=== PATIENT | female | born 1955 | race Caucasian/White ===

== ENCOUNTER → 2018-06-13 | Day surgery (SDC) | payer BC ==
[2018-06-11 11:55] LABS: Basophils # (auto) 0 uL; Basophils % (auto) 0.3 % (0.0-2.0); Eosinophils # (auto) 0.1 uL; Eosinophils % (auto) 1.9 % (0.0-7.0); Hematocrit 38.9 % (36.0-46.0); Hemoglobin 12.8 g/dL (12.2-16.2); Lymphocytes # (auto) 1.9 uL; Lymphocytes % (auto) 31.9 % (10.0-50.0); Mean Corpuscular Volume 94.1 fL (80.0-100.0); Monocytes # (auto) 0.1 uL; Monocytes % (auto) 1.6 % (0.0-12.0); Neutrophils # (auto) 3.9 uL; Neutrophils % (auto) 64.3 % (37.0-80.0); Platelet Count (auto) 287 10^3/uL (140-450); Red Blood Cells 4.14 10^6/uL (4.0-5.20); Red Cell Distribution Width 13.1 % (11.8-14.3); White Blood Cell 6.1 10^3/uL (4.4-10.8)
[2018-06-11 12:05] LABS: INR 0.87 (0.9-1.15); Partial Thromboplastin Time 25.4 sec (23.78-33.04); Prothrombin Time 9.4 sec (9.27-12.13)
[2018-06-11 12:07] LABS: Potassium 3.6 mmol/L (3.5-5.1)
[2018-06-11 12:12] LABS: Urine Bacteria NONE SEEN /hpf (None Seen); Urine Blood Negative /uL (Negative); Urine Specific Gravity 1.003 (1.001-1.035); Urine WBC <1 /hpf (0 - 5)
[2018-06-11 12:15] LABS: Albumin 3.6 g/dL (3.4-5.0); Bilirubin, Total 0.6 mg/dL (0.2-1.0); Calcium 8.7 mg/dL (8.5-10.1); Total Protein 7.2 g/dL (6.4-8.2)
[~2018-06-13] VITALS: Ht 157.5 cm; Wt 63.5 kg
[~2018-06-13] MED LIST: ALBU1AER4 IN; FLUT1AER3 IN; GLYCOPYRROLATE 0.2 MG/ML 1ML VIAL ONE; HEPARIN 1,000 UNITS/ml 1ML VIAL ONE; HEPARIN SODIUM (PORCINE) 5000 UNITS/ML 1ML VIAL ONE; HYDROmorphone HCL 2 MG/ML VL IV PRN; LEVO25TA6 PO; LEVOFLOXACIN 500MG 100 ML IV ONE; LIDOCAINE 1% HCL (LOCAL ANESTH.) INJ 20ML MDV ONE; LISI-646 PO; METOCLOPRAMIDE HCL 5MG/ml INJ 2ml VIAL ONE; MIDAZOLAM HCL 1MG/1ML-2 ML VIAL ONE; NALOXONE HCL 0.4 MG/ML VIAL IV PRN; ONDANSETRON HCL 4 MG/2 ML VIAL IV ONE; PROPOFOL 10 MG/ML 20 ML IV ONE; SIMV10TA84 PO; diphenhdrAMINE HCL 50 MG/1 ML VL ONE; fentaNYL CITRATE 100 MCG/2 ML VL ONE
[2018-06-13 10:07] VITALS: BP 135/78
== END | disposition home or self-care (01) ==
LOC: EDUNIT# → SUR 07:53
PROVIDERS: ATTEND Surgery
DX: C34.90 Malignant neoplasm of unspecified part of unspecified bronchus or lung (principal); J44.9 Chronic obstructive pulmonary disease, unspecified; G47.33 Obstructive sleep apnea (adult) (pediatric); J45.909 Unspecified asthma, uncomplicated; E11.42 Type 2 diabetes mellitus with diabetic polyneuropathy; E03.9 Hypothyroidism, unspecified; E78.00 Pure hypercholesterolemia, unspecified; Z90.49 Acquired absence of other specified parts of digestive tract; Z98.890 Other specified postprocedural states; Z88.0 Allergy status to penicillin; Z88.8 Allergy status to other drugs, medicaments and biological substances; Z79.899 Other long term (current) drug therapy; Z79.82 Long term (current) use of aspirin
CPT/HCPCS: 36415; 36561; 71045; 80053; 81001; 85025; 85610; 85730; C1788; J1200; J1644; J1956; J2001; J2250; J2704; J2765; J3010; J7040

== ENCOUNTER → 2018-06-20 | Outpatient (CLI) | payer BC ==
[~2018-06-20] MED LIST changes: -GLYCOPYRROLATE 0.2 MG/ML 1ML VIAL ONE; -HEPARIN 1,000 UNITS/ml 1ML VIAL ONE; -HEPARIN SODIUM (PORCINE) 5000 UNITS/ML 1ML VIAL ONE; -HYDROmorphone HCL 2 MG/ML VL IV PRN; -LEVOFLOXACIN 500MG 100 ML IV ONE; -LIDOCAINE 1% HCL (LOCAL ANESTH.) INJ 20ML MDV ONE; -METOCLOPRAMIDE HCL 5MG/ml INJ 2ml VIAL ONE; -MIDAZOLAM HCL 1MG/1ML-2 ML VIAL ONE; -NALOXONE HCL 0.4 MG/ML VIAL IV PRN; -ONDANSETRON HCL 4 MG/2 ML VIAL IV ONE; -PROPOFOL 10 MG/ML 20 ML IV ONE; -diphenhdrAMINE HCL 50 MG/1 ML VL ONE; -fentaNYL CITRATE 100 MCG/2 ML VL ONE
[2018-06-20 10:36] LABS: Hematocrit 35.6 % (36.0-46.0); Hemoglobin 12.1 g/dL (12.2-16.2); Mean Corpuscular Hemoglobin 31.9 pg (28.0-32.0); Mean Corpuscular Volume 93.8 fL (80.0-100.0); Platelet Count (auto) 225 10^3/uL (140-450); Red Blood Cells 3.79 10^6/uL (4.0-5.20); Red Cell Distribution Width 12.7 % (11.8-14.3); White Blood Cell 2.8 10^3/uL (4.4-10.8)
[2018-06-20 10:51] LABS: Band Neutrophils % (manual) 0; Basophils % (manual) 0 (0.0-2.0); Blast Cells 0; Eosinophils % (manual) 0 (0-7); Metamyelocytes % 0; Myelocytes % 0; Promyelocytes % 0; Reactive Lymphocytes 0
[2018-06-20 11:49] LABS: Lymphocytes % (manual) 65 (10.0-50.0); Monocytes % (manual) 18 (0-12)
[2018-06-20 12:17] LABS: Albumin 3.6 g/dL (3.4-5.0); BUN/Creatinine Ratio 20.3; Calcium 8.6 mg/dL (8.5-10.1); Potassium 3.9 mmol/L (3.5-5.1)
[2018-06-20 12:20] LABS: Bilirubin, Total 0.2 mg/dL (0.2-1.0); Total Protein 7.7 g/dL (6.4-8.2)
== END | disposition home or self-care (01) ==
LOC: LAB 09:01
PROVIDERS: ATTEND Internal Medicine
DX: C34.2 Malignant neoplasm of middle lobe, bronchus or lung (principal)
CPT/HCPCS: 36415; 80053; 85007; 85027

== ENCOUNTER 2018-06-21 17:00 | Emergency (ER) | payer BC ==
[~2018-06-21] VITALS: Ht 157.5 cm; Wt 63.5 kg
[2018-06-21 18:13] LABS: Albumin 3.4 g/dL (3.4-5.0); Calcium 8.1 mg/dL (8.5-10.1); Potassium 3.6 mmol/L (3.5-5.1)
[2018-06-21 18:15] LABS: BUN/Creatinine Ratio 18.7
[2018-06-21 18:16] LABS: Hematocrit 32.6 % (36.0-46.0); Hemoglobin 11.2 g/dL (12.2-16.2); Mean Corpuscular Hemoglobin 31.9 pg (28.0-32.0); Mean Corpuscular Hgb Conc. 34.3 g/dL (32.0-36.0); Mean Corpuscular Volume 93.2 fL (80.0-100.0); Platelet Count (auto) 293 10^3/uL (140-450); Red Cell Distribution Width 12.7 % (11.8-14.3); White Blood Cell 4.3 10^3/uL (4.4-10.8)
[2018-06-21 18:17] LABS: Bilirubin, Total 0.3 mg/dL (0.2-1.0); Total Protein 7.1 g/dL (6.4-8.2)
[2018-06-21 18:26] LABS: Band Neutrophils % (manual) 0; Basophils % (manual) 0 (0.0-2.0); Blast Cells 0; Metamyelocytes % 0; Myelocytes % 0; Promyelocytes % 0; Reactive Lymphocytes 0
[2018-06-21] MEDS ORDERED: SODIUM CHLORIDE 0.9% 250 ML IV ONE (20:15)
[2018-06-21 20:21] LABS: Eosinophils % (manual) 3 (0-7); Lymphocytes % (manual) 45 (10.0-50.0); Monocytes % (manual) 12 (0-12)
[2018-06-21 20:38] LABS: Urine Bacteria NONE SEEN /hpf (None Seen); Urine Blood Negative /uL (Negative); Urine Specific Gravity 1.007 (1.001-1.035); Urine WBC <1 /hpf (0 - 5)
[2018-06-21 22:22] VITALS: BP 122/82
== END 2018-06-21 22:23 | disposition home or self-care (01) ==
LOC: ER 17:02
DX: D72.819 Decreased white blood cell count, unspecified (principal); C34.91 Malignant neoplasm of unspecified part of right bronchus or lung; E11.9 Type 2 diabetes mellitus without complications; I10 Essential (primary) hypertension; E03.9 Hypothyroidism, unspecified
CPT/HCPCS: 36415; 71046; 80053; 81001; 84484; 85007; 85027; 93005; 96360

== ENCOUNTER → 2018-06-25 | Outpatient (CLI) | payer BC ==
[2018-06-25 09:58] LABS: Hematocrit 35.5 % (36.0-46.0); Hemoglobin 11.7 g/dL (12.2-16.2); Mean Corpuscular Hemoglobin 30.9 pg (28.0-32.0); Mean Corpuscular Hgb Conc. 32.9 g/dL (32.0-36.0); Mean Corpuscular Volume 93.9 fL (80.0-100.0); Platelet Count (auto) 488 10^3/uL (140-450); Red Blood Cells 3.78 10^6/uL (4.0-5.20); Red Cell Distribution Width 13.2 % (11.8-14.3); White Blood Cell 7.3 10^3/uL (4.4-10.8)
[2018-06-25 10:15] LABS: Basophils % (manual) 0 (0.0-2.0); Blast Cells 0; Metamyelocytes % 0; Myelocytes % 0; Promyelocytes % 0; Reactive Lymphocytes 0
[2018-06-25 11:15] LABS: Band Neutrophils % (manual) 1; Eosinophils % (manual) 1 (0-7); Lymphocytes % (manual) 31 (10.0-50.0); Monocytes % (manual) 15 (0-12)
== END | disposition home or self-care (01) ==
LOC: LAB 09:52
PROVIDERS: ATTEND Internal Medicine
DX: C34.2 Malignant neoplasm of middle lobe, bronchus or lung (principal)
CPT/HCPCS: 36415; 85007; 85027

== ENCOUNTER → 2018-07-11 | Outpatient (CLI) | payer BC ==
[2018-07-11 09:55] LABS: Hematocrit 32.3 % (36.0-46.0); Hemoglobin 10.8 g/dL (12.2-16.2); Mean Corpuscular Hemoglobin 31.2 pg (28.0-32.0); Mean Corpuscular Hgb Conc. 33.4 g/dL (32.0-36.0); Mean Corpuscular Volume 93.4 fL (80.0-100.0); Platelet Count (auto) 89 10^3/uL (140-450); Red Blood Cells 3.46 10^6/uL (4.0-5.20); Red Cell Distribution Width 13.3 % (11.8-14.3); White Blood Cell 25.2 10^3/uL (4.4-10.8)
[2018-07-11 10:06] LABS: Basophils % (manual) 0 (0.0-2.0); Blast Cells 0; Promyelocytes % 0; Reactive Lymphocytes 0
[2018-07-11 10:14] LABS: Chloride 102 mmol/L (98-107); Sodium 136 mmol/L (136-145)
[2018-07-11 10:20] LABS: Alanine Aminotransferase 18 U/L (13-56); Albumin 3.6 g/dL (3.4-5.0); Alkaline Phosphatase 137 U/L (45-117); Anion Gap 6 (5-15); Aspartate Aminotransferase 23 U/L (15-37); BUN/Creatinine Ratio 18.7; Bilirubin, Total 0.3 mg/dL (0.2-1.0); Blood Urea Nitrogen 14 mg/dL (7-18); Calcium 8.8 mg/dL (8.5-10.1); Carbon Dioxide 28 mmol/L (21-32); GFR African American > 60 mL/min; GFR Non-African American > 60 mL/min; Glucose 114 mg/dL (74-106); Total Protein 7.6 g/dL (6.4-8.2)
[2018-07-11 13:22] LABS: Band Neutrophils % (manual) 8; Eosinophils % (manual) 2 (0-7); Lymphocytes % (manual) 17 (10.0-50.0); Metamyelocytes % 2; Monocytes % (manual) 6 (0-12); Myelocytes % 2
== END | disposition home or self-care (01) ==
LOC: LAB 09:41
PROVIDERS: ATTEND Internal Medicine
DX: C34.2 Malignant neoplasm of middle lobe, bronchus or lung (principal)
CPT/HCPCS: 36415; 80053; 85007; 85027

== ENCOUNTER → 2018-07-17 | Outpatient (CLI) | payer BC ==
[2018-07-17 09:32] LABS: Hematocrit 30.5 % (36.0-46.0); Hemoglobin 10.3 g/dL (12.2-16.2); Mean Corpuscular Hgb Conc. 33.8 g/dL (32.0-36.0)
[2018-07-17 09:36] LABS: Mean Corpuscular Hemoglobin 31.5 pg (28.0-32.0); Mean Corpuscular Volume 93.2 fL (80.0-100.0); Platelet Count (auto) 544 10^3/uL (140-450); Red Blood Cells 3.27 10^6/uL (4.0-5.20); Red Cell Distribution Width 13.8 % (11.8-14.3); White Blood Cell 12.8 10^3/uL (4.4-10.8)
[2018-07-17 09:43] LABS: Basophils % (manual) 0 (0.0-2.0); Blast Cells 0; Metamyelocytes % 0; Myelocytes % 0; Promyelocytes % 0; Reactive Lymphocytes 0
[2018-07-17 11:16] LABS: Band Neutrophils % (manual) 2; Eosinophils % (manual) 1 (0-7); Lymphocytes % (manual) 19 (10.0-50.0); Monocytes % (manual) 10 (0-12)
== END | disposition home or self-care (01) ==
LOC: LAB 09:19
PROVIDERS: ATTEND Internal Medicine
DX: C34.90 Malignant neoplasm of unspecified part of unspecified bronchus or lung (principal)
CPT/HCPCS: 36415; 85007; 85027

== ENCOUNTER → 2018-07-25 | Outpatient (CLI) | payer BC ==
[2018-07-25 10:17] LABS: Basophils # (auto) 0 uL; Basophils % (auto) 0.8 % (0.0-2.0); Eosinophils # (auto) 0 uL; Eosinophils % (auto) 0.7 % (0.0-7.0); Hematocrit 30.6 % (36.0-46.0); Hemoglobin 10.4 g/dL (12.2-16.2); Lymphocytes # (auto) 1.9 uL; Mean Corpuscular Hemoglobin 31.9 pg (28.0-32.0); Mean Corpuscular Hgb Conc. 33.9 g/dL (32.0-36.0); Mean Corpuscular Volume 94.1 fL (80.0-100.0); Monocytes # (auto) 0.7 uL; Monocytes % (auto) 10.9 % (0.0-12.0); Neutrophils # (auto) 3.4 uL; Neutrophils % (auto) 56.6 % (37.0-80.0); Platelet Count (auto) 403 10^3/uL (140-450); Red Blood Cells 3.26 10^6/uL (4.0-5.20); Red Cell Distribution Width 14.6 % (11.8-14.3)
[2018-07-25 11:53] LABS: Albumin 3.5 g/dL (3.4-5.0); BUN/Creatinine Ratio 18.8; Bilirubin, Total 0.6 mg/dL (0.2-1.0); Calcium 8.6 mg/dL (8.5-10.1); Total Protein 7.7 g/dL (6.4-8.2)
== END | disposition home or self-care (01) ==
LOC: LAB 09:47
PROVIDERS: ATTEND Internal Medicine
DX: C34.2 Malignant neoplasm of middle lobe, bronchus or lung (principal)
CPT/HCPCS: 36415; 80053; 85025

== ENCOUNTER → 2018-08-07 | Outpatient (CLI) | payer BC ==
[2018-08-07 09:19] LABS: Hematocrit 29.3 % (36.0-46.0); Hemoglobin 9.9 g/dL (12.2-16.2); Mean Corpuscular Hemoglobin 32.2 pg (28.0-32.0); Mean Corpuscular Hgb Conc. 33.6 g/dL (32.0-36.0); Mean Corpuscular Volume 95.7 fL (80.0-100.0); Platelet Count (auto) 386 10^3/uL (140-450); Red Blood Cells 3.06 10^6/uL (4.0-5.20); Red Cell Distribution Width 16.3 % (11.8-14.3); White Blood Cell 12.4 10^3/uL (4.4-10.8)
[2018-08-07 09:22] LABS: Basophils % (manual) 0 (0.0-2.0); Blast Cells 0; Myelocytes % 0; Promyelocytes % 0; Reactive Lymphocytes 0
[2018-08-07 09:27] LABS: BUN/Creatinine Ratio 16.2; Calcium 8.4 mg/dL (8.5-10.1); Potassium 3.9 mmol/L (3.5-5.1)
[2018-08-07 12:40] LABS: Band Neutrophils % (manual) 3; Eosinophils % (manual) 4 (0-7); Lymphocytes % (manual) 22 (10.0-50.0); Metamyelocytes % 1; Monocytes % (manual) 13 (0-12)
== END | disposition home or self-care (01) ==
LOC: LAB 09:00
PROVIDERS: ATTEND Internal Medicine
DX: C34.2 Malignant neoplasm of middle lobe, bronchus or lung (principal)
CPT/HCPCS: 36415; 80048; 85007; 85027

== ENCOUNTER → 2018-08-27 | Outpatient (CLI) | payer BC ==
[2018-08-27 13:19] LABS: Hematocrit 27.3 % (36.0-46.0); Hemoglobin 9.2 g/dL (12.2-16.2); Mean Corpuscular Hemoglobin 33.2 pg (28.0-32.0); Mean Corpuscular Hgb Conc. 33.5 g/dL (32.0-36.0); Mean Corpuscular Volume 99.1 fL (80.0-100.0); Platelet Count (auto) 265 10^3/uL (140-450); Red Blood Cells 2.76 10^6/uL (4.0-5.20); Red Cell Distribution Width 18.3 % (11.8-14.3); White Blood Cell 12.5 10^3/uL (4.4-10.8)
[2018-08-27 13:24] LABS: Band Neutrophils % (manual) 0; Basophils % (manual) 0 (0.0-2.0); Blast Cells 0; Eosinophils % (manual) 0 (0-7); Metamyelocytes % 0; Myelocytes % 0; Promyelocytes % 0; Reactive Lymphocytes 0
[2018-08-27 13:48] LABS: Albumin 3.9 g/dL (3.4-5.0); BUN/Creatinine Ratio 18.5; Bilirubin, Total 0.2 mg/dL (0.2-1.0); Calcium 8.5 mg/dL (8.5-10.1); Total Protein 7.8 g/dL (6.4-8.2)
[2018-08-27 14:22] LABS: Lymphocytes % (manual) 23 (10.0-50.0); Monocytes % (manual) 6 (0-12)
== END | disposition home or self-care (01) ==
LOC: LAB 12:32
PROVIDERS: ATTEND Internal Medicine
DX: C34.2 Malignant neoplasm of middle lobe, bronchus or lung (principal)
CPT/HCPCS: 36415; 80053; 83615; 85007; 85027

== ENCOUNTER → 2018-09-12 | Outpatient (CLI) | payer BC ==
[2018-09-12 12:59] LABS: Hemoglobin 8.4 g/dL (12.2-16.2); Platelet Count (auto) 75 10^3/uL (140-450)
[2018-09-12 13:01] LABS: Hematocrit 24.3 % (36.0-46.0); Mean Corpuscular Hemoglobin 34.7 pg (28.0-32.0); Mean Corpuscular Hgb Conc. 34.4 g/dL (32.0-36.0); Mean Corpuscular Volume 100.9 fL (80.0-100.0); Red Blood Cells 2.41 10^6/uL (4.0-5.20); White Blood Cell 23.6 10^3/uL (4.4-10.8)
[2018-09-12 13:10] LABS: Red Cell Distribution Width 20.5 % (11.8-14.3)
[2018-09-12 13:12] LABS: Basophils % (manual) 0 (0.0-2.0); Eosinophils % (manual) 0 (0-7); Promyelocytes % 0; Reactive Lymphocytes 0
[2018-09-12 13:32] LABS: Albumin 3.8 g/dL (3.4-5.0); Calcium 8.4 mg/dL (8.5-10.1); Potassium 3.8 mmol/L (3.5-5.1)
[2018-09-12 13:36] LABS: BUN/Creatinine Ratio 14.1; Bilirubin, Total 0.2 mg/dL (0.2-1.0); Total Protein 7.7 g/dL (6.4-8.2)
[2018-09-12 20:55] LABS: Band Neutrophils % (manual) 20; Lymphocytes % (manual) 12 (10.0-50.0); Metamyelocytes % 8; Monocytes % (manual) 8 (0-12)
[2018-09-12 21:21] LABS: Blast Cells 1; Myelocytes % 1
== END | disposition home or self-care (01) ==
LOC: LAB 12:34
PROVIDERS: ATTEND Internal Medicine
DX: C34.2 Malignant neoplasm of middle lobe, bronchus or lung (principal)
CPT/HCPCS: 36415; 80053; 83615; 85007; 85027

== ENCOUNTER → 2018-09-17 | Outpatient (CLI) | payer BC ==
[2018-09-17 12:56] LABS: Hemoglobin 8.7 g/dL (12.2-16.2); Mean Corpuscular Volume 104.1 fL (80.0-100.0)
[2018-09-17 12:59] LABS: Hematocrit 26.5 % (36.0-46.0); Mean Corpuscular Hemoglobin 34.1 pg (28.0-32.0); Mean Corpuscular Hgb Conc. 32.8 g/dL (32.0-36.0); Platelet Count (auto) 292 10^3/uL (140-450); Red Blood Cells 2.55 10^6/uL (4.0-5.20); White Blood Cell 21.4 10^3/uL (4.4-10.8)
[2018-09-17 13:26] LABS: Red Cell Distribution Width 22.6 % (11.8-14.3)
[2018-09-17 13:27] LABS: Basophils % (manual) 0 (0.0-2.0); Blast Cells 0; Calcium 8.9 mg/dL (8.5-10.1); Eosinophils % (manual) 0 (0-7); Metamyelocytes % 0; Myelocytes % 0; Potassium 4.1 mmol/L (3.5-5.1); Promyelocytes % 0; Reactive Lymphocytes 0
[2018-09-17 13:30] LABS: BUN/Creatinine Ratio 17.2; Bilirubin, Total 0.3 mg/dL (0.2-1.0); Total Protein 7.6 g/dL (6.4-8.2)
[2018-09-17 17:42] LABS: Band Neutrophils % (manual) 7; Lymphocytes % (manual) 10 (10.0-50.0); Monocytes % (manual) 8 (0-12)
== END | disposition home or self-care (01) ==
LOC: LAB 12:20
PROVIDERS: ATTEND Internal Medicine
DX: C34.2 Malignant neoplasm of middle lobe, bronchus or lung (principal)
CPT/HCPCS: 36415; 80053; 83615; 85007; 85027

== ENCOUNTER → 2018-10-09 | Outpatient (CLI) | payer BC ==
[2018-10-09 13:06] LABS: Hemoglobin 8.3 g/dL (12.2-16.2); Mean Corpuscular Hgb Conc. 32.6 g/dL (32.0-36.0)
[2018-10-09 13:08] LABS: Hematocrit 25.4 % (36.0-46.0); Mean Corpuscular Hemoglobin 35.5 pg (28.0-32.0); Platelet Count (auto) 243 10^3/uL (140-450); Red Blood Cells 2.33 10^6/uL (4.0-5.20); White Blood Cell 17.9 10^3/uL (4.4-10.8)
[2018-10-09 13:18] LABS: Red Cell Distribution Width 22.1 % (11.8-14.3)
[2018-10-09 13:19] LABS: Basophils % (manual) 0 (0.0-2.0); Blast Cells 0; Promyelocytes % 0; Reactive Lymphocytes 0
[2018-10-09 13:23] LABS: Albumin 3.9 g/dL (3.4-5.0); BUN/Creatinine Ratio 21.1; Calcium 8.3 mg/dL (8.5-10.1)
[2018-10-09 13:26] LABS: Bilirubin, Total 0.2 mg/dL (0.2-1.0); Total Protein 7.3 g/dL (6.4-8.2)
[2018-10-09 13:41] LABS: Band Neutrophils % (manual) 2; Eosinophils % (manual) 1 (0-7); Lymphocytes % (manual) 17 (10.0-50.0); Metamyelocytes % 2; Monocytes % (manual) 7 (0-12); Myelocytes % 2
== END | disposition home or self-care (01) ==
LOC: LAB 12:50
PROVIDERS: ATTEND Internal Medicine
DX: C34.2 Malignant neoplasm of middle lobe, bronchus or lung (principal)
CPT/HCPCS: 36415; 80053; 83615; 85007; 85027

== ENCOUNTER → 2018-10-26 | Outpatient (CLI) | payer BC ==
[2018-10-26 08:20] LABS: Basophils # (auto) 0 uL; Basophils % (auto) 0.4 % (0.0-2.0); Eosinophils # (auto) 0.2 uL; Eosinophils % (auto) 3.8 % (0.0-7.0); Hematocrit 38.1 % (36.0-46.0); Hemoglobin 12.3 g/dL (12.2-16.2); Lymphocytes # (auto) 1.6 uL; Lymphocytes % (auto) 27.1 % (10.0-50.0); Mean Corpuscular Hemoglobin 36.4 pg (28.0-32.0); Mean Corpuscular Hgb Conc. 32.3 g/dL (32.0-36.0); Mean Corpuscular Volume 112.6 fL (80.0-100.0); Monocytes # (auto) 0.5 uL; Monocytes % (auto) 7.7 % (0.0-12.0); Neutrophils # (auto) 3.6 uL; Platelet Count (auto) 257 10^3/uL (140-450); Red Blood Cells 3.39 10^6/uL (4.0-5.20); Red Cell Distribution Width 19.6 % (11.8-14.3); White Blood Cell 5.9 10^3/uL (4.4-10.8)
[2018-10-26 09:12] LABS: Magnesium 2.3 mg/dL (1.6-2.6)
== END | disposition home or self-care (01) ==
LOC: LAB 07:32
PROVIDERS: ATTEND Internal Medicine
DX: E11.9 Type 2 diabetes mellitus without complications (principal); I10 Essential (primary) hypertension; R25.2 Cramp and spasm
CPT/HCPCS: 36415; 80061; 82550; 82607; 83036; 83540; 83735; 84132; 85025

== ENCOUNTER → 2018-12-10 | Outpatient (CLI) | payer BC ==
[2018-12-10 12:42] LABS: Basophils # (auto) 0 uL; Eosinophils # (auto) 0.1 uL; Hemoglobin 11.9 g/dL (12.2-16.2); Lymphocytes # (auto) 1.5 uL; Monocytes # (auto) 0.6 uL; Neutrophils # (auto) 1.8 uL; Neutrophils % (auto) 44.3 % (37.0-80.0)
[2018-12-10 12:44] LABS: Basophils % (auto) 0.3 % (0.0-2.0); Eosinophils % (auto) 3.1 % (0.0-7.0); Hematocrit 34.6 % (36.0-46.0); Lymphocytes % (auto) 37.9 % (10.0-50.0); Mean Corpuscular Hemoglobin 35.5 pg (28.0-32.0); Mean Corpuscular Hgb Conc. 34.5 g/dL (32.0-36.0); Mean Corpuscular Volume 102.7 fL (80.0-100.0); Monocytes % (auto) 14.4 % (0.0-12.0); Nucleated Red Blood Cells % 0.2 %; Platelet Count (auto) 250 10^3/uL (140-450); Red Blood Cells 3.37 10^6/uL (4.0-5.20); Red Cell Distribution Width 14.2 % (11.8-14.3)
[2018-12-10 13:45] LABS: Potassium 3.5 mmol/L (3.5-5.1)
[2018-12-10 13:51] LABS: Albumin 3.3 g/dL (3.4-5.0); Bilirubin, Total 0.4 mg/dL (0.2-1.0); Calcium 8.9 mg/dL (8.5-10.1); Total Protein 7.4 g/dL (6.4-8.2)
== END | disposition home or self-care (01) ==
LOC: LAB 12:19
PROVIDERS: ATTEND Internal Medicine
DX: C34.2 Malignant neoplasm of middle lobe, bronchus or lung (principal); I10 Essential (primary) hypertension; E11.9 Type 2 diabetes mellitus without complications
CPT/HCPCS: 36415; 80053; 83615; 85025

== ENCOUNTER → 2018-12-31 | Outpatient (CLI) | payer BC ==
[2018-12-31 13:02] LABS: Basophils # (auto) 0 uL; Basophils % (auto) 0.8 % (0.0-2.0); Eosinophils # (auto) 0.3 uL; Eosinophils % (auto) 5.5 % (0.0-7.0); Hematocrit 37.8 % (36.0-46.0); Hemoglobin 12.9 g/dL (12.2-16.2); Lymphocytes % (auto) 36.9 % (10.0-50.0); Mean Corpuscular Hemoglobin 33.9 pg (28.0-32.0); Mean Corpuscular Hgb Conc. 34.2 g/dL (32.0-36.0); Mean Corpuscular Volume 99.1 fL (80.0-100.0); Monocytes # (auto) 0.7 uL; Monocytes % (auto) 12.9 % (0.0-12.0); Neutrophils # (auto) 2.3 uL; Neutrophils % (auto) 43.9 % (37.0-80.0); Nucleated Red Blood Cells % 0.1 %; Platelet Count (auto) 266 10^3/uL (140-450); Red Blood Cells 3.81 10^6/uL (4.0-5.20); Red Cell Distribution Width 14.5 % (11.8-14.3); White Blood Cell 5.3 10^3/uL (4.4-10.8)
[2018-12-31 13:12] LABS: INR 0.98 (0.9-1.15); Partial Thromboplastin Time 30.9 sec (23.64-32.05)
[2018-12-31 13:40] LABS: Albumin 3.7 g/dL (3.4-5.0); BUN/Creatinine Ratio 8.9; Calcium 9.3 mg/dL (8.5-10.1); Potassium 3.8 mmol/L (3.5-5.1)
[2018-12-31 13:43] LABS: Bilirubin, Total 0.4 mg/dL (0.2-1.0); Total Protein 7.3 g/dL (6.4-8.2)
== END | disposition home or self-care (01) ==
LOC: LAB 12:42
PROVIDERS: ATTEND Internal Medicine
DX: C34.2 Malignant neoplasm of middle lobe, bronchus or lung (principal)
CPT/HCPCS: 36415; 80053; 85025; 85610; 85730

== ENCOUNTER → 2019-01-25 | Outpatient (CLI) | payer BC | END | disposition home or self-care (01) | LOC: LAB 13:08 | PROVIDERS: ATTEND Internal Medicine | DX: E03.8 Other specified hypothyroidism (principal) | CPT/HCPCS: 36415; 84439; 84443 ==

== ENCOUNTER 2019-02-04 22:41 | Inpatient (IN) | payer BC, MEDICARE ==
[~2019-02-04] VITALS: Ht 157.5 cm; Wt 67.5 kg
[~2019-02-04 22:41] MED LIST changes: -ALBU1AER4; -BACL10TA; -MORP30TA5
[2019-02-05] VITALS (12 sets, daily range): BP systolic 96–143; BP diastolic 55–86
[2019-02-05] MEDS ORDERED: ONDANSETRON HCL 4 MG/2 ML VIAL IV ONE (00:45)
[2019-02-05] MEDS ORDERED: SODIUM CHLORIDE 0.9% 1,000 ML IV ONE ×2 (00:45→01:45)
[2019-02-05] MEDS ORDERED: FAMOTIDINE (10MG/ML) 2ML VL IV ONE (00:45)
[2019-02-05] MEDS ORDERED: ALPRAZolam 0.25 MG TAB PO ONE (00:45)
[2019-02-05 01:15] LABS: Albumin 3.4 g/dL (3.4-5.0); BUN/Creatinine Ratio 15.4; Calcium 8.5 mg/dL (8.5-10.1); Hematocrit 31.7 % (36.0-46.0); Mean Corpuscular Hemoglobin 31.9 pg (28.0-32.0); Mean Corpuscular Hgb Conc. 34.6 g/dL (32.0-36.0); Mean Corpuscular Volume 92.2 fL (80.0-100.0); Red Blood Cells 3.44 10^6/uL (4.0-5.20); Red Cell Distribution Width 14.2 % (11.8-14.3)
[2019-02-05 01:18] LABS: Bilirubin, Total 0.5 mg/dL (0.2-1.0)
[2019-02-05 01:20] LABS: Platelet Count (auto) 20 10^3/uL (140-450)
[2019-02-05 01:21] LABS: Potassium 2.9 mmol/L (3.5-5.1)
[2019-02-05 01:22] LABS: Band Neutrophils % (manual) 0; Basophils % (manual) 0 (0.0-2.0); Blast Cells 0; Eosinophils % (manual) 0 (0-7); INR 1.07 (0.9-1.15); Metamyelocytes % 0; Myelocytes % 0; Partial Thromboplastin Time 43.4 sec (23.64-32.05); Promyelocytes % 0
[2019-02-05] MEDS ORDERED: SODIUM CHL 3% 500 ML IV ONE ×2 (01:45→05:45)
[2019-02-05] MEDS: POTASSIUM CHL 20MEQ/100ML 100 ML IV SCH ×2 (02:05→03:20)
[2019-02-05 02:40] LABS: Lymphocytes % (manual) 92 (10.0-50.0); Monocytes % (manual) 1 (0-12); Reactive Lymphocytes 5
[2019-02-05 03:43] LABS: Urine Bacteria FEW /hpf (None Seen); Urine Blood Negative /uL (Negative); Urine Specific Gravity 1.003 (1.001-1.035); Urine WBC 2 /hpf (0 - 5)
[2019-02-05] MEDS ORDERED: ONDANSETRON HCL 4 MG/2 ML VIAL IV PRN (05:45)
[2019-02-05] MEDS ORDERED: TEMAZEPAM 15 MG CAP PO PRN (05:45)
[2019-02-05] MEDS ORDERED: ALBUTEROL SULF 2.5 MG/0.5ML(0.5%) NEB SOLN NEB PRN (05:45)
[2019-02-05] MEDS ORDERED: NITROGLYCERIN 0.4 MG SL TAB SL PRN (06:45)
[2019-02-05] MEDS ORDERED: MORPHINE SULF INJ 2 MG/ML SYRINGE 1ML IV PRN (06:45)
[2019-02-05] MEDS ORDERED: SODIUM CHLORIDE 0.9% 1,000 ML IV SCH ×2 (06:45→07:00)
[2019-02-05] MEDS: HYDROmorphone HCL 2 MG TAB PO SCH ×3 (06:55→18:00)
[2019-02-05] MEDS ORDERED: LEVOTHYROXINE SODIUM 25 MCG TAB PO SCH (07:00)
[2019-02-05] MEDS ORDERED: FILGRASTIM(TBO) 480 MCG/0.8 ML SYRG SC ONE (07:30)
[2019-02-05] MEDS ORDERED: LEVOFLOXACIN 500MG 100 ML IV ONE (07:30)
--- NOTE | 2019-02-05 09:00 | NUR ---
Telemetry admit from ER PASCUALSURY admitted to Telemetry unit after SBAR received. Patient oriented to Shanel Donaldson, primary RN, unit, room, bed, and unit policies regarding patient care and visiting hours. Patient now on continuous telemetry monitoring, tele box # 22 and telemetry reading on arrival to unit is sinus rhythm in the 90's. Pt. is awake and alert x4, sitting up in bed. No S/S of distress or SOB, no pain noted or reported at this time. Respirations are even and unlabored on RA. Updated on POC and instructed to call for assistance as needed, pt. verbalized understanding. Family at bedside. Bed locked in lowest position, side rails up x2, call light within reach. Will continue to monitor q1hr and PRN.
--- NOTE | 2019-02-05 09:13 | NUR ---
Respiratory note: PT ASSESSED FOR PRN MED NEB TX. PT STATES THAT SHE DOESN'T WANT A TX AT THIS TIME. NO SOB NOTED. PT IS AWARE TO PRESS THE CALL IF SHE FEELS SOB TO RECEIVE A MED NEB TX . POX 94% ON RA, HR 74, RR 18. B/S ARE CLEAR THROUGHOUT.
[2019-02-05] MEDS ORDERED: MORP-74 (09:39)
[2019-02-05] MEDS ORDERED: BACL10TA (09:39)
[2019-02-05] MEDS ORDERED: ALBU1AER4 (09:39)
[2019-02-05] MEDS: MORPHINE SULF 30 mg ER tab PO SCH ×2 (10:28→22:00)
[2019-02-05] MEDS: LISINOPRIL 20 MG TAB PO SCH (10:29)
[2019-02-05] MEDS: FAMOTIDINE 20 MG TAB PO SCH ×2 (10:29→22:46)
[2019-02-05] MEDS ORDERED: LEVOTHYROXINE SODIUM 100 MCG/5 ML INJ IV ONE (10:45)
--- NOTE | 2019-02-05 13:40 | NUR ---
Platelet transfusion began Vitals stable.
[2019-02-05 14:35] LABS: Basophils # (auto) 0 uL; Eosinophils # (auto) 0 uL; Hemoglobin 9.4 g/dL (12.2-16.2); Lymphocytes # (auto) 0.7 uL; Mean Corpuscular Hgb Conc. 34.7 g/dL (32.0-36.0); Monocytes # (auto) 0 uL; Neutrophils # (auto) 0 uL
[2019-02-05 14:36] LABS: Eosinophils % (auto) 0.8 % (0.0-7.0); Hematocrit 27.2 % (36.0-46.0); Mean Corpuscular Hemoglobin 32.1 pg (28.0-32.0); Mean Corpuscular Volume 92.4 fL (80.0-100.0); Monocytes % (auto) 1.2 % (0.0-12.0); Neutrophils % (auto) 1.9 % (37.0-80.0); Nucleated Red Blood Cells % 0.2 %; Red Blood Cells 2.95 10^6/uL (4.0-5.20); Red Cell Distribution Width 14.3 % (11.8-14.3)
[2019-02-05 14:40] LABS: Lymphocytes % (auto) 96.1 % (10.0-50.0)
[2019-02-05 14:42] LABS: White Blood Cell 0.7 10^3/uL (4.4-10.8)
--- NOTE | 2019-02-05 14:51 | NUR ---
SPOKE WITH KIANNA REGARDING CRITICAL LAB VALUE, WBC OF 0.7 AND PLT COUNT OF 12. RECEIVED NEW ORDERS, WILL FOLLOW THROUGH.
--- NOTE | 2019-02-05 15:00 | NUR ---
Platelet transfusion completed. Vitals stable, no s/s of distress or sob.
[2019-02-05] MEDS: ALPRAZolam 0.25 MG TAB PO PRN (15:02)
[2019-02-05] MEDS: diphenhdrAMINE HCL 25 MG CAP PO PRN (15:36)
[2019-02-05] MEDS: LEVOTHYROXINE SODIUM 100 MCG/5 ML INJ IV SCH (15:36)
--- NOTE | 2019-02-05 18:33 | NUR ---
Respiratory note: NO PRN TX GIVEN AT THIS TIME, NOT INDICATED. PT SLEEPING AND IN NO DISTRESS. SPO2 96% ON RA, HR 71, RR 16.
--- NOTE | 2019-02-05 21:38 | NUR ---
Family updated on pt status Family of SURY GARNER updated on patient's status and condition. All questions and concerns addressed. verbalized understanding.
--- NOTE | 2019-02-05 21:40 | NUR ---
Patient temperature 100.4; cooling measures place prior to infusion of platelets; will continue to monitor.
--- NOTE | 2019-02-05 21:50 | NUR ---
Called/paged Dr. Arita called re:temperature 100.4 prior to platelet infusion. Waiting for call back. Continue care.
[2019-02-05 22:34] LABS: Hematocrit 28.4 % (36.0-46.0); Hemoglobin 9.9 g/dL (12.2-16.2); Mean Corpuscular Hemoglobin 32.3 pg (28.0-32.0); Mean Corpuscular Hgb Conc. 34.8 g/dL (32.0-36.0); Mean Corpuscular Volume 92.7 fL (80.0-100.0); Platelet Count (auto) 31 10^3/uL (140-450); Red Blood Cells 3.06 10^6/uL (4.0-5.20); Red Cell Distribution Width 14.5 % (11.8-14.3)
[2019-02-05] MEDS: ATORVASTATIN 20 MG TAB PO SCH (22:45)
[2019-02-05] MEDS: ACETAMINOPHEN 325 MG TAB PO PRN (22:47)
[2019-02-05 22:50] LABS: BUN/Creatinine Ratio 6.8; Calcium 7.6 mg/dL (8.5-10.1); Potassium 3.7 mmol/L (3.5-5.1)
[2019-02-05 23:02] LABS: White Blood Cell 0.7 10^3/uL (4.4-10.8)
[2019-02-05 23:03] LABS: Band Neutrophils % (manual) 0; Basophils % (manual) 0 (0.0-2.0); Blast Cells 0; Metamyelocytes % 0; Myelocytes % 0; Promyelocytes % 0
[2019-02-06] MEDS: diphenhdrAMINE HCL 25 MG CAP PO PRN (00:04)
[2019-02-06 00:13] VITALS: BP 107/65
[2019-02-06] MEDS: HYDROmorphone HCL 2 MG TAB PO SCH ×3 (00:21→11:32)
--- NOTE | 2019-02-06 01:00 | NUR ---
Platelet transfusion complete. No adverse reactions noted. Tolerated well.
[2019-02-06 01:15] LABS: Eosinophils % (manual) 1 (0-7); Lymphocytes % (manual) 96 (10.0-50.0); Monocytes % (manual) 1 (0-12); Reactive Lymphocytes 2
[2019-02-06 05:10] VITALS: BP 115/70
--- NOTE | 2019-02-06 07:34 | NUR ---
Endorsed care of patient to day shift RN.
--- NOTE | 2019-02-06 07:35 | NUR ---
Opening Shift Note Assumed care of patient, awake and alert x4, sitting up in bed. No S/S of distress or SOB, no pain noted or reported at this time. Respirations are even and unlabored on RA. Updated on POC and instructed to call for assistance as needed, pt. verbalized understanding. Bed locked in lowest position, side rails up x2, call light within reach. Will continue to monitor q1hr and PRN.
[2019-02-06] MEDS ORDERED: SODIUM CHLORIDE 0.9% 1,000 ML IV SCH (07:45)
[2019-02-06 09:00] VITALS: BP 125/75
[2019-02-06] MEDS: MORPHINE SULF 30 mg ER tab PO SCH (09:11)
[2019-02-06] MEDS: LEVOFLOXACIN 500MG 100 ML IV SCH (09:11)
[2019-02-06] MEDS: FAMOTIDINE 20 MG TAB PO SCH ×2 (09:13→22:19)
[2019-02-06] MEDS: LISINOPRIL 20 MG TAB PO SCH (09:13)
[2019-02-06] MEDS: ALPRAZolam 0.25 MG TAB PO PRN ×2 (09:14→22:21)
[2019-02-06] MEDS: FILGRASTIM(TBO) 480 MCG/0.8 ML SYRG SC SCH (09:14)
[2019-02-06 09:29] LABS: Hematocrit 26.8 % (36.0-46.0); Hemoglobin 9.3 g/dL (12.2-16.2); Mean Corpuscular Hemoglobin 32.4 pg (28.0-32.0); Mean Corpuscular Hgb Conc. 34.8 g/dL (32.0-36.0); Mean Corpuscular Volume 93.3 fL (80.0-100.0); Platelet Count (auto) 49 10^3/uL (140-450); Red Blood Cells 2.87 10^6/uL (4.0-5.20); Red Cell Distribution Width 14.1 % (11.8-14.3)
[2019-02-06 09:41] LABS: White Blood Cell 0.7 10^3/uL (4.4-10.8)
[2019-02-06 09:43] LABS: Band Neutrophils % (manual) 0; Basophils % (manual) 0 (0.0-2.0); Eosinophils % (manual) 0 (0-7); Metamyelocytes % 0; Myelocytes % 0
[2019-02-06 09:44] LABS: Blast Cells 0; Promyelocytes % 0; Reactive Lymphocytes 0
[2019-02-06 09:48] LABS: Albumin 2.9 g/dL (3.4-5.0); BUN/Creatinine Ratio 7.5; Potassium 3.7 mmol/L (3.5-5.1)
[2019-02-06 09:51] LABS: Bilirubin, Total 0.5 mg/dL (0.2-1.0); Total Protein 6.4 g/dL (6.4-8.2)
[2019-02-06 10:08] LABS: Lymphocytes % (manual) 96 (10.0-50.0); Monocytes % (manual) 4 (0-12)
--- NOTE | 2019-02-06 10:24 | NUR ---
Respiratory note: PT ASSESSED FOR PRN MED NEB TX, NO TX DESIRED NOR INDICATED AT THIS TIME. HR 87 RR 17 SPO2 95% ON RA BREATH SOUNDS ARE DIMINISHED T/O. PT DENIES ANY SOB/DIFF BREATHING, NO DISTRESS NOTED. PT AND RN AWARE TO HAVE RT PAGED IF NEEDED.
[2019-02-06] MEDS: HYDROCORTISONE SOD SUCC 100 MG/2ML INJ VIAL IV SCH ×2 (12:00→22:21)
[2019-02-06 12:12] LABS: Platelet Count (auto) 12 10^3/uL (140-450)
[2019-02-06 12:43] LABS: Urine Bacteria FEW /hpf (None Seen); Urine Blood Negative /uL (Negative); Urine Mucus FEW (None Seen); Urine Specific Gravity 1.008 (1.001-1.035); Urine WBC 2 /hpf (0 - 5)
[2019-02-06 12:57] LABS: Creatinine, Urine 74 mg/dL (30.0-125.0); Sodium Urine 67 mmol/L (40-220)
[2019-02-06 13:00] VITALS: BP 130/81
[2019-02-06 15:29] LABS: Calcium 7.1 mg/dL (8.5-10.1); Potassium 3.3 mmol/L (3.5-5.1)
[2019-02-06 16:51] VITALS: BP 127/82
[2019-02-06] MEDS ORDERED: POTASSIUM CHL 20 Meq TABLET PO ONE (19:30)
--- NOTE | 2019-02-06 19:42 | NUR ---
Opening Shift Note Assumed care of patient, awake and alert. No S/S of distress/SOB or pain. Instructed on POC and to call for assist PRN, will continue to monitor for changes Q1hr and PRN.
[2019-02-06 21:30] VITALS: BP 126/71
[2019-02-06] MEDS: ATORVASTATIN 20 MG TAB PO SCH (22:20)
--- NOTE | 2019-02-06 22:28 | NUR ---
Respiratory note: ASSESSED PT FOR PRN MED NEB AT THIS TIME, PT DENIES SOB AT THIS TIME, NO RESP DISTRESS NOTED, NO TX INDICATED, PULSE OX 94% ON RA, HR 88, RR 20, BILATERAL BS CLEAR. RN AT BEDSIDE
[2019-02-07 05:00] VITALS: BP 127/78
--- NOTE | 2019-02-07 07:10 | NUR ---
ENDORSED CARE OF PATIENT TO DAY SHIFT RN.
--- NOTE | 2019-02-07 08:00 | NUR ---
Opening Shift Note Assumed care of patient, awake, alert, and oriented x4. No S/S of distress/SOB or pain. Port-A-Cath in left upper chest and is asymptomatic, intact, patent, and saline locked. Bed is locked and in lowest position and call light is within reach. Instructed on POC and to call for assist PRN, and patient verbalized understanding. Will continue to monitor for changes Q1hr and PRN.
[2019-02-07 09:00] VITALS: BP 135/86
--- NOTE | 2019-02-07 09:00 | NUR ---
Patient ate 50% of breakfast.
[2019-02-07] MEDS: LEVOFLOXACIN 500MG 100 ML IV SCH (09:46)
[2019-02-07] MEDS: HYDROCORTISONE SOD SUCC 100 MG/2ML INJ VIAL IV SCH ×2 (09:46→22:22)
[2019-02-07] MEDS: FAMOTIDINE 20 MG TAB PO SCH ×2 (09:47→22:22)
[2019-02-07] MEDS: LEVOTHYROXINE SODIUM 100 MCG/5 ML INJ IV SCH (09:47)
[2019-02-07] MEDS: FILGRASTIM(TBO) 480 MCG/0.8 ML SYRG SC SCH (10:00)
--- NOTE | 2019-02-07 10:00 | NUR ---
Accessed Port-A-Cath for morning blood draw.
--- NOTE | 2019-02-07 10:30 | NUR ---
Dr. Lugo, Hospitalist, at bedside. No new orders received. Awaiting morning lab results.
[2019-02-07 10:56] LABS: Hematocrit 25.7 % (36.0-46.0); Hemoglobin 8.9 g/dL (12.2-16.2); Mean Corpuscular Hgb Conc. 34.8 g/dL (32.0-36.0); Platelet Count (auto) 35 10^3/uL (140-450); Red Blood Cells 2.79 10^6/uL (4.0-5.20); Red Cell Distribution Width 14.3 % (11.8-14.3)
[2019-02-07 10:59] LABS: White Blood Cell 0.5 10^3/uL (4.4-10.8)
[2019-02-07 11:00] LABS: Calcium 8.4 mg/dL (8.5-10.1)
--- NOTE | 2019-02-07 11:00 | NUR ---
Received call from Rylee in lab; critical WBC level of 0.5. Informed Dr. Lugo, Hospitalist; no new orders received.
[2019-02-07 11:02] LABS: Blast Cells 0; Promyelocytes % 0; Reactive Lymphocytes 0
[2019-02-07 11:05] LABS: Band Neutrophils % (manual) 0; Basophils % (manual) 0 (0.0-2.0); Eosinophils % (manual) 0 (0-7); Metamyelocytes % 0; Myelocytes % 0
--- NOTE | 2019-02-07 11:15 | NUR ---
Informed Dr. Pardeep Allen, [employer] Engraver, CMP results were in chart from blood draw this AM; patient sodium level is 129.
--- NOTE | 2019-02-07 11:19 | NUR ---
Respiratory Therapist at bedside.
--- NOTE | 2019-02-07 11:19 | NUR ---
RT NOTE: NO TX INDICATED AT THIS TIME. NO SIGNS OF RESPIRATORY DISTRESS NOTED. LUNG SOUNDS CLEAR DIMINISHED T/O. ON RA SPO2 24 HR 89 RR 14. PT AWARE TO CALL FOR TX IF NEED ARISES. WILL CONTINUE TO MONITOR.
[2019-02-07 11:46] LABS: Lymphocytes % (manual) 86 (10.0-50.0); Monocytes % (manual) 2 (0-12)
[2019-02-07 13:00] VITALS: BP 135/99
--- NOTE | 2019-02-07 14:30 | NUR ---
Patient ambulated to bedside commode independently with minimal assistance.
[2019-02-07] MEDS: ACETAMINOPHEN 325 MG TAB PO PRN (14:39)
--- NOTE | 2019-02-07 15:27 | NUR ---
Patient reporting chronic back pain of 8/10 in center of back. Provided heat packs and Tylenol as ordered.
--- NOTE | 2019-02-07 15:28 | NUR ---
Paged Dr. Lugo, Hospitalist, for patient requesting transdermal pain patch for back, and received immediate response; new orders received.
[2019-02-07] MEDS: SODIUM CHLORIDE 0.9% 1,000 ML IV SCH (15:42)
--- NOTE | 2019-02-07 15:56 | NUR ---
Started patient on ordered fluids of normal saline at 50 mL/hour.
[2019-02-07 17:00] VITALS: BP 145/101
[2019-02-07] MEDS: LIDOCAINE 5% TOPICAL PATCH TOP SCH (17:56)
--- NOTE | 2019-02-07 18:02 | NUR ---
PT ASSESSED FOR PRN TX. TX IS NOT INDICATED AT THIS TIME. PT IS AWARE TO PAGE IF TX IS NEEDED. HR 80 RR 20 POX 92% ON ROOM AIR. B/S CLEAR BUT DECREASED
--- NOTE | 2019-02-07 19:26 | NUR ---
Opening Shift Note Assumed care of patient, awake and alert. No S/S of distress/SOB or pain. Instructed on POC and to call for assist as needed. Will continue to monitor. Pt is currently laying in bed with the rails up x2, bed is locked in the lowest position and the call light is within reach. Neutropenic precautions are in place.
[2019-02-07 21:16] VITALS: BP 157/96
[2019-02-07] MEDS: ATORVASTATIN 20 MG TAB PO SCH (22:22)
[2019-02-08 05:22] VITALS: BP 158/98
[2019-02-08 05:42] VITALS: BP 158/98
--- NOTE | 2019-02-08 07:23 | NUR ---
Opening Shift Note Assumed care of patient, awake, alert, and oriented x4. No S/S of distress/SOB or pain. Port-A-Cath in left upper chest and is asymptomatic, intact, patent, and infusing normal saline at 50 mL/hour. Bed is locked and in lowest position and call light is within reach. Instructed on POC and to call for assist PRN, and patient verbalized understanding. Will continue to monitor for changes Q1hr and PRN.
--- NOTE | 2019-02-08 07:25 | NUR ---
Patient refused IV fluids; states that she does not want to be on them at this time. No pain or distress noted at this time.
[2019-02-08 07:28] LABS: Hemoglobin 9.2 g/dL (12.2-16.2)
[2019-02-08 07:32] LABS: Hematocrit 26.1 % (36.0-46.0); Mean Corpuscular Hemoglobin 32.5 pg (28.0-32.0); Mean Corpuscular Hgb Conc. 35.2 g/dL (32.0-36.0); Mean Corpuscular Volume 92.4 fL (80.0-100.0); Platelet Count (auto) 32 10^3/uL (140-450); Red Blood Cells 2.82 10^6/uL (4.0-5.20); Red Cell Distribution Width 14.3 % (11.8-14.3)
[2019-02-08 07:39] LABS: White Blood Cell 0.8 10^3/uL (4.4-10.8)
[2019-02-08 07:41] LABS: BUN/Creatinine Ratio 8.2; Basophils % (manual) 0 (0.0-2.0); Blast Cells 0; Calcium 8.6 mg/dL (8.5-10.1); Eosinophils % (manual) 0 (0-7); Metamyelocytes % 0; Myelocytes % 0; Potassium 3.1 mmol/L (3.5-5.1); Promyelocytes % 0
[2019-02-08] MEDS ORDERED: POTASSIUM CHL 20 Meq TABLET PO ONE (08:45)
[2019-02-08 09:00] VITALS: BP 143/80
[2019-02-08 09:20] LABS: Band Neutrophils % (manual) 3; Lymphocytes % (manual) 73 (10.0-50.0); Monocytes % (manual) 8 (0-12); Reactive Lymphocytes 1
[2019-02-08] MEDS: FILGRASTIM(TBO) 480 MCG/0.8 ML SYRG SC SCH (10:00)
--- NOTE | 2019-02-08 10:00 | NUR ---
Dr. Maria, Insurance Sales Manager, at bedside. New orders received.
[2019-02-08] MEDS: LEVOTHYROXINE SODIUM 100 MCG/5 ML INJ IV SCH (10:50)
[2019-02-08] MEDS: FAMOTIDINE 20 MG TAB PO SCH ×2 (10:50→21:12)
[2019-02-08] MEDS: LEVOFLOXACIN 500MG 100 ML IV SCH (10:50)
[2019-02-08] MEDS: HYDROCORTISONE SOD SUCC 100 MG/2ML INJ VIAL IV SCH ×2 (10:51→21:13)
[2019-02-08] MEDS: SODIUM CHLORIDE 0.9% 1,000 ML IV SCH (11:30)
--- NOTE | 2019-02-08 11:30 | NUR ---
Patient ambulated to the bathroom independently and had small dark brown solid bowel movement. Patient tolerated well.
--- NOTE | 2019-02-08 12:06 | NUR ---
Dr. Parish MD, at bedside. No new orders received at this time.
[2019-02-08 13:00] VITALS: BP 154/102
[2019-02-08 13:37] LABS: % Iron Saturation 46.5 % (15-50)
[2019-02-08 13:47] LABS: Ferritin 431.3 ng/mL (10-322); Folate (Folic Acid) 6.95 ng/mL (5.38-24)
--- NOTE | 2019-02-08 14:00 | NUR ---
ASSESSED PT FOR PRN MED NEB TX, PT ON RA WITH A SPO2 97%, HR 86, RR 16 WITH CLEAR/DIMINISHED BS. PT IN NO RESPIRATORY DISTRESS. PT MADE AWARE OF PRN MED NEB TX AND VERBALIZED UNDERSTANDING.
--- NOTE | 2019-02-08 14:11 | NUR ---
Estimated needs based on AJBW 54.4 kg for lung CA w/chemo Tx, increased nutrient needs 7964-6262 kcal (30-32 kcal/kg) 65-76 g protein (1.2-1.4 g/kg) Addendum: 02/08/19 at [address] Amended: Links added.
[2019-02-08 17:32] VITALS: BP 134/82
[2019-02-08] MEDS: LIDOCAINE 5% TOPICAL PATCH TOP SCH (21:12)
[2019-02-08] MEDS: ATORVASTATIN 20 MG TAB PO SCH (21:12)
[2019-02-08 21:25] VITALS: BP 163/84
--- NOTE | 2019-02-08 22:01 | NUR ---
Administered Lidocaine patch at 2150.
[2019-02-09 05:20] VITALS: BP 157/94
[2019-02-09 05:31] LABS: Hematocrit 28.7 % (36.0-46.0); Mean Corpuscular Hgb Conc. 34.7 g/dL (32.0-36.0); Mean Corpuscular Volume 92.2 fL (80.0-100.0); Platelet Count (auto) 23 10^3/uL (140-450); Red Blood Cells 3.12 10^6/uL (4.0-5.20); Red Cell Distribution Width 14.3 % (11.8-14.3)
[2019-02-09 05:34] LABS: BUN/Creatinine Ratio 7.3; Calcium 8.7 mg/dL (8.5-10.1)
[2019-02-09 05:43] LABS: White Blood Cell 0.9 10^3/uL (4.4-10.8)
[2019-02-09 05:44] LABS: Basophils % (manual) 0 (0.0-2.0); Blast Cells 0; Eosinophils % (manual) 0 (0-7); Metamyelocytes % 0; Myelocytes % 0; Promyelocytes % 0; Reactive Lymphocytes 0
[2019-02-09 06:24] LABS: Band Neutrophils % (manual) 16; Lymphocytes % (manual) 56 (10.0-50.0); Monocytes % (manual) 10 (0-12)
--- NOTE | 2019-02-09 07:40 | NUR ---
OPENING SHIFT NOTE PATIENT AWAKE ALERT AND ORIENTED X4. DENIES ANY PAIN SOB OR ANY DISTRESS AT THIS TIME.POC DISCUSSED, PATIENT STATED SHE WANTS TO GO HOME. EDUCATED PATIENT THAT MD VERBALIZED IF HER LAB VALUES ARE WITHIN NORMAL LIMITS SHE MAY BE DISCHARGED TODAY. PATIENT VERBALIZED UNDERSTANDING. BED IN LOWEST LOCKED POSITION CALL LIGHT WITHIN REACH WILL CONTINUE TO MONITOR
[2019-02-09] MEDS: FAMOTIDINE 20 MG TAB PO SCH (08:54)
[2019-02-09] MEDS: LEVOFLOXACIN 500MG 100 ML IV SCH (08:54)
[2019-02-09] MEDS: HYDROCORTISONE SOD SUCC 100 MG/2ML INJ VIAL IV SCH (08:54)
[2019-02-09] MEDS: LEVOTHYROXINE SODIUM 100 MCG/5 ML INJ IV SCH (08:54)
[2019-02-09 09:00] VITALS: BP 147/97
[2019-02-09] MEDS ORDERED: POTASSIUM CHL 20 Meq TABLET PO ONE (10:00)
[2019-02-09 10:55] VITALS: BP 147/97
--- NOTE | 2019-02-09 12:09 | NUR ---
DISCHARGE NOTE PATIENT ALERT AND ORIENTED X4 SON AT BEDSIDE. PATIENT DENIES ANY PAIN, SOB, DIZZINESS OR ANY DISTRESS AT THIS TIME. ALL DISCHARGE INSTRUCTIONS GIVEN ALL QUESTIONS CONCERNS ADDRESSED AND ANSWERED. DEACCESSED PORTICATH USING STERIL TECHNIQUE, STERIL PRESSURE DRESSING APPLIED PATIENT TOLERATED WELL. PROVIDED PATIENT WITH MASK WHILE BEING TRANSPORTED TO PERSONAL VEHICLE VIA WHEELCHAIR.
== END 2019-02-09 13:01 | disposition home or self-care (01) | DRG 643 ==
LOC: ER 22:46 → TELE 22:47 → TELE-EAST 02-05 08:39
PROVIDERS: ADMIT Nurse Practitioner; ATTEND Internal Medicine
PROC: 30233R1 Transfusion of Nonautologous Platelets into Peripheral Vein, Percutaneous Approach (ICD-10-PCS; principal; 2019-02-05)
DX: E22.2 Syndrome of inappropriate secretion of antidiuretic hormone (principal); J18.9 Pneumonia, unspecified organism; D61.818 Other pancytopenia; C78.7 Secondary malignant neoplasm of liver and intrahepatic bile duct; C34.90 Malignant neoplasm of unspecified part of unspecified bronchus or lung; E03.9 Hypothyroidism, unspecified; E11.9 Type 2 diabetes mellitus without complications; E78.5 Hyperlipidemia, unspecified; I95.9 Hypotension, unspecified; E86.0 Dehydration; E87.6 Hypokalemia; I10 Essential (primary) hypertension; Z85.118 Personal history of other malignant neoplasm of bronchus and lung; Z87.891 Personal history of nicotine dependence; Z88.0 Allergy status to penicillin; Z90.49 Acquired absence of other specified parts of digestive tract; Z88.1 Allergy status to other antibiotic agents; Z92.21 Personal history of antineoplastic chemotherapy
CPT/HCPCS: 36415; 71045; 80048; 80053; 81001; 82533; 82570; 82607; 82728; 82746; 83010; 83540; 83550; 83605; 83690; 83735; 83930; 83935; 84132; 84295; 84300; 84443; 84550; 85007; 85025; 85027; 85610; 85730; 86850; 86900; 86901; 87040; 93005; 96361; 96365; 96375; G0378; J1447; J1642; J1956; J2405; J3480; J3490

== ENCOUNTER → 2019-02-04 | Outpatient (CLI) | payer BC ==
[~2019-02-04] MED LIST changes: +ALBU1AER4; +BACL10TA; +MORP30TA5
[2019-02-04 14:01] LABS: Hemoglobin 11.8 g/dL (12.2-16.2)
[2019-02-04 14:05] LABS: Hematocrit 33.7 % (36.0-46.0); Mean Corpuscular Hemoglobin 32.2 pg (28.0-32.0); Mean Corpuscular Volume 92.1 fL (80.0-100.0); Platelet Count (auto) 24 10^3/uL (140-450); Red Blood Cells 3.66 10^6/uL (4.0-5.20); Red Cell Distribution Width 14.5 % (11.8-14.3)
[2019-02-04 14:10] LABS: Potassium 3.2 mmol/L (3.5-5.1)
[2019-02-04 14:16] LABS: Band Neutrophils % (manual) 0; Basophils % (manual) 0 (0.0-2.0); Blast Cells 0; Eosinophils % (manual) 0 (0-7); Metamyelocytes % 0; Myelocytes % 0; Promyelocytes % 0; Reactive Lymphocytes 0
[2019-02-04 14:21] LABS: Albumin 3.3 g/dL (3.4-5.0); BUN/Creatinine Ratio 10.9; Bilirubin, Total 0.6 mg/dL (0.2-1.0); Calcium 8.5 mg/dL (8.5-10.1); Total Protein 7.3 g/dL (6.4-8.2)
[2019-02-04 21:38] LABS: Lymphocytes % (manual) 98 (10.0-50.0); Monocytes % (manual) 1 (0-12)
== END | disposition home or self-care (01) ==
LOC: LAB 13:13
PROVIDERS: ATTEND Internal Medicine
DX: D86.2 Sarcoidosis of lung with sarcoidosis of lymph nodes (principal)
CPT/HCPCS: 36415; 80053; 82607; 83615; 84443; 85007; 85027

== ENCOUNTER 2019-02-11 02:47 | Inpatient (IN) | payer BC, MEDICARE ==
[~2019-02-11] VITALS: Ht 157.5 cm; Wt 64.0 kg
[~2019-02-11 02:47] MED LIST changes: +ALBU1AER4; -ALBU1AER4 IN; +BACL10TA; +MORP-74
[2019-02-11] MEDS ORDERED: HYDROmorphone HCL 2 MG/ML VL IV ONE (03:45)
[2019-02-11] MEDS ORDERED: ONDANSETRON HCL 4 MG/2 ML VIAL IV ONE (03:45)
[2019-02-11] MEDS ORDERED: SODIUM CHLORIDE 0.9% 1,000 ML IV ONE (03:45)
[2019-02-11 04:11] LABS: White Blood Cell 4.2 10^3/uL (4.4-10.8)
[2019-02-11 04:13] LABS: Mean Corpuscular Hgb Conc. 34.7 g/dL (32.0-36.0); Mean Corpuscular Volume 92.2 fL (80.0-100.0); Platelet Count (auto) 23 10^3/uL (140-450); Red Blood Cells 3.14 10^6/uL (4.0-5.20); Red Cell Distribution Width 14.2 % (11.8-14.3)
[2019-02-11 04:22] LABS: Albumin 3.3 g/dL (3.4-5.0); Calcium 8.1 mg/dL (8.5-10.1)
[2019-02-11 04:25] LABS: BUN/Creatinine Ratio 21.8; Bilirubin, Total 0.7 mg/dL (0.2-1.0); Total Protein 7.2 g/dL (6.4-8.2)
[2019-02-11 04:36] LABS: Potassium 2.8 mmol/L (3.5-5.1)
[2019-02-11 04:39] LABS: Basophils % (manual) 0 (0.0-2.0); Blast Cells 0; Eosinophils % (manual) 0 (0-7); INR 1.16 (0.9-1.15); Metamyelocytes % 0; Myelocytes % 0; Partial Thromboplastin Time 30.2 sec (23.64-32.05); Promyelocytes % 0; Reactive Lymphocytes 0
[2019-02-11] MEDS ORDERED: POTASSIUM CHL 20MEQ/100ML 100 ML IV ONE ×2 (04:45→09:30)
[2019-02-11] MEDS ORDERED: LORazepam 2MG/ML-1ML VIAL IV ONE (05:00)
[2019-02-11] MEDS ORDERED: SODIUM CHL 3% 500 ML IV ONE ×2 (05:45→06:45)
[2019-02-11] MEDS ORDERED: HYDROCORTISONE SOD SUCC 100 MG/2ML INJ VIAL IV ONE (06:00)
[2019-02-11 06:39] LABS: Band Neutrophils % (manual) 11; Lymphocytes % (manual) 58 (10.0-50.0); Monocytes % (manual) 12 (0-12)
[2019-02-11] MEDS ORDERED: HYDROcodone-ACET 5/325MG TAB PO PRN (06:45)
[2019-02-11] MEDS ORDERED: ALBUTEROL SULF 2.5 MG/0.5ML(0.5%) NEB SOLN NEB PRN (06:45)
[2019-02-11] MEDS ORDERED: cloNIDine HCL 0.1 MG TAB PO PRN (06:45)
[2019-02-11] MEDS ORDERED: ACETAMINOPHEN 325 MG TAB PO PRN (06:45)
[2019-02-11] MEDS ORDERED: LEVOTHYROXINE SODIUM 25 MCG TAB PO SCH (07:00)
--- NOTE | 2019-02-11 07:35 | NUR ---
Respiratory note: ROUTINE PRN MN TX. HR 73, RR 17, POX 99% ON 2L/M NC, BREATH SOUNDS ARE CLEAR/DIMINISHED. NO SOB OR DISTRESS NOTED. PT WAS NOTIFY TO HAVE RT PAGE FOR MN TX.
[2019-02-11] MEDS: MORPHINE SULFATE 4 MG/ML SYR/VIAL IV PRN ×4 (08:21→22:24)
[2019-02-11] MEDS ORDERED: POTASSIUM CHL 20 Meq TABLET PO ONE ×2 (09:30→15:30)
[2019-02-11] MEDS: LISINOPRIL 20 MG TAB PO SCH (09:46)
[2019-02-11] MEDS: FAMOTIDINE 20 MG TAB PO SCH ×2 (09:46→21:45)
[2019-02-11] MEDS: FILGRASTIM (TBO) 300 MCG/0.5 ML SYRG SC SCH (09:49)
[2019-02-11 09:51] VITALS: BP 142/91
[2019-02-11 10:07] LABS: BUN/Creatinine Ratio 16.1; Calcium 8.1 mg/dL (8.5-10.1); Magnesium 1.8 mg/dL (1.6-2.6); Potassium 3.4 mmol/L (3.5-5.1)
[2019-02-11] MEDS: LEVOFLOXACIN 500MG 100 ML IV SCH (10:07)
[2019-02-11] MEDS ORDERED: ONDANSETRON HCL 4 MG/2 ML VIAL ONE (10:14)
[2019-02-11] MEDS ORDERED: ONDANSETRON HCL 4 MG/2 ML VIAL IV PRN (10:15)
[2019-02-11] MEDS ORDERED: POTASSIUM EFFERVESENT TAB 25 MEQ PO ONE (10:30)
[2019-02-11] MEDS: MAGNESIUM SULFATE 1GM/100ML 100 ML IV SCH ×4 (11:25→16:59)
[2019-02-11] MEDS ORDERED: traMADol HCL 50 MG TAB PO PRN (12:00)
[2019-02-11] MEDS ORDERED: SCOPOLAMINE 1.5 MG TOP SCH (12:00)
[2019-02-11] MEDS ORDERED: METOCLOPRAMIDE HCL 5MG/ml INJ 2ml VIAL IV PRN (12:00)
[2019-02-11] MEDS: SCOPOLAMINE 1.5 MG TD SCH (14:45)
[2019-02-11 14:58] LABS: Urine Bacteria FEW /hpf (None Seen); Urine Blood 1+ /uL (Negative); Urine Mucus FEW (None Seen); Urine Specific Gravity 1.012 (1.001-1.035); Urine WBC 1 /hpf (0 - 5)
[2019-02-11] MEDS: LIDOCAINE 5% TOPICAL PATCH TOP SCH (16:56)
[2019-02-11 17:45] VITALS: BP 124/74
[2019-02-11 20:00] VITALS: BP 133/86
--- NOTE | 2019-02-11 20:00 | NUR ---
OPENING SHIFT NOTE: PATIENT IS AO X4. SHE IS AMBULATORY WITH ASSIST BUT ABLE TO TRANSFER BY HERSELF. SHE IS ON 2L NASAL CANULA. SHE HAS COMPLAINTS OF MILD PAIN IN HER LEFT RIB CAGE AND MINIMAL IN HER BACK IN WHICH THE LIDOCAINE PATCH SHE REPORTS HAS HELPED GREATLY. BED IS LOCKED IN LOWEST POSITION WITH SIDE RAILS UP X2. SHE IS AWARE OF HER PLAN OF CARE. CALL LIGHT IS WITHIN REACH. WILL CONTINUE TO MONITOR.
[2019-02-11 21:43] VITALS: BP 133/86
[2019-02-11] MEDS: ATORVASTATIN 20 MG TAB PO SCH (21:44)
[2019-02-11] MEDS: SODIUM CHLORIDE 0.9% 1,000 ML IV SCH (22:07)
--- NOTE | 2019-02-11 22:29 | NUR ---
Respiratory note: PT SEEN AND ASSESSED FOR PRN MED NEB TX AT 2229. TX NOT INDICATED AT THIS TIME. PT DENIES ANY RESPIRATORY DISTRESS AT THIS TIME AND JUST STATES THAT SHE IS IN PAIN. BREATH SOUNDS WERE CLEAR AND DIMINISHED BILATERALLY. HR 82 RR 22 POX 94% ON 2L NASAL CANNULA. PT AWARE TO CALL FOR RT IF ANY DISTRESS OCCURS.
[2019-02-12] MEDS: HYDROCORTISONE SOD SUCC 100 MG/2ML INJ VIAL IV SCH ×2 (06:00→20:30)
[2019-02-12] MEDS ORDERED: HYDROCORTISONE SOD SUCC 100 MG/2ML INJ VIAL IV ONE (06:00)
--- NOTE | 2019-02-12 06:30 | NUR ---
Respiratory note: PT WAS AWAKE AND ALERT. NO RESPIRATORY DISTRESS NOTED. SPO2 98% ON 2L NC, HR 82, RR 18, BS CLEAR T/O. PRN MEDNEB TX NOT INDICATED AT THIS TIME. PT INFORMED TO PUSH CALL BUTTON IF INCREASED WOB, SOB, OR WHEEZING OCCURS.
[2019-02-12 08:06] LABS: Potassium 4.4 mmol/L (3.5-5.1)
[2019-02-12 08:14] LABS: Basophils # (auto) 0 uL; Eosinophils # (auto) 0 uL; Eosinophils % (auto) 0.1 % (0.0-7.0); Mean Corpuscular Hgb Conc. 34.6 g/dL (32.0-36.0); Neutrophils # (auto) 5.2 uL; Red Cell Distribution Width 14.4 % (11.8-14.3)
[2019-02-12 08:17] LABS: Albumin 2.7 g/dL (3.4-5.0); Basophils % (auto) 0.1 % (0.0-2.0); Bilirubin, Total 0.4 mg/dL (0.2-1.0); Calcium 7.9 mg/dL (8.5-10.1); Hematocrit 27.3 % (36.0-46.0); Hemoglobin 9.4 g/dL (12.2-16.2); Lymphocytes # (auto) 0.7 uL; Lymphocytes % (auto) 10.2 % (10.0-50.0); Mean Corpuscular Volume 92.4 fL (80.0-100.0); Monocytes % (auto) 14.6 % (0.0-12.0); Platelet Count (auto) 22 10^3/uL (140-450); Red Blood Cells 2.95 10^6/uL (4.0-5.20); Total Protein 6.6 g/dL (6.4-8.2); White Blood Cell 6.9 10^3/uL (4.4-10.8)
[2019-02-12 09:00] VITALS: BP 144/88
[2019-02-12] MEDS: FAMOTIDINE 20 MG TAB PO SCH ×2 (09:17→22:10)
[2019-02-12] MEDS: LISINOPRIL 20 MG TAB PO SCH (09:18)
[2019-02-12] MEDS: LEVOFLOXACIN 500MG 100 ML IV SCH (09:18)
[2019-02-12] MEDS: FILGRASTIM (TBO) 300 MCG/0.5 ML SYRG SC SCH (10:00)
[2019-02-12 13:00] VITALS: BP 126/72
[2019-02-12] MEDS: SODIUM CHLORIDE 0.9% 1,000 ML IV SCH (14:38)
[2019-02-12] MEDS: LIDOCAINE 5% TOPICAL PATCH TOP SCH (16:06)
[2019-02-12 17:00] VITALS: BP 116/70
--- NOTE | 2019-02-12 19:19 | NUR ---
RT NOTE: PT ASSESSED FOR PRN MED NEB TX, PT DENIES SOB AND ON ROOM AIR, SPO2 94% HR 102, RR 18. BS CLEAR. PT NOTIFIED TO HAVE RT PAGED IF SOB OCCURS. CALL LIGHT WITHIN REACH. NO TX GIVEN
[2019-02-12 22:00] VITALS: BP 128/68
[2019-02-12] MEDS: ATORVASTATIN 20 MG TAB PO SCH ×2 (22:00→22:10)
[2019-02-13] MEDS: TEMAZEPAM 15 MG CAP PO PRN ×2 (00:04→21:34)
[2019-02-13 05:45] VITALS: BP 135/77
[2019-02-13] MEDS: HYDROCORTISONE SOD SUCC 100 MG/2ML INJ VIAL IV SCH (06:28)
[2019-02-13] MEDS: LEVOTHYROXINE SODIUM 50 MCG TAB PO SCH (06:29)
[2019-02-13 07:38] LABS: Basophils # (auto) 0 uL; Basophils % (auto) 0.2 % (0.0-2.0); Eosinophils # (auto) 0 uL; Hematocrit 22.3 % (36.0-46.0); Hemoglobin 7.8 g/dL (12.2-16.2); Lymphocytes # (auto) 1.6 uL; Red Cell Distribution Width 14.1 % (11.8-14.3)
[2019-02-13 07:40] LABS: Lymphocytes % (auto) 20.4 % (10.0-50.0); Mean Corpuscular Hemoglobin 31.9 pg (28.0-32.0); Mean Corpuscular Hgb Conc. 34.8 g/dL (32.0-36.0); Mean Corpuscular Volume 91.6 fL (80.0-100.0); Monocytes % (auto) 12.3 % (0.0-12.0); Neutrophils # (auto) 5.2 uL; Neutrophils % (auto) 67.1 % (37.0-80.0); Platelet Count (auto) 25 10^3/uL (140-450); Red Blood Cells 2.44 10^6/uL (4.0-5.20); White Blood Cell 7.7 10^3/uL (4.4-10.8)
[2019-02-13] MEDS: SODIUM CHLORIDE 0.9% 1,000 ML IV SCH (07:54)
[2019-02-13 08:08] LABS: Potassium 3.6 mmol/L (3.5-5.1)
[2019-02-13 08:16] LABS: BUN/Creatinine Ratio 13.5; Calcium 7.8 mg/dL (8.5-10.1); Magnesium 2.3 mg/dL (1.6-2.6)
--- NOTE | 2019-02-13 08:44 | NUR ---
Respiratory note: ASSESSED PT FOR PRN TX PT WAS AWAKE AND ALERT, NO RESP DISTRESS NOTED. HR 92, RR 18, SPO2 94% ON ROOM AIR, BS ARE DIMINISHED. PT KNOWS TO HAVE RT PAGED IF TX IS NEEDED.
[2019-02-13 08:52] VITALS: BP 150/78
[2019-02-13] MEDS: FAMOTIDINE 20 MG TAB PO SCH ×2 (08:54→21:33)
[2019-02-13] MEDS: LISINOPRIL 20 MG TAB PO SCH (08:56)
[2019-02-13] MEDS: LEVOFLOXACIN 500MG 100 ML IV SCH (08:59)
--- NOTE | 2019-02-13 09:00 | NUR ---
0735 :patient upset and crying, informed this life insurance underwriter that somebody from housekeeping came late last night, just after 11 pm, "turned on the light, checked the trash and restroom and slammed the door not turning off the light, I can't get to the light and I have to call and call." Assured patient will try not to let that incident happen again. 0845: spoke to building services supervisor, he said he will see atient later. patient made aware.
[2019-02-13] MEDS ORDERED: SENNA 8.6 MG TAB PO ONE (12:15)
[2019-02-13] MEDS: FILGRASTIM (TBO) 300 MCG/0.5 ML SYRG SC SCH (12:39)
[2019-02-13 13:00] VITALS: BP 154/97
[2019-02-13] MEDS: LIDOCAINE 5% TOPICAL PATCH TOP SCH (16:35)
[2019-02-13 16:58] VITALS: BP 152/88
--- NOTE | 2019-02-13 18:42 | NUR ---
stable. wants sleeping pill tonight at 9pm. will endorse to next shift. Hgb 7.8 no order for transfusion.
--- NOTE | 2019-02-13 18:53 | NUR ---
PT ASSESSED FOR PRN MED NEB TX. SPO2 95% ON RA, HR 89. PT DENIES ANY RESPIRATORY DISTRESS. NO TX INDICATED. PT IS AWARE TO HAVE RT PAGED IF TX NEEDED.
--- NOTE | 2019-02-13 19:30 | NUR ---
Opening Shift Note Assumed care of patient, awake and alert. No S/S of distress/SOB or pain noted. Bed is in lowest locked position with bed rails up x2 and call light is within reach of the patient. Instructed on POC and to call for assist PRN.
[2019-02-13] MEDS: SENNA 8.6 MG TAB PO SCH (21:33)
[2019-02-13] MEDS: ATORVASTATIN 20 MG TAB PO SCH (21:34)
[2019-02-13 22:00] VITALS: BP 155/94
[2019-02-14 05:24] VITALS: BP 150/90
[2019-02-14 06:17] LABS: Calcium 8.2 mg/dL (8.5-10.1); Magnesium 2.1 mg/dL (1.6-2.6)
[2019-02-14 06:19] LABS: BUN/Creatinine Ratio 10.3
--- NOTE | 2019-02-14 06:26 | NUR ---
CRITICAL LAB: RECEIVED CALL ABOUT PATIENTS CRITICAL LAB LEVEL. POTASSIUM OS 2.9. TO PAGE HOSPITALIST.
[2019-02-14 06:27] LABS: Potassium 2.9 mmol/L (3.5-5.1)
--- NOTE | 2019-02-14 06:28 | NUR ---
HOSPITALIST PAGED: HOSPITALIST PAGED REGARDING CRITICAL POTASSIUM LEVEL. WAITING FOR CALL BACK.
[2019-02-14] MEDS ORDERED: POTASSIUM CHL 20 Meq TABLET PO ONE ×2 (06:45→08:15)
--- NOTE | 2019-02-14 06:45 | NUR ---
HOSPITALIST CALLED BACK: HOSPITALIST BENNY CALLED BACK. ORDERED 20 FLORIAN OF POTASSIUM PO. TO PLACE AND CARRY OUT ORDERS.
[2019-02-14] MEDS: LEVOTHYROXINE SODIUM 50 MCG TAB PO SCH (07:02)
--- NOTE | 2019-02-14 07:50 | NUR ---
PATIENT ROUNDS PATIENT IN BED, NO DISTRESS NOTED, BED IN LOWEST POSITION SIDE RAIL UP X2, CALL LIGHT WITHIN REACH. ALL QUESTIONS AND CONCERNS ADDRESSED, ELBA CLARK ASSISTING IN POC. WILL CONTINUE TO MONITOR AND INITIATE PLAN OF CARE.
[2019-02-14 08:12] LABS: Basophils # (auto) 0.1 uL; Eosinophils # (auto) 0 uL; Hematocrit 23.7 % (36.0-46.0); Hemoglobin 8.2 g/dL (12.2-16.2); Mean Corpuscular Hgb Conc. 34.7 g/dL (32.0-36.0); Monocytes # (auto) 1.1 uL; Platelet Count (auto) 37 10^3/uL (140-450)
[2019-02-14 08:15] LABS: Basophils % (auto) 0.4 % (0.0-2.0); Lymphocytes # (auto) 2.5 uL; Lymphocytes % (auto) 17.3 % (10.0-50.0); Mean Corpuscular Volume 92.3 fL (80.0-100.0); Monocytes % (auto) 7.5 % (0.0-12.0); Neutrophils # (auto) 10.9 uL; Neutrophils % (auto) 74.8 % (37.0-80.0); Red Blood Cells 2.57 10^6/uL (4.0-5.20); Red Cell Distribution Width 13.9 % (11.8-14.3); White Blood Cell 14.6 10^3/uL (4.4-10.8)
[2019-02-14 08:19] VITALS: BP 140/98
[2019-02-14] MEDS ORDERED: POTASSIUM CHLORIDE 40 MEQ, LIDOCAINE 1% (LOCAL ANESTH.) 4 ML in SODIUM CHL 0.9% 100 ML IV ONE (08:30)
--- NOTE | 2019-02-14 09:00 | NUR ---
POTASSIUM NEW ORDER PLACED BY DR HUTCHISON, I INFORMED HIM PATIENT WAS COVERED WITH 20mEq POTASSIUM PO AT 07:00 BY HAND INSERTER OPERATOR RN, PER DR HUTCHISON HE STILL WANTS ANOTHER 40mEq PO AND 40mEq IV TO BE GIVEN.
[2019-02-14] MEDS ORDERED: HYDROCORTISONE 10 MG TAB PO SCH (10:00)
[2019-02-14 10:11] VITALS: BP 140/98
[2019-02-14] MEDS: HYDROCORTISONE 10 MG TAB PO SCH (10:30)
[2019-02-14] MEDS: POLYETHYLENE GLYCOL 17 GM PWDR PO SCH (10:50)
[2019-02-14] MEDS: LEVOFLOXACIN 500MG 100 ML IV SCH (10:50)
[2019-02-14] MEDS: FAMOTIDINE 20 MG TAB PO SCH ×2 (10:50→22:07)
[2019-02-14] MEDS: LISINOPRIL 20 MG TAB PO SCH (10:51)
[2019-02-14] MEDS: FILGRASTIM (TBO) 300 MCG/0.5 ML SYRG SC SCH (10:52)
--- NOTE | 2019-02-14 10:59 | NUR ---
ORDER OBTAINED TO JONI CISNEROS BY DR HUTCHISON
[2019-02-14 13:00] VITALS: BP 134/89
[2019-02-14] MEDS: SCOPOLAMINE 1.5 MG TD SCH (14:45)
--- NOTE | 2019-02-14 15:00 | NUR ---
Estimated needs based on CBW 53.5 kg-increased factors for increased metabolic demands 2841-5376 kcal (30-35 kcal/kg) 64-80 g protein (1.2-1.5 g/kg) Addendum: 02/14/19 at [address] Amended: Links added.
--- NOTE | 2019-02-14 16:10 | NUR ---
PHARMACY CALLED PHARMACY AND ASKED IF THE HAVE SCOPOLAMINE IN STOCK, PER PHARMACIST THEY DO NOT CARRY THIS MEDICATION, WILL INFORM MOTORCY[employer] POLICE TO TELL IN AM. Addendum: 02/14/19 at 1616 by Melvi Norton RN WRONG PATIENT. CANCEL NOTE. Addendum: 02/14/19 at 1619 by Melvi Norton RN CANCEL AMENDMENT, THIS IS A CORRECT NOT FOR THIS PATIENT REGARDING MEDICATION AVAILABILITY.
[2019-02-14 16:34] VITALS: BP 136/95
[2019-02-14] MEDS: LIDOCAINE 5% TOPICAL PATCH TOP SCH (16:47)
[2019-02-14] MEDS: FLUDROCORTISONE ACETATE 0.1 MG TAB PO SCH (17:38)
--- NOTE | 2019-02-14 18:48 | NUR ---
PRN MED NEB ASSESSMENT PT DENIES SOB. NO DISTRESS NOTED AT THIS TIME. RA POX 94% HR 68 RR 18 TX NOT GIVEN.
[2019-02-14 21:32] VITALS: BP 140/83
[2019-02-14] MEDS: SENNA 8.6 MG TAB PO SCH (22:00)
[2019-02-14] MEDS: ATORVASTATIN 20 MG TAB PO SCH (22:00)
[2019-02-14] MEDS: TEMAZEPAM 15 MG CAP PO PRN (22:07)
[2019-02-15 05:26] VITALS: BP 143/66
[2019-02-15] MEDS: LEVOTHYROXINE SODIUM 50 MCG TAB PO SCH (06:19)
--- NOTE | 2019-02-15 07:05 | NUR ---
Opening Shift Note Assumed care of patient, awake and alert. No S/S of distress/SOB or pain. Bed in lowest position with call light within reach. Agueda cath in place and patent. Instructed on POC and to call for assist PRN, will continue to monitor for changes.
[2019-02-15 07:24] LABS: BUN/Creatinine Ratio 12.3; Calcium 8.1 mg/dL (8.5-10.1); Potassium 3.4 mmol/L (3.5-5.1)
[2019-02-15] MEDS: LEVOFLOXACIN 500MG 100 ML IV SCH (08:45)
[2019-02-15] MEDS: FAMOTIDINE 20 MG TAB PO SCH ×2 (08:45→21:11)
[2019-02-15] MEDS: FLUDROCORTISONE ACETATE 0.1 MG TAB PO SCH (08:46)
[2019-02-15] MEDS: LISINOPRIL 20 MG TAB PO SCH (08:46)
[2019-02-15] MEDS: POLYETHYLENE GLYCOL 17 GM PWDR PO SCH (08:47)
[2019-02-15] MEDS: HYDROCORTISONE 10 MG TAB PO SCH ×3 (08:47→17:05)
[2019-02-15 08:53] VITALS: BP 137/90
[2019-02-15] MEDS ORDERED: POTASSIUM EFFERVESENT TAB 25 MEQ GT ONE (09:45)
[2019-02-15] MEDS ORDERED: POTASSIUM CHL 20 Meq TABLET PO ONE (11:15)
[2019-02-15 12:27] VITALS: BP 133/81
--- NOTE | 2019-02-15 14:10 | NUR ---
Respiratory note: PT ASSESSED FOR PRN MEDNEB TX. TX NOT INDICATED AT THIS. SPO2 94% ON RA HR 94 RR 16 B/S DIMINISHED. PT AWARE TO HAVE RT PAGED IF THEY BECOME SOB.
[2019-02-15 17:00] VITALS: BP 141/89
[2019-02-15] MEDS: LIDOCAINE 5% TOPICAL PATCH TOP SCH (17:04)
--- NOTE | 2019-02-15 18:42 | NUR ---
PT ASSESSED, MN TX NOT INDICATED AT THIS TIME. BS CLEAR/DIMINISHED.
--- NOTE | 2019-02-15 18:55 | NUR ---
Patient sitting up in bed with no s/s of distress noted. Agueda cath properly in place and patent. Bed in lowest position with call light within reach. Will endorse to maintenance supervisor 2nd shift.
--- NOTE | 2019-02-15 19:30 | NUR ---
Opening Shift Note Assumed care of patient, awake and alert. No S/S of distress/SOB or pain. Instructed on POC and to call for assist PRN, will continue to monitor for changes Q1hr and PRN. Patient sitting on bed. Denies pain. Bed in low position. Call vergara with in reach.
--- NOTE | 2019-02-15 20:00 | NUR ---
Rounds made, patient sleeping.
--- NOTE | 2019-02-15 21:00 | NUR ---
checked patient still asleep.
--- NOTE | 2019-02-15 21:10 | NUR ---
Patient's light on, checked on patient. Denies pain. B/P 141/94, 94% on room air, HR 84. Patient said " I don't feel good", asked if in pain patient said no. No SOB noted. Denies chest pain. Reassured and informed patient if she needs help to call.
[2019-02-15] MEDS: SENNA 8.6 MG TAB PO SCH (21:11)
[2019-02-15] MEDS: ATORVASTATIN 20 MG TAB PO SCH (21:12)
[2019-02-15] MEDS: TEMAZEPAM 15 MG CAP PO PRN (21:15)
[2019-02-15 22:00] VITALS: BP 120/83
[2019-02-16 05:00] VITALS: BP 128/73
[2019-02-16 05:43] LABS: Hematocrit 25.5 % (36.0-46.0); Hemoglobin 8.8 g/dL (12.2-16.2); Mean Corpuscular Hemoglobin 31.9 pg (28.0-32.0); Mean Corpuscular Hgb Conc. 34.7 g/dL (32.0-36.0); Platelet Count (auto) 71 10^3/uL (140-450); Red Blood Cells 2.77 10^6/uL (4.0-5.20); Red Cell Distribution Width 14.5 % (11.8-14.3); White Blood Cell 10.5 10^3/uL (4.4-10.8)
[2019-02-16 05:53] LABS: Basophils % (manual) 0 (0.0-2.0); Blast Cells 0; Eosinophils % (manual) 0 (0-7); Metamyelocytes % 0; Myelocytes % 0; Promyelocytes % 0; Reactive Lymphocytes 0
[2019-02-16 05:55] LABS: Calcium 8.3 mg/dL (8.5-10.1); Potassium 3.5 mmol/L (3.5-5.1)
[2019-02-16 05:57] LABS: BUN/Creatinine Ratio 13.3
[2019-02-16] MEDS: LEVOTHYROXINE SODIUM 50 MCG TAB PO SCH (06:21)
[2019-02-16 06:34] LABS: Band Neutrophils % (manual) 2; Lymphocytes % (manual) 21 (10.0-50.0); Monocytes % (manual) 17 (0-12)
--- NOTE | 2019-02-16 08:00 | NUR ---
OPENING SHIFT NOTE ASSUMED CARE OF PT. PT AWAKE AND ALERT. NO SOB OR SIGNS OF DISTRESS NOTED. INSTRUCTED ON POC AND TO CALL FOR ASSISTANCE PRN. RK IN LOWEST POSITION WITH SIDE RAILS UP X2. WILL CONTINUE TO MONITOR.
--- NOTE | 2019-02-16 08:51 | NUR ---
Respiratory note: NO PRN TX NEEDED AT THIS TIME PATIENT ON ROOM AIR POX 97%, 75 HR, PATIENT IS AWARE TO CALL LIGHT BUTTON IF SHE FEELS SOB TO RECEIVE A TX.
[2019-02-16 09:00] VITALS: BP 163/87
[2019-02-16] MEDS ORDERED: POTASSIUM CHL 20 Meq TABLET PO ONE (09:15)
[2019-02-16] MEDS: HYDROCORTISONE 10 MG TAB PO SCH ×2 (09:36→17:30)
[2019-02-16] MEDS: LEVOFLOXACIN 500MG 100 ML IV SCH (09:38)
[2019-02-16] MEDS: FAMOTIDINE 20 MG TAB PO SCH ×2 (09:38→20:02)
[2019-02-16] MEDS: LISINOPRIL 20 MG TAB PO SCH (09:39)
[2019-02-16] MEDS: POLYETHYLENE GLYCOL 17 GM PWDR PO SCH (10:00)
[2019-02-16 13:00] VITALS: BP 135/63
[2019-02-16] MEDS ORDERED: SCOPOLAMINE 1.5 MG TD SCH (13:15)
--- NOTE | 2019-02-16 15:58 | NUR ---
Nutrition Follow-up Notes Wt. 64 kg Pt. endorses fair appetite and better tolerance to current diet with documented PO intake 50-100% x 2 days. No reports of N/V today; noted with GI function improvement since previous assessment. Pt. requesting for clear liquid supplement, as she does not like milky nutrition shakes, as they make her nauseated when consumed. Est. Needs (Based on previous assessment): Calories/Kcals/Kg 30-35 (AJBW 53.5 kg) Kcals Calculated 9866-9912 Protein: Adj wt of IBW Proteing/K.2-1.5 Protein Calculated 64-80 Labs: Glu 69L, Ca 8.3L, others WNL Skin: Maximilian 22, low risk GI: BM x 1 yesterday 02/15 PES: Increased nutrient needs r/t altered metabolic demands aeb pt. noted with Hx lung CA with Chemo Tx and reported PO intake meeting <75% estimated needs (ongoing) Altered nutrition related lab values r/t acute and chronic medical conditions aeb hypoalb (ongoing) Plan of care: Monitor weight trends, labs, skin integrity, PO intake/tolerance, GI function. F/U HR 2-3 days. Recommendations: 1) Consider liberalization of diet to regular diet to allow for pt.'s food preferences (will provide as able) 2) Consider adding Ensure Clear TID per pt. request. Addendum: 02/16/19 at [address] Addendum Correction on F/U date. F/U MR 3-5 days.
[2019-02-16 17:00] VITALS: BP 140/78
[2019-02-16] MEDS: LIDOCAINE 5% TOPICAL PATCH TOP SCH (17:30)
--- NOTE | 2019-02-16 18:25 | NUR ---
RT NOTE: PT ASSESSED FOR PRN MED NEB TX, PT DENIES SOB EXCEPT ON EXERTION. PT ON ROOM AIR SPO2 97% HR 71, RR 16. BS CLEAR. NO DISTRESS NOTED AT THIS TIME. PT NOTIFIED TO HAVE RT PAGED IF SOB OCCURS. CALL LIGHT WITHIN REACH.
[2019-02-16] MEDS: TEMAZEPAM 15 MG CAP PO PRN (20:02)
[2019-02-16] MEDS: SENNA 8.6 MG TAB PO SCH (20:02)
[2019-02-16] MEDS: ATORVASTATIN 20 MG TAB PO SCH (20:03)
[2019-02-16 22:00] VITALS: BP 123/65
[2019-02-17 05:00] VITALS: BP 114/66
[2019-02-17] MEDS: LEVOTHYROXINE SODIUM 50 MCG TAB PO SCH (06:11)
[2019-02-17 07:18] LABS: Hematocrit 26.1 % (36.0-46.0); Mean Corpuscular Hemoglobin 31.8 pg (28.0-32.0); Mean Corpuscular Hgb Conc. 34.4 g/dL (32.0-36.0); Mean Corpuscular Volume 92.5 fL (80.0-100.0); Platelet Count (auto) 92 10^3/uL (140-450); Red Blood Cells 2.82 10^6/uL (4.0-5.20); Red Cell Distribution Width 14.5 % (11.8-14.3); White Blood Cell 5.5 10^3/uL (4.4-10.8)
[2019-02-17 07:34] LABS: Potassium 3.4 mmol/L (3.5-5.1)
[2019-02-17 07:38] LABS: BUN/Creatinine Ratio 14.5; Calcium 8.3 mg/dL (8.5-10.1)
[2019-02-17 07:42] LABS: Basophils % (manual) 0 (0.0-2.0); Blast Cells 0; Eosinophils % (manual) 0 (0-7); Metamyelocytes % 0; Myelocytes % 0; Promyelocytes % 0; Reactive Lymphocytes 0
--- NOTE | 2019-02-17 07:50 | NUR ---
OPENING SHIFT NOTE ASSUMED CARE OF PATIENT. PATIENT IS AWAKE AND ALERT. NO SOB OR SIGNS OF DISTRESS NOTED. INSTRUCTED ON POC AND TO CALL FOR ASSISTANCE PRN. BED IS IN LOWEST POSITION WITH SIDE RAILS UP X2. WILL CONTINUE TO MONITOR Q1HR.
[2019-02-17 08:35] VITALS: BP 131/88
[2019-02-17 08:46] LABS: Band Neutrophils % (manual) 2; Lymphocytes % (manual) 53 (10.0-50.0); Monocytes % (manual) 18 (0-12)
[2019-02-17] MEDS: POLYETHYLENE GLYCOL 17 GM PWDR PO SCH (09:29)
[2019-02-17] MEDS: LEVOFLOXACIN 500MG 100 ML IV SCH (09:29)
[2019-02-17] MEDS: HYDROCORTISONE 10 MG TAB PO SCH ×2 (09:33→17:39)
[2019-02-17] MEDS: FAMOTIDINE 20 MG TAB PO SCH ×2 (09:33→20:25)
[2019-02-17] MEDS: LISINOPRIL 20 MG TAB PO SCH (09:34)
--- NOTE | 2019-02-17 09:45 | NUR ---
DOCTOR AT BEDSIDE DOCTOR SPOKE TO PATIENT AND PLACED ORDERS. WILL CARRY OUT.
--- NOTE | 2019-02-17 09:57 | NUR ---
RT NOTE: WENT TO PTS ROOM TO ASSESS FOR PRN BREATHING TX, PT SITTING UP IN BED. PT STATED NO SOB. NO INDICATION FOR TX AT THIS TIME. HR 83, RR 16, SPO2 97% ON RA. WILL CONTINUE TO MONITOR PT.
[2019-02-17 11:20] VITALS: BP 131/88
[2019-02-17 12:57] VITALS: BP 127/78
[2019-02-17 17:00] VITALS: BP 138/81
[2019-02-17] MEDS: LIDOCAINE 5% TOPICAL PATCH TOP SCH (17:38)
[2019-02-17] MEDS: SENNA 8.6 MG TAB PO SCH (20:25)
[2019-02-17] MEDS: TEMAZEPAM 15 MG CAP PO PRN (20:25)
[2019-02-17 22:00] VITALS: BP 138/88
[2019-02-17] MEDS: ATORVASTATIN 20 MG TAB PO SCH (22:00)
[2019-02-18 03:37] VITALS: BP 121/86
[2019-02-18] MEDS: LEVOTHYROXINE SODIUM 50 MCG TAB PO SCH (06:48)
[2019-02-18 06:51] LABS: Hematocrit 27.7 % (36.0-46.0); Hemoglobin 9.6 g/dL (12.2-16.2); Mean Corpuscular Hemoglobin 32.1 pg (28.0-32.0); Mean Corpuscular Hgb Conc. 34.6 g/dL (32.0-36.0); Mean Corpuscular Volume 92.8 fL (80.0-100.0); Platelet Count (auto) 122 10^3/uL (140-450); Red Blood Cells 2.99 10^6/uL (4.0-5.20); Red Cell Distribution Width 14.9 % (11.8-14.3); White Blood Cell 5.8 10^3/uL (4.4-10.8)
[2019-02-18 07:01] LABS: Band Neutrophils % (manual) 0; Basophils % (manual) 0 (0.0-2.0); Blast Cells 0; Eosinophils % (manual) 0 (0-7); Metamyelocytes % 0; Myelocytes % 0; Promyelocytes % 0; Reactive Lymphocytes 0
[2019-02-18 07:05] LABS: Albumin 3.1 g/dL (3.4-5.0); Calcium 8.1 mg/dL (8.5-10.1); Potassium 3.6 mmol/L (3.5-5.1)
[2019-02-18 07:10] LABS: Bilirubin, Total 0.3 mg/dL (0.2-1.0); Total Protein 6.6 g/dL (6.4-8.2)
--- NOTE | 2019-02-18 08:42 | NUR ---
Respiratory note: ROUTINE PRN MN TX CHECK. HR 94, RR16, POX 95% ON RA, BREATH SOUNDS ARE CLEAR. NO SOB OR DISTRESS NOTED. PT WAS NOTIFY TO HAVE RT PAGE RT FOR MN TX IF NEEDED.
[2019-02-18 09:00] VITALS: BP 131/90
[2019-02-18] MEDS: LISINOPRIL 20 MG TAB PO SCH (09:09)
[2019-02-18] MEDS: FAMOTIDINE 20 MG TAB PO SCH (09:09)
[2019-02-18] MEDS: LEVOFLOXACIN 500MG 100 ML IV SCH (09:09)
[2019-02-18] MEDS: HYDROCORTISONE 10 MG TAB PO SCH (09:10)
[2019-02-18] MEDS: POLYETHYLENE GLYCOL 17 GM PWDR PO SCH (09:11)
[2019-02-18 09:16] LABS: Lymphocytes % (manual) 58 (10.0-50.0); Monocytes % (manual) 11 (0-12)
[2019-02-18 13:00] VITALS: BP 127/83
[2019-02-18 13:10] VITALS: BP 127/83
== END 2019-02-18 15:50 | disposition home or self-care (01) | DRG 808 ==
LOC: EDBD 02:47 → ER 02:49 → OVERFLOW 02:50 → EAST 15:47
PROVIDERS: ADMIT Nurse Practitioner; ATTEND Internal Medicine
DX: D61.810 Antineoplastic chemotherapy induced pancytopenia (principal); J18.8 Other pneumonia, unspecified organism; E27.40 Unspecified adrenocortical insufficiency; E22.2 Syndrome of inappropriate secretion of antidiuretic hormone; C34.90 Malignant neoplasm of unspecified part of unspecified bronchus or lung; C78.7 Secondary malignant neoplasm of liver and intrahepatic bile duct; E44.0 Moderate protein-calorie malnutrition; E87.6 Hypokalemia; D72.829 Elevated white blood cell count, unspecified; E03.9 Hypothyroidism, unspecified; I10 Essential (primary) hypertension; E78.5 Hyperlipidemia, unspecified; J45.909 Unspecified asthma, uncomplicated; E11.9 Type 2 diabetes mellitus without complications; E78.00 Pure hypercholesterolemia, unspecified; M17.12 Unilateral primary osteoarthritis, left knee; T38.0X5A Adverse effect of glucocorticoids and synthetic analogues, initial encounter; T45.1X5A Adverse effect of antineoplastic and immunosuppressive drugs, initial encounter; D63.8 Anemia in other chronic diseases classified elsewhere; R62.7 Adult failure to thrive; Z88.0 Allergy status to penicillin; Z90.49 Acquired absence of other specified parts of digestive tract; Z87.891 Personal history of nicotine dependence; Y92.89 Other specified places as the place of occurrence of the external cause; Z68.25 Body mass index [BMI] 25.0-25.9, adult; Z79.899 Other long term (current) drug therapy
CPT/HCPCS: 36415; 71045; 80048; 80053; 81001; 82140; 83735; 83880; 83930; 83935; 84132; 84295; 84484; 84550; 85007; 85025; 85027; 85610; 85730; 87040; 87081; 93005; 96365; 96366; 96375; 96376; G0378; J1447; J1642; J1956; J2001; J2405; J3480

== ENCOUNTER → 2019-03-05 | Outpatient (CLI) | payer BC, MEDICARE ==
[~2019-03-05] MED LIST changes: -MORP-74; +MORP30TA5
[2019-03-05 11:08] LABS: Hematocrit 29.1 % (36.0-46.0); Hemoglobin 9.8 g/dL (12.2-16.2); Mean Corpuscular Hemoglobin 33.5 pg (28.0-32.0); Mean Corpuscular Hgb Conc. 33.7 g/dL (32.0-36.0); Mean Corpuscular Volume 99.5 fL (80.0-100.0); Platelet Count (auto) 278 10^3/uL (140-450); Red Blood Cells 2.93 10^6/uL (4.0-5.20); White Blood Cell 6.9 10^3/uL (4.4-10.8)
[2019-03-05 11:19] LABS: Basophils % (manual) 0 (0.0-2.0); Blast Cells 0; Eosinophils % (manual) 0 (0-7); Metamyelocytes % 0; Myelocytes % 0; Promyelocytes % 0; Reactive Lymphocytes 0; Red Cell Distribution Width 21.7 % (11.8-14.3)
[2019-03-05 11:22] LABS: Potassium 3.7 mmol/L (3.5-5.1)
[2019-03-05 12:06] LABS: Band Neutrophils % (manual) 1; Lymphocytes % (manual) 43 (10.0-50.0); Monocytes % (manual) 5 (0-12)
== END | disposition home or self-care (01) ==
LOC: LAB 10:39
PROVIDERS: ATTEND Internal Medicine Hematology & Oncology
DX: C34.2 Malignant neoplasm of middle lobe, bronchus or lung (principal)
CPT/HCPCS: 36415; 80048; 85007; 85027

== ENCOUNTER → 2019-03-11 | Outpatient (CLI) | payer BC, MEDICARE ==
[2019-03-11 12:18] LABS: Hemoglobin 9.9 g/dL (12.2-16.2); Mean Corpuscular Hemoglobin 33.4 pg (28.0-32.0); Mean Corpuscular Hgb Conc. 33.1 g/dL (32.0-36.0); Mean Corpuscular Volume 100.8 fL (80.0-100.0); Platelet Count (auto) 277 10^3/uL (140-450); Red Blood Cells 2.98 10^6/uL (4.0-5.20); White Blood Cell 8.3 10^3/uL (4.4-10.8)
[2019-03-11 12:42] LABS: Albumin 3.3 g/dL (3.4-5.0); Calcium 8.4 mg/dL (8.5-10.1); Potassium 3.9 mmol/L (3.5-5.1)
[2019-03-11 12:43] LABS: Red Cell Distribution Width 23.6 % (11.8-14.3)
[2019-03-11 12:45] LABS: BUN/Creatinine Ratio 18.7; Basophils % (manual) 0 (0.0-2.0); Bilirubin, Total 0.3 mg/dL (0.2-1.0); Blast Cells 0; Eosinophils % (manual) 0 (0-7); Metamyelocytes % 0; Myelocytes % 0; Reactive Lymphocytes 0; Total Protein 6.5 g/dL (6.4-8.2)
[2019-03-11 13:57] LABS: Band Neutrophils % (manual) 1; Lymphocytes % (manual) 28 (10.0-50.0); Monocytes % (manual) 9 (0-12); Promyelocytes % 1
== END | disposition home or self-care (01) ==
LOC: LAB 11:37
PROVIDERS: ATTEND Internal Medicine
DX: I10 Essential (primary) hypertension (principal); E11.9 Type 2 diabetes mellitus without complications; E03.9 Hypothyroidism, unspecified
CPT/HCPCS: 36415; 80053; 83036; 83735; 84443; 85007; 85027

== ENCOUNTER → 2019-03-21 | Outpatient (CLI) | payer BC, MEDICARE ==
[2019-03-21 10:53] LABS: Basophils # (auto) 0 uL; Basophils % (auto) 0.8 % (0.0-2.0); Eosinophils # (auto) 0.1 uL; Eosinophils % (auto) 1.5 % (0.0-7.0); Hematocrit 29.7 % (36.0-46.0); Lymphocytes # (auto) 1.7 uL; Mean Corpuscular Hgb Conc. 33.6 g/dL (32.0-36.0); Mean Corpuscular Volume 101.2 fL (80.0-100.0); Monocytes # (auto) 0.8 uL; Monocytes % (auto) 12.7 % (0.0-12.0); Neutrophils # (auto) 3.7 uL; Platelet Count (auto) 260 10^3/uL (140-450); Red Blood Cells 2.94 10^6/uL (4.0-5.20); Red Cell Distribution Width 23.4 % (11.8-14.3); White Blood Cell 6.4 10^3/uL (4.4-10.8)
== END | disposition home or self-care (01) ==
LOC: LAB 10:27
PROVIDERS: ATTEND Internal Medicine
DX: C34.2 Malignant neoplasm of middle lobe, bronchus or lung (principal)
CPT/HCPCS: 36415; 85025

== ENCOUNTER → 2019-03-27 | Outpatient (CLI) | payer BC, MEDICARE ==
[2019-03-27 13:54] LABS: Basophils # (auto) 0.1 uL; Eosinophils # (auto) 0.1 uL; Eosinophils % (auto) 1.1 % (0.0-7.0); Hematocrit 32.3 % (36.0-46.0); Hemoglobin 11.1 g/dL (12.2-16.2); Lymphocytes # (auto) 1.3 uL; Lymphocytes % (auto) 14.3 % (10.0-50.0); Mean Corpuscular Hgb Conc. 34.4 g/dL (32.0-36.0); Mean Corpuscular Volume 98.8 fL (80.0-100.0); Monocytes # (auto) 0.8 uL; Monocytes % (auto) 8.5 % (0.0-12.0); Neutrophils # (auto) 6.8 uL; Neutrophils % (auto) 75.1 % (37.0-80.0); Nucleated Red Blood Cells % 0.1 %; Platelet Count (auto) 268 10^3/uL (140-450); Red Blood Cells 3.27 10^6/uL (4.0-5.20)
[2019-03-27 14:03] LABS: % Iron Saturation 14.3 % (15-50); Albumin 3.4 g/dL (3.4-5.0); Calcium 8.4 mg/dL (8.5-10.1)
[2019-03-27 14:06] LABS: BUN/Creatinine Ratio 28.4; Bilirubin, Total 0.3 mg/dL (0.2-1.0); Total Protein 7.1 g/dL (6.4-8.2)
[2019-03-27 14:10] LABS: Ferritin 87.2 ng/mL (10-322); Red Cell Distribution Width 23.2 % (11.8-14.3)
[2019-03-27 14:11] LABS: Folate (Folic Acid) 7.69 ng/mL (5.38-24)
== END | disposition home or self-care (01) ==
LOC: LAB 13:45
PROVIDERS: ATTEND Internal Medicine
DX: C34.2 Malignant neoplasm of middle lobe, bronchus or lung (principal)
CPT/HCPCS: 36415; 80053; 82607; 82728; 82746; 83540; 83550; 83615; 85025

== ENCOUNTER → 2019-04-09 | Outpatient (CLI) | payer BC, OTHER ==
[~2019-04-09] MED LIST changes: +HYDR20TA19 PO; +LORA0.5T12 PO; +PANT1INJ3 PO; +POTA10TA51 PO
[2019-04-09 11:01] LABS: Basophils # (auto) 0 uL; Basophils % (auto) 0.3 % (0.0-2.0); Eosinophils # (auto) 0.1 uL; Hematocrit 31.7 % (36.0-46.0); Hemoglobin 10.5 g/dL (12.2-16.2); Lymphocytes # (auto) 1.3 uL; Lymphocytes % (auto) 14.1 % (10.0-50.0); Mean Corpuscular Hemoglobin 33.4 pg (28.0-32.0); Mean Corpuscular Hgb Conc. 33.3 g/dL (32.0-36.0); Mean Corpuscular Volume 100.3 fL (80.0-100.0); Monocytes # (auto) 0.6 uL; Neutrophils # (auto) 7.1 uL; Neutrophils % (auto) 77.6 % (37.0-80.0); Platelet Count (auto) 260 10^3/uL (140-450); Red Blood Cells 3.16 10^6/uL (4.0-5.20); White Blood Cell 9.1 10^3/uL (4.4-10.8)
[2019-04-09 11:04] LABS: Red Cell Distribution Width 21.7 % (11.8-14.3)
[2019-04-09 11:17] LABS: BUN/Creatinine Ratio 23.5; Calcium 8.4 mg/dL (8.5-10.1); Potassium 3.6 mmol/L (3.5-5.1)
== END | disposition home or self-care (01) ==
LOC: LAB 10:47
PROVIDERS: ATTEND Internal Medicine
DX: C34.2 Malignant neoplasm of middle lobe, bronchus or lung (principal)
CPT/HCPCS: 36415; 80048; 85025

== ENCOUNTER 2019-04-10 11:12 | Inpatient (IN) | payer BC, OTHER ==
[~2019-04-10] VITALS: Ht 157.5 cm; Wt 75.3 kg
[~2019-04-10 11:12] MED LIST changes: -HYDR20TA19 PO; -LORA0.5T12 PO; -PANT1INJ3 PO; -POTA10TA51 PO
--- NOTE | 2019-04-10 11:58 | NUR ---
PT ARRIVED TO UNIT VIA WHEELCHAIR. AMBULATORY. AWAKE, ALERT, ORIENTEDx4. DENIES DISCOMFORT AT MOMENT. PT CURRENTLY ON 2LNC EFFORTLESS BREATHING, BREATH SOUNDS WITH CRACKLES TO ALL ARGUELLES. PORT A CATH TO LEFT UPPER CHEST ACCESSED ON 04/09/19 PT ORIENTED TO ROOM ENVIRONMENT, COMFORTABLE ENVIRONMENT PROVIDED, FAMILY AT BEDSIDE, BED LOCKED AND IN LOWEST POSITION, CALL LIGHT WITHIN REACH. DR. ALDANA CALLED AND MADE AWARE OF PT'S ARRIVAL.
[2019-04-10 13:00] VITALS: BP 123/89
[2019-04-10] MEDS ORDERED: ACETAMINOPHEN 500 MG TAB PO PRN (13:15)
[2019-04-10] MEDS ORDERED: cefTRIAXone 1GM/50ML D5W 50 ML IV ONE (13:15)
[2019-04-10] MEDS ORDERED: ONDANSETRON HCL 4 MG/2 ML VIAL IV PRN (13:15)
[2019-04-10] MEDS ORDERED: PANTOPRAZOLE 40 MG TAB PO ONE (13:15)
[2019-04-10] MEDS ORDERED: AZITHROMYCIN 500MG/ 250ML 250 ML IV ONE (13:15)
[2019-04-10] MEDS ORDERED: HYDROcodone-ACET 5/325MG TAB PO PRN (13:15)
[2019-04-10 13:53] LABS: Basophils # (auto) 0 uL; Basophils % (auto) 0.4 % (0.0-2.0); Eosinophils # (auto) 0 uL; Eosinophils % (auto) 0.3 % (0.0-7.0); Hematocrit 31.8 % (36.0-46.0); Hemoglobin 10.5 g/dL (12.2-16.2); Lymphocytes # (auto) 0.7 uL; Lymphocytes % (auto) 7.5 % (10.0-50.0); Mean Corpuscular Volume 100.1 fL (80.0-100.0); Monocytes # (auto) 0.8 uL; Monocytes % (auto) 8.6 % (0.0-12.0); Neutrophils # (auto) 7.8 uL; Neutrophils % (auto) 83.2 % (37.0-80.0); Platelet Count (auto) 280 10^3/uL (140-450); Red Blood Cells 3.18 10^6/uL (4.0-5.20); White Blood Cell 9.3 10^3/uL (4.4-10.8)
[2019-04-10 13:57] LABS: Red Cell Distribution Width 21.2 % (11.8-14.3)
[2019-04-10] MEDS: SODIUM CHLORIDE 0.9% 1,000 ML IV SCH (13:59)
[2019-04-10 14:08] LABS: INR 0.95 (0.9-1.15); Partial Thromboplastin Time 25.9 sec (23.64-32.05)
[2019-04-10 14:18] LABS: Albumin 3.1 g/dL (3.4-5.0); Calcium 8.4 mg/dL (8.5-10.1); Potassium 3.8 mmol/L (3.5-5.1)
[2019-04-10 14:24] LABS: BUN/Creatinine Ratio 17.3; Bilirubin, Total 0.3 mg/dL (0.2-1.0); Total Protein 7.4 g/dL (6.4-8.2)
[2019-04-10 17:00] VITALS: BP 113/75
[2019-04-10] MEDS ORDERED: HYDR20TA19 PO (17:17)
[2019-04-10] MEDS ORDERED: POTA10TA51 PO (17:17)
[2019-04-10] MEDS ORDERED: PANT1INJ3 PO (17:17)
[2019-04-10] MEDS ORDERED: LORA0.5T12 PO (17:17)
--- NOTE | 2019-04-10 17:44 | NUR ---
URINE SPECIMEN COLLECTED; SENT TO LAB.
[2019-04-10 18:02] LABS: Urine Bacteria NONE SEEN /hpf (None Seen); Urine Blood 1+ /uL (Negative); Urine Specific Gravity 1.016 (1.001-1.035); Urine WBC 1 /hpf (0 - 5)
[2019-04-10] MEDS: ALBUTEROL SULF 2.5 MG/0.5ML(0.5%) NEB SOLN NEB SCH (19:11)
[2019-04-10] MEDS: IPRATROPIUM BROM 0.5 MG/2.5ML INH SOL NEB SCH (19:11)
[2019-04-10 21:00] VITALS: BP 113/75
[2019-04-10] MEDS: LORazepam 0.5 MG TAB PO PRN (21:09)
[2019-04-10] MEDS: HYDROCORTISONE 10 MG TAB PO SCH (21:09)
[2019-04-10 21:39] VITALS: BP 124/86
[2019-04-11] MEDS: SODIUM CHLORIDE 0.9% 1,000 ML IV SCH ×2 (02:35→19:15)
[2019-04-11 05:08] VITALS: BP 103/59
[2019-04-11 05:37] LABS: Basophils # (auto) 0 uL; Eosinophils # (auto) 0 uL; Eosinophils % (auto) 0.6 % (0.0-7.0); Hemoglobin 9.6 g/dL (12.2-16.2); Monocytes # (auto) 0.6 uL; Neutrophils % (auto) 75.1 % (37.0-80.0)
[2019-04-11 05:39] LABS: Basophils % (auto) 0.3 % (0.0-2.0); Hematocrit 28.2 % (36.0-46.0); Lymphocytes # (auto) 0.8 uL; Lymphocytes % (auto) 13.4 % (10.0-50.0); Mean Corpuscular Hemoglobin 33.9 pg (28.0-32.0); Mean Corpuscular Hgb Conc. 33.9 g/dL (32.0-36.0); Mean Corpuscular Volume 99.8 fL (80.0-100.0); Monocytes % (auto) 10.6 % (0.0-12.0); Neutrophils # (auto) 4.5 uL; Platelet Count (auto) 239 10^3/uL (140-450); Red Blood Cells 2.83 10^6/uL (4.0-5.20)
[2019-04-11 06:01] LABS: Calcium 8.2 mg/dL (8.5-10.1); Potassium 4.1 mmol/L (3.5-5.1)
[2019-04-11 06:03] LABS: BUN/Creatinine Ratio 22.9
[2019-04-11] MEDS: LEVOTHYROXINE SODIUM 88 MCG TAB PO SCH (06:31)
[2019-04-11] MEDS: IPRATROPIUM BROM 0.5 MG/2.5ML INH SOL NEB SCH ×3 (06:52→18:20)
[2019-04-11] MEDS: ALBUTEROL SULF 2.5 MG/0.5ML(0.5%) NEB SOLN NEB SCH ×3 (06:52→18:19)
[2019-04-11 08:47] VITALS: BP 125/80
[2019-04-11] MEDS: PANTOPRAZOLE 40 MG TAB PO SCH (09:10)
[2019-04-11] MEDS: HYDROCORTISONE 10 MG TAB PO SCH ×2 (09:13→21:12)
[2019-04-11] MEDS: cefTRIAXone 1GM/50ML D5W 50 ML IV SCH (09:14)
[2019-04-11] MEDS: AZITHROMYCIN 500MG/ 250ML 250 ML IV SCH (10:31)
--- NOTE | 2019-04-11 12:36 | NUR ---
Respiratory note: SCHEDULED MED NEB TX NOT GIVEN. PATIENT ASKED TO TAKE TX LATER, NO DISTRESS NOTED. PT WAS GETTING READY TO EAT LUNCH, FAMILY AT BEDSIDE.
[2019-04-11 12:53] VITALS: BP 145/80
[2019-04-11 17:00] VITALS: BP 123/74
--- NOTE | 2019-04-11 18:23 | NUR ---
RT NOTE PT WAS SEEN BY RT FOR HHN TX. PT TOLERATES WELL VIA MASK. NO ADVERSE REACTION NOTED. CONT ORDERED. POX 95% Addendum: 04/11/19 at 1824 by Gabby Kaminski RT Amended: Links added.
[2019-04-11] MEDS: LISINOPRIL 20 MG TAB PO SCH ×2 (21:11→21:26)
[2019-04-11] MEDS: LORazepam 0.5 MG TAB PO PRN (21:18)
[2019-04-11 22:00] VITALS: BP 101/52
[2019-04-12 05:00] VITALS: BP 113/70
[2019-04-12] MEDS: SODIUM CHLORIDE 0.9% 1,000 ML IV SCH (05:15)
[2019-04-12] MEDS: LEVOTHYROXINE SODIUM 88 MCG TAB PO SCH (05:56)
[2019-04-12] MEDS: IPRATROPIUM BROM 0.5 MG/2.5ML INH SOL NEB SCH ×2 (06:06→11:35)
[2019-04-12] MEDS: ALBUTEROL SULF 2.5 MG/0.5ML(0.5%) NEB SOLN NEB SCH ×2 (06:07→11:35)
[2019-04-12 06:56] LABS: Basophils # (auto) 0 uL; Basophils % (auto) 0.6 % (0.0-2.0); Eosinophils # (auto) 0 uL; Eosinophils % (auto) 0.6 % (0.0-7.0); Hematocrit 26.5 % (36.0-46.0); Hemoglobin 9.1 g/dL (12.2-16.2); Lymphocytes % (auto) 18.2 % (10.0-50.0); Mean Corpuscular Hemoglobin 33.9 pg (28.0-32.0); Mean Corpuscular Hgb Conc. 34.5 g/dL (32.0-36.0); Mean Corpuscular Volume 98.4 fL (80.0-100.0); Monocytes # (auto) 0.7 uL; Neutrophils # (auto) 3.8 uL; Neutrophils % (auto) 68.6 % (37.0-80.0); Platelet Count (auto) 261 10^3/uL (140-450); White Blood Cell 5.6 10^3/uL (4.4-10.8)
[2019-04-12 07:00] LABS: Red Cell Distribution Width 20.8 % (11.8-14.3)
--- NOTE | 2019-04-12 08:05 | NUR ---
Opening Note Assumed care of patient, she is A & O x4, patient c/o headache pain level 3, requesting advil, patient does not want Tylenol and states "I am allergic to [place]." Will bring to the attention of the doctor. POC discussed with patient, bed is in lowest, locked position, call light within reach. Will continue to monitor Q1h and PRN.
[2019-04-12] MEDS: cefTRIAXone 1GM/50ML D5W 50 ML IV SCH (09:00)
[2019-04-12 09:31] VITALS: BP 122/70
[2019-04-12] MEDS: AZITHROMYCIN 500MG/ 250ML 250 ML IV SCH (10:00)
--- NOTE | 2019-04-12 10:10 | NUR ---
Dr. Fong at bedside Would like patient to walk on room air, monitor O2 saturation.
[2019-04-12] MEDS: PANTOPRAZOLE 40 MG TAB PO SCH (10:17)
[2019-04-12] MEDS: HYDROCORTISONE 10 MG TAB PO SCH (10:18)
[2019-04-12] MEDS: LISINOPRIL 20 MG TAB PO SCH (10:19)
--- NOTE | 2019-04-12 10:40 | NUR ---
Ambulated on RA Patient sitting at bedside on RA O2 sat 94%, HR 103, while ambulating patient O2 saturation drops to 85% on RA, HR 134. Notified Dr. Fong, patient refuses ABG at this time. Will follow through with doctors orders.
--- NOTE | 2019-04-12 13:00 | NUR ---
Patient waiting for her ride. Discharge instructions given. Agueda-cath access flushed with heparin and removed.
--- NOTE | 2019-04-12 13:43 | NUR ---
Discharge instructions given as ordered. Encourage to follow up with PMD as instructed. All questions and concerns addressed. Patient verbalized understanding. Medication reconciliation form completed and copy given to patient. Agueda-cath IV removed with catheter intact, pressure dressing applied. Patient taken to vehicle via wheelchair with all personal belongings, accompanied by staff and family member. No distress noted at time of departure.
--- NOTE | 2019-04-12 14:37 | NUR ---
Patient discharged Addendum: 04/12/19 at 1437 by SUJIT ROBBINS RN RN Amended: Links added.
== END 2019-04-12 13:43 | disposition home or self-care (01) | DRG 193 ==
LOC: UNDOADMIN 11:12 → CENTRAL 11:12
PROVIDERS: ADMIT Internal Medicine; ATTEND Internal Medicine
DX: J18.9 Pneumonia, unspecified organism (principal); J96.00 Acute respiratory failure, unspecified whether with hypoxia or hypercapnia; E27.1 Primary adrenocortical insufficiency; J44.0 Chronic obstructive pulmonary disease with (acute) lower respiratory infection; E03.9 Hypothyroidism, unspecified; I10 Essential (primary) hypertension; Z85.118 Personal history of other malignant neoplasm of bronchus and lung; Z92.21 Personal history of antineoplastic chemotherapy; Z88.1 Allergy status to other antibiotic agents; Z88.0 Allergy status to penicillin
CPT/HCPCS: 36415; 71046; 80048; 80053; 81001; 85025; 85610; 85730; 87040; 94640; G0378; J0696; J1642

== ENCOUNTER → 2019-04-18 | Outpatient (CLI) | payer BC, OTHER ==
[~2019-04-18] MED LIST changes: -ALBU1AER4; -BACL10TA; -FLUT1AER3 IN; +HYDR20TA19 PO; +LORA0.5T12 PO; -MORP30TA5; +PANT1INJ3 PO; +POTA10TA51 PO; -SIMV10TA84 PO
[2019-04-18 11:36] LABS: Hematocrit 31.9 % (36.0-46.0); Hemoglobin 10.6 g/dL (12.2-16.2); Mean Corpuscular Hemoglobin 32.8 pg (28.0-32.0); Mean Corpuscular Hgb Conc. 33.1 g/dL (32.0-36.0); Mean Corpuscular Volume 99.2 fL (80.0-100.0); Platelet Count (auto) 327 10^3/uL (140-450); Red Blood Cells 3.22 10^6/uL (4.0-5.20); White Blood Cell 9.7 10^3/uL (4.4-10.8)
[2019-04-18 11:37] LABS: Red Cell Distribution Width 20.3 % (11.8-14.3)
[2019-04-18 11:39] LABS: Basophils % (manual) 0 (0.0-2.0); Blast Cells 0; Eosinophils % (manual) 0 (0-7); Myelocytes % 0; Promyelocytes % 0; Reactive Lymphocytes 0
[2019-04-18 11:41] LABS: Calcium 8.4 mg/dL (8.5-10.1); Potassium 3.8 mmol/L (3.5-5.1)
[2019-04-18 11:47] LABS: BUN/Creatinine Ratio 20.6; Bilirubin, Total 0.2 mg/dL (0.2-1.0); Total Protein 7.1 g/dL (6.4-8.2)
[2019-04-18 11:49] LABS: Band Neutrophils % (manual) 4; Lymphocytes % (manual) 14 (10.0-50.0); Metamyelocytes % 2; Monocytes % (manual) 7 (0-12)
== END | disposition home or self-care (01) ==
LOC: LAB 10:36
PROVIDERS: ATTEND Internal Medicine
DX: C34.2 Malignant neoplasm of middle lobe, bronchus or lung (principal); C78.01 Secondary malignant neoplasm of right lung; J45.909 Unspecified asthma, uncomplicated; I10 Essential (primary) hypertension; E78.00 Pure hypercholesterolemia, unspecified; E03.9 Hypothyroidism, unspecified; E11.9 Type 2 diabetes mellitus without complications
CPT/HCPCS: 36415; 80053; 85007; 85027

== ENCOUNTER → 2019-04-23 | Outpatient (CLI) | payer BC, OTHER ==
[2019-04-23 10:44] LABS: Basophils # (auto) 0 uL; Basophils % (auto) 0.6 % (0.0-2.0); Eosinophils # (auto) 0.1 uL; Eosinophils % (auto) 1.8 % (0.0-7.0); Hematocrit 32.9 % (36.0-46.0); Lymphocytes # (auto) 1.9 uL; Lymphocytes % (auto) 39.1 % (10.0-50.0); Mean Corpuscular Hemoglobin 33.1 pg (28.0-32.0); Mean Corpuscular Hgb Conc. 33.4 g/dL (32.0-36.0); Monocytes # (auto) 0.4 uL; Monocytes % (auto) 8.1 % (0.0-12.0); Neutrophils # (auto) 2.5 uL; Neutrophils % (auto) 50.4 % (37.0-80.0); Nucleated Red Blood Cells % 0.1 %; Platelet Count (auto) 346 10^3/uL (140-450); Red Blood Cells 3.32 10^6/uL (4.0-5.20); Red Cell Distribution Width 20.1 % (11.8-14.3); White Blood Cell 4.9 10^3/uL (4.4-10.8)
[2019-04-23 11:05] LABS: Albumin 3.3 g/dL (3.4-5.0); BUN/Creatinine Ratio 19.5; Calcium 8.6 mg/dL (8.5-10.1); Magnesium 2.2 mg/dL (1.6-2.6); Potassium 4.4 mmol/L (3.5-5.1)
[2019-04-23 11:08] LABS: Bilirubin, Total 0.4 mg/dL (0.2-1.0); Total Protein 6.8 g/dL (6.4-8.2)
== END | disposition home or self-care (01) ==
LOC: LAB 10:36
PROVIDERS: ATTEND Internal Medicine
DX: E03.9 Hypothyroidism, unspecified (principal)
CPT/HCPCS: 36415; 80053; 83735; 84439; 84443; 85025

== ENCOUNTER → 2019-05-07 | Outpatient (CLI) | payer OTHER ==
[2019-05-07 10:20] LABS: Eosinophils # (auto) 0.1 uL; Eosinophils % (auto) 1.4 % (0.0-7.0); Hematocrit 33.9 % (36.0-46.0); Hemoglobin 11.4 g/dL (12.2-16.2); Lymphocytes # (auto) 1.2 uL; Monocytes # (auto) 0.5 uL; Red Blood Cells 3.34 10^6/uL (4.0-5.20)
[2019-05-07 10:21] LABS: Basophils # (auto) 0 uL; Basophils % (auto) 0.5 % (0.0-2.0); Lymphocytes % (auto) 12.5 % (10.0-50.0); Mean Corpuscular Hgb Conc. 33.5 g/dL (32.0-36.0); Mean Corpuscular Volume 101.4 fL (80.0-100.0); Monocytes % (auto) 5.7 % (0.0-12.0); Neutrophils # (auto) 7.4 uL; Neutrophils % (auto) 79.9 % (37.0-80.0); Platelet Count (auto) 277 10^3/uL (140-450); Red Cell Distribution Width 19.5 % (11.8-14.3); White Blood Cell 9.2 10^3/uL (4.4-10.8)
[2019-05-07 10:50] LABS: Albumin 3.3 g/dL (3.4-5.0); Calcium 8.5 mg/dL (8.5-10.1); Potassium 3.6 mmol/L (3.5-5.1)
[2019-05-07 10:56] LABS: BUN/Creatinine Ratio 23.4; Bilirubin, Total 0.2 mg/dL (0.2-1.0); Total Protein 6.7 g/dL (6.4-8.2)
== END | disposition home or self-care (01) ==
LOC: LAB 10:07
PROVIDERS: ATTEND Internal Medicine
DX: C34.2 Malignant neoplasm of middle lobe, bronchus or lung (principal); E03.9 Hypothyroidism, unspecified; I10 Essential (primary) hypertension; Z87.891 Personal history of nicotine dependence; Z88.1 Allergy status to other antibiotic agents; Z88.0 Allergy status to penicillin
CPT/HCPCS: 36415; 80053; 84481; 85025

== ENCOUNTER → 2019-05-14 | Outpatient (CLI) | payer OTHER ==
[2019-05-14 09:36] LABS: Hemoglobin 12.1 g/dL (12.2-16.2); Mean Corpuscular Hgb Conc. 32.9 g/dL (32.0-36.0); Red Cell Distribution Width 18.8 % (11.8-14.3); White Blood Cell 13.2 10^3/uL (4.4-10.8)
[2019-05-14 09:38] LABS: Hematocrit 36.7 % (36.0-46.0); Mean Corpuscular Hemoglobin 33.5 pg (28.0-32.0); Mean Corpuscular Volume 101.9 fL (80.0-100.0); Platelet Count (auto) 282 10^3/uL (140-450)
[2019-05-14 09:40] LABS: Basophils % (manual) 0 (0.0-2.0); Blast Cells 0; Promyelocytes % 0; Reactive Lymphocytes 0
[2019-05-14 10:37] LABS: Band Neutrophils % (manual) 10; Eosinophils % (manual) 2 (0-7); Lymphocytes % (manual) 16 (10.0-50.0); Metamyelocytes % 2; Monocytes % (manual) 6 (0-12); Myelocytes % 1
[2019-05-14 10:52] LABS: Potassium 4.3 mmol/L (3.5-5.1)
[2019-05-14 10:59] LABS: Albumin 3.7 g/dL (3.4-5.0); Bilirubin, Total 0.2 mg/dL (0.2-1.0); Calcium 9.2 mg/dL (8.5-10.1)
== END | disposition home or self-care (01) ==
LOC: LAB 09:25
PROVIDERS: ATTEND Internal Medicine
DX: C34.2 Malignant neoplasm of middle lobe, bronchus or lung (principal)
CPT/HCPCS: 36415; 80053; 83036; 83615; 85007; 85027

== ENCOUNTER → 2019-05-28 | Outpatient (CLI) | payer OTHER ==
[2019-05-28 09:50] LABS: Hematocrit 36.5 % (36.0-46.0); Hemoglobin 12.4 g/dL (12.2-16.2); Mean Corpuscular Hemoglobin 34.2 pg (28.0-32.0); Mean Corpuscular Hgb Conc. 33.8 g/dL (32.0-36.0); Mean Corpuscular Volume 100.9 fL (80.0-100.0); Platelet Count (auto) 311 10^3/uL (140-450); Red Blood Cells 3.62 10^6/uL (4.0-5.20); Red Cell Distribution Width 16.9 % (11.8-14.3); White Blood Cell 7.3 10^3/uL (4.4-10.8)
[2019-05-28 09:54] LABS: Basophils % (manual) 0 (0.0-2.0); Blast Cells 0; Eosinophils % (manual) 0 (0-7); Promyelocytes % 0; Reactive Lymphocytes 0
[2019-05-28 10:23] LABS: Calcium 8.6 mg/dL (8.5-10.1); Potassium 4.2 mmol/L (3.5-5.1)
[2019-05-28 10:27] LABS: Albumin 3.3 g/dL (3.4-5.0)
[2019-05-28 10:28] LABS: Band Neutrophils % (manual) 3; Lymphocytes % (manual) 28 (10.0-50.0); Metamyelocytes % 1; Monocytes % (manual) 3 (0-12); Myelocytes % 1
[2019-05-28 10:30] LABS: Bilirubin, Total 0.2 mg/dL (0.2-1.0); Total Protein 6.9 g/dL (6.4-8.2)
== END | disposition home or self-care (01) ==
LOC: LAB 09:27
PROVIDERS: ATTEND Internal Medicine
DX: C34.2 Malignant neoplasm of middle lobe, bronchus or lung (principal)
CPT/HCPCS: 36415; 80053; 85007; 85027

== ENCOUNTER → 2019-07-01 | Outpatient (CLI) | payer OTHER, MEDICARE ==
[2019-07-01 11:26] LABS: Hematocrit 32.8 % (36.0-46.0); Hemoglobin 11.4 g/dL (12.2-16.2); Mean Corpuscular Hemoglobin 32.8 pg (28.0-32.0); Mean Corpuscular Hgb Conc. 34.9 g/dL (32.0-36.0); Platelet Count (auto) 142 10^3/uL (140-450); Red Blood Cells 3.49 10^6/uL (4.0-5.20); Red Cell Distribution Width 15.3 % (11.8-14.3)
[2019-07-01 11:35] LABS: Basophils % (manual) 0 (0.0-2.0); Blast Cells 0; Metamyelocytes % 0; Myelocytes % 0; Promyelocytes % 0; Reactive Lymphocytes 0
[2019-07-01 11:52] LABS: Band Neutrophils % (manual) 3; Eosinophils % (manual) 1 (0-7); Lymphocytes % (manual) 20 (10.0-50.0); Monocytes % (manual) 5 (0-12)
[2019-07-01 12:05] LABS: Albumin 3.5 g/dL (3.4-5.0); Calcium 8.7 mg/dL (8.5-10.1); Potassium 3.7 mmol/L (3.5-5.1)
[2019-07-01 12:09] LABS: BUN/Creatinine Ratio 19.7; Bilirubin, Total 0.2 mg/dL (0.2-1.0); Total Protein 6.9 g/dL (6.4-8.2)
== END | disposition home or self-care (01) ==
LOC: LAB 11:12
PROVIDERS: ATTEND Internal Medicine
DX: C34.2 Malignant neoplasm of middle lobe, bronchus or lung (principal)
CPT/HCPCS: 36415; 80053; 83615; 85007; 85027

== ENCOUNTER → 2019-07-22 | Outpatient (CLI) | payer OTHER ==
[2019-07-22 12:23] LABS: Albumin 3.7 g/dL (3.4-5.0); Potassium 4.2 mmol/L (3.5-5.1)
[2019-07-22 12:27] LABS: BUN/Creatinine Ratio 23.2; Bilirubin, Total 0.3 mg/dL (0.2-1.0); Total Protein 7.1 g/dL (6.4-8.2)
[2019-07-22 12:34] LABS: Basophils # (auto) 0 uL; Basophils % (auto) 0.4 % (0.0-2.0); Eosinophils # (auto) 0 uL; Eosinophils % (auto) 0.3 % (0.0-7.0); Hematocrit 30.9 % (36.0-46.0); Hemoglobin 10.7 g/dL (12.2-16.2); Lymphocytes # (auto) 1.8 uL; Lymphocytes % (auto) 19.2 % (10.0-50.0); Mean Corpuscular Hemoglobin 32.7 pg (28.0-32.0); Mean Corpuscular Hgb Conc. 34.7 g/dL (32.0-36.0); Mean Corpuscular Volume 94.4 fL (80.0-100.0); Monocytes # (auto) 1.4 uL; Monocytes % (auto) 14.9 % (0.0-12.0); Neutrophils # (auto) 6.2 uL; Neutrophils % (auto) 65.2 % (37.0-80.0); Platelet Count (auto) 196 10^3/uL (140-450); Red Blood Cells 3.28 10^6/uL (4.0-5.20); Red Cell Distribution Width 15.8 % (11.8-14.3); White Blood Cell 9.6 10^3/uL (4.4-10.8)
== END | disposition home or self-care (01) ==
LOC: LAB 11:19
PROVIDERS: ATTEND Internal Medicine
DX: C34.2 Malignant neoplasm of middle lobe, bronchus or lung (principal)
CPT/HCPCS: 36415; 80053; 85025

== ENCOUNTER → 2019-08-08 | Outpatient (CLI) | payer OTHER ==
[2019-08-08 10:56] LABS: Hematocrit 25.9 % (36.0-46.0); Hemoglobin 8.8 g/dL (12.2-16.2); Mean Corpuscular Hemoglobin 32.4 pg (28.0-32.0); Mean Corpuscular Hgb Conc. 34.2 g/dL (32.0-36.0); Mean Corpuscular Volume 94.7 fL (80.0-100.0); Platelet Count (auto) 74 10^3/uL (140-450); Red Blood Cells 2.73 10^6/uL (4.0-5.20); Red Cell Distribution Width 16.2 % (11.8-14.3); White Blood Cell 11.8 10^3/uL (4.4-10.8)
[2019-08-08 11:08] LABS: Albumin 3.4 g/dL (3.4-5.0); Potassium 4.2 mmol/L (3.5-5.1)
[2019-08-08 11:13] LABS: BUN/Creatinine Ratio 17.6; Bilirubin, Total 0.4 mg/dL (0.2-1.0)
[2019-08-08 11:56] LABS: Basophils % (manual) 0 (0.0-2.0); Blast Cells 0; Promyelocytes % 0; Reactive Lymphocytes 0
[2019-08-08 13:42] LABS: Band Neutrophils % (manual) 4; Eosinophils % (manual) 1 (0-7); Lymphocytes % (manual) 14 (10.0-50.0); Metamyelocytes % 1; Monocytes % (manual) 3 (0-12); Myelocytes % 1
== END | disposition home or self-care (01) ==
LOC: LAB 10:30
PROVIDERS: ATTEND Internal Medicine
DX: C34.2 Malignant neoplasm of middle lobe, bronchus or lung (principal)
CPT/HCPCS: 36415; 80053; 83615; 85007; 85027

== ENCOUNTER → 2019-08-13 | Outpatient (CLI) | payer OTHER ==
[2019-08-13 09:32] LABS: Hematocrit 28.2 % (36.0-46.0); Hemoglobin 9.5 g/dL (12.2-16.2); Mean Corpuscular Hemoglobin 32.8 pg (28.0-32.0); Mean Corpuscular Hgb Conc. 33.8 g/dL (32.0-36.0); Mean Corpuscular Volume 97.2 fL (80.0-100.0); Platelet Count (auto) 207 10^3/uL (140-450); Red Cell Distribution Width 16.7 % (11.8-14.3); White Blood Cell 5.8 10^3/uL (4.4-10.8)
[2019-08-13 09:35] LABS: Band Neutrophils % (manual) 0; Basophils % (manual) 0 (0.0-2.0); Blast Cells 0; Eosinophils % (manual) 0 (0-7); Myelocytes % 0; Promyelocytes % 0; Reactive Lymphocytes 0
[2019-08-13 10:37] LABS: Lymphocytes % (manual) 42 (10.0-50.0); Metamyelocytes % 1; Monocytes % (manual) 18 (0-12)
== END | disposition home or self-care (01) ==
LOC: LAB 09:15
PROVIDERS: ATTEND Internal Medicine
DX: C34.2 Malignant neoplasm of middle lobe, bronchus or lung (principal)
CPT/HCPCS: 36415; 85007; 85027

== ENCOUNTER 2019-08-29 15:19 | Inpatient (IN) | payer OTHER ==
[~2019-08-29] VITALS: Ht 165.1 cm; Wt 80.2 kg
[~2019-08-29 15:19] MED LIST changes: -DEXT1SYP9 PO; -FLUT1AER3 IN; -LEVO750T64 PO
--- NOTE | 2019-08-29 15:50 | NUR ---
Direct Admit Note PASCUALSURY HALE admitted to Telemetry/MS unit as a direct admit per MD order. Patient oriented to XIMENA SAMUELS, primary RN, unit, room, bed, and unit policies regarding patient care and visiting hours. Patient now on continuous telemetry monitoring, tele box # and telemetry reading on arrival to unit is . Patient weighed by bedscale and encouraged to call if they need something. All questions and concerns addressed, patient verbalized understanding. MD notified of patients arrival.
--- NOTE | 2019-08-29 16:05 | NUR ---
CALLED DR. GARCIA'S OFFICE REGARDING ORDERS FOR DIRECT ADMIT. DR. GARCIA ADVISED THAT SHE WOULD PUT IN ORDERS FOR THE PATIENT.
[2019-08-29] MEDS ORDERED: traMADol HCL 50 MG TAB PO ONE (16:15)
[2019-08-29] MEDS ORDERED: POTASSIUM CHL 20 Meq TABLET PO ONE (16:15)
[2019-08-29] MEDS ORDERED: HYDROCORTISONE 10 MG TAB PO ONE (16:15)
[2019-08-29] MEDS ORDERED: PANTOPRAZOLE 40 MG TAB PO ONE (16:15)
[2019-08-29] MEDS ORDERED: LISINOPRIL 20 MG TAB PO ONE (16:15)
[2019-08-29] MEDS ORDERED: LEVOTHYROXINE SODIUM 25 MCG TAB PO ONE (16:15)
[2019-08-29] MEDS ORDERED: levoFLOXacin 500MG 100 ML IV ONE (16:15)
[2019-08-29 16:22] VITALS: BP 106/67
[2019-08-29] MEDS ORDERED: FLUT1AER3 IN (17:01)
[2019-08-29 18:34] LABS: Basophils # (auto) 0 10 ^3/uL (0-0.2); Eosinophils # (auto) 0 10 ^3/uL (0-0.8); Eosinophils % (auto) 0.4 % (0.0-7.0); Hemoglobin 7.2 g/dL (12.2-16.2); Monocytes # (auto) 1.8 10 ^3/uL (0-1.3); Platelet Count (auto) 52 10^3/uL (140-450)
[2019-08-29 18:35] LABS: Basophils % (auto) 0.1 % (0.0-2.0); Hematocrit 20.7 % (36.0-46.0); Lymphocytes % (auto) 19.7 % (10.0-50.0); Mean Corpuscular Hemoglobin 34.1 pg (28.0-32.0); Mean Corpuscular Hgb Conc. 34.8 g/dL (32.0-36.0); Monocytes % (auto) 17.5 % (0.0-12.0); Neutrophils # (auto) 6.3 10 ^3/uL (1.6-8.6); Neutrophils % (auto) 62.3 % (37.0-80.0); Nucleated Red Blood Cells % 0.2 %; Red Blood Cells 2.12 10^6/uL (4.0-5.20); Red Cell Distribution Width 18.2 % (11.8-14.3); White Blood Cell 10.2 10^3/uL (4.4-10.8)
[2019-08-29 18:52] LABS: BUN/Creatinine Ratio 14.7; Calcium 8.6 mg/dL (8.5-10.1); Potassium 4.2 mmol/L (3.5-5.1)
[2019-08-29] MEDS: DOCUSATE SOD 100 MG CAP PO SCH (20:05)
[2019-08-29] MEDS: GABAPENTIN 300 MG CAP PO SCH (20:05)
[2019-08-29] MEDS ORDERED: LORazepam 0.5 MG TAB PO ONE (21:00)
--- NOTE | 2019-08-29 21:17 | NUR ---
order signed by Hospitalist Juan J for blood transfusion
[2019-08-29 21:56] VITALS: BP 90/55
--- NOTE | 2019-08-29 22:09 | NUR ---
1 Unit PRBC started per MD order
[2019-08-29 22:25] VITALS: BP 93/55
[2019-08-29 22:34] VITALS: BP 109/71
[2019-08-30] VITALS (10 sets, daily range): BP systolic 91–111; BP diastolic 47–77
--- NOTE | 2019-08-30 01:03 | NUR ---
Transfusion complete, pt tolerated well. See VS flow sheet
[2019-08-30] MEDS: traMADol HCL 50 MG TAB PO PRN ×3 (01:18→20:36)
--- NOTE | 2019-08-30 01:18 | NUR ---
Pain Management Pt medicated for c/o right shoulder pain 10/03/ medicated as ordered. Pt ambulated to restroom, assisted back to bed, call light within reach
--- NOTE | 2019-08-30 02:54 | NUR ---
Pain Management Pt medicated for c/o 02/02 sinus/nose pain, will continue to monitor
--- NOTE | 2019-08-30 06:00 | NUR ---
Rounds Patient awake and alert sitting up in bed just returned from restroom. No S/S of distress/SOB. Will continue to monitor changes q1hr and PRN. Call light within reach
[2019-08-30] MEDS: LEVOTHYROXINE SODIUM 25 MCG TAB PO SCH (06:03)
[2019-08-30 06:18] LABS: Hematocrit 25.4 % (36.0-46.0); Hemoglobin 8.8 g/dL (12.2-16.2); White Blood Cell 7.5 10^3/uL (4.4-10.8)
[2019-08-30 06:21] LABS: Mean Corpuscular Hemoglobin 32.9 pg (28.0-32.0); Mean Corpuscular Hgb Conc. 34.8 g/dL (32.0-36.0); Mean Corpuscular Volume 94.6 fL (80.0-100.0); Platelet Count (auto) 52 10^3/uL (140-450); Red Blood Cells 2.69 10^6/uL (4.0-5.20); Red Cell Distribution Width 19.4 % (11.8-14.3)
[2019-08-30 06:26] LABS: Basophils % (manual) 0 (0.0-2.0); Blast Cells 0; Metamyelocytes % 0; Myelocytes % 0; Promyelocytes % 0; Reactive Lymphocytes 0
[2019-08-30 06:34] LABS: Albumin 3.1 g/dL (3.4-5.0); Calcium 8.5 mg/dL (8.5-10.1)
[2019-08-30 06:37] LABS: BUN/Creatinine Ratio 15.2; Bilirubin, Total 0.7 mg/dL (0.2-1.0); Total Protein 6.5 g/dL (6.4-8.2)
--- NOTE | 2019-08-30 07:01 | NUR ---
Pain Management Pt medicated for c/o right shoulder pain 12/03. Offered heating pad, declined. Will continue to monitor
[2019-08-30 07:04] LABS: Band Neutrophils % (manual) 1; Eosinophils % (manual) 2 (0-7); Lymphocytes % (manual) 33 (10.0-50.0); Monocytes % (manual) 10 (0-12)
--- NOTE | 2019-08-30 07:14 | NUR ---
Endorsed care to day nurse, Endorsed synthroid dosage medication order change to home med dosage.
--- NOTE | 2019-08-30 07:30 | NUR ---
Opening Shift Note RECEIVED REPORT FROM NOC RN. Assumed care of patient, awake and alert. No S/S of distress/SOB or pain. BED IN LOWEST, LOCKED POSITION WITH SIDERAILS UP x2 AND CALL LIGHT WITHIN REACH. Instructed on POC and to call for assist PRN, will continue to monitor for changes Q1hr and PRN.
[2019-08-30] MEDS ORDERED: HYDROCORTISONE 10 MG TAB PO ONE (10:00)
[2019-08-30] MEDS ORDERED: LISINOPRIL 20 MG TAB PO SCH (10:00)
[2019-08-30] MEDS: GABAPENTIN 300 MG CAP PO SCH ×2 (10:00→20:40)
[2019-08-30] MEDS: DOCUSATE SOD 100 MG CAP PO SCH ×2 (10:20→20:37)
[2019-08-30] MEDS: levoFLOXacin 500MG 100 ML IV SCH (10:20)
[2019-08-30] MEDS: POTASSIUM CHL 20 Meq TABLET PO SCH (10:20)
[2019-08-30] MEDS: PANTOPRAZOLE 40 MG TAB PO SCH (10:21)
[2019-08-30] MEDS: HYDROCORTISONE 10 MG TAB PO SCH (20:36)
--- NOTE | 2019-08-30 23:30 | NUR ---
UA sent to lab
[2019-08-30 23:49] LABS: Urine Bacteria FEW /hpf (None Seen); Urine Blood TRACE /uL (Negative); Urine Mucus FEW (None Seen); Urine Specific Gravity 1.013 (1.001-1.035); Urine WBC 1 /hpf (0 - 5)
--- NOTE | 2019-08-31 00:51 | NUR ---
Rounds Patient sleeping, respirations even and unlabored, tv on. No S/S of distress/SOB on 1L NC or pain. Will continue to monitor changes q1hr and PRN.
[2019-08-31 05:00] VITALS: BP 89/52
[2019-08-31 06:14] LABS: Basophils # (auto) 0 10 ^3/uL (0-0.2); Basophils % (auto) 0.2 % (0.0-2.0); Eosinophils # (auto) 0 10 ^3/uL (0-0.8); Eosinophils % (auto) 0.2 % (0.0-7.0); Hemoglobin 8.4 g/dL (12.2-16.2); Neutrophils # (auto) 6.3 10 ^3/uL (1.6-8.6); Red Cell Distribution Width 18.8 % (11.8-14.3); White Blood Cell 8.6 10^3/uL (4.4-10.8)
[2019-08-31] MEDS: LEVOTHYROXINE SODIUM 25 MCG TAB PO SCH (06:15)
[2019-08-31 06:17] LABS: Hematocrit 23.9 % (36.0-46.0); Lymphocytes # (auto) 1.2 10 ^3/uL (0.4-5.4); Lymphocytes % (auto) 14.1 % (10.0-50.0); Mean Corpuscular Hemoglobin 32.9 pg (28.0-32.0); Mean Corpuscular Hgb Conc. 35.2 g/dL (32.0-36.0); Mean Corpuscular Volume 93.5 fL (80.0-100.0); Neutrophils % (auto) 73.5 % (37.0-80.0); Platelet Count (auto) 65 10^3/uL (140-450); Red Blood Cells 2.56 10^6/uL (4.0-5.20)
[2019-08-31] MEDS: traMADol HCL 50 MG TAB PO PRN (06:30)
--- NOTE | 2019-08-31 06:34 | NUR ---
Pain Management Pt medicated for shoulder pain 10/03
[2019-08-31 06:36] VITALS: BP 123/70
--- NOTE | 2019-08-31 07:45 | NUR ---
Opening Note Received report from lieutenant shift supervisor RN. Patient is resting in bed, no signs or symptoms of distress noted at this time. Patient is on room air, respirations even and unlabored. Bed in low and locked position, call light within reach. Will continue to monitor Q1 hour and PRN.
[2019-08-31] MEDS ORDERED: LEVO750T64 PO (08:50)
[2019-08-31] MEDS ORDERED: DEXT1SYP9 PO (08:50)
--- NOTE | 2019-08-31 08:50 | NUR ---
Dr. Blair at nurse station Discussing plan of care with this RN. Patient to be discharged today. MD instructed this RN to give patient 1000 medications prior to discharge. Will implement orders. Will continue to monitor Q1 hour and PRN.
[2019-08-31] MEDS: levoFLOXacin 500MG 100 ML IV SCH ×2 (08:54→09:23)
[2019-08-31] MEDS: POTASSIUM CHL 20 Meq TABLET PO SCH (08:54)
[2019-08-31] MEDS: DOCUSATE SOD 100 MG CAP PO SCH (08:54)
[2019-08-31] MEDS: PANTOPRAZOLE 40 MG TAB PO SCH (08:54)
[2019-08-31] MEDS: GABAPENTIN 300 MG CAP PO SCH (08:54)
[2019-08-31] MEDS: HYDROCORTISONE 10 MG TAB PO SCH (08:55)
[2019-08-31 09:00] VITALS: BP 99/62
--- NOTE | 2019-08-31 09:25 | NUR ---
Refused IV Patient IV is leaking. Patient refused to have new IV placed. Dr. Blair is aware, new order for Levaquin 750mg PO given. Will implement new orders. Will continue to monitor Q1 hour and PRN.
[2019-08-31] MEDS ORDERED: levoFLOXacin 250 MG TAB PO ONE (09:30)
[2019-08-31 10:24] VITALS: BP 99/62
--- NOTE | 2019-08-31 11:47 | NUR ---
Discharge Discharge instructions given as ordered. Encourage to follow up with PMD as instructed. All questions and concerns addressed. Patient verbalized understanding. Medication reconciliation form completed and copy given to patient. pvc monitor removed and sent back to ICU. Patient taken down to private vehicle via wheelchair, with all personal belongings. Patient accompanied by staff and family member. No signs or symptoms of distress noted at this time.
== END 2019-08-31 11:47 | disposition home or self-care (01) | DRG 202 ==
LOC: TELE-EAST 15:28
PROVIDERS: ADMIT Internal Medicine; ATTEND Internal Medicine
PROC: 30233N1 Transfusion of Nonautologous Red Blood Cells into Peripheral Vein, Percutaneous Approach (ICD-10-PCS; principal; 2019-08-29)
DX: J20.9 Acute bronchitis, unspecified (principal); C34.90 Malignant neoplasm of unspecified part of unspecified bronchus or lung; C78.7 Secondary malignant neoplasm of liver and intrahepatic bile duct; E44.1 Mild protein-calorie malnutrition; R50.9 Fever, unspecified; T45.1X5A Adverse effect of antineoplastic and immunosuppressive drugs, initial encounter; K21.9 Gastro-esophageal reflux disease without esophagitis; I10 Essential (primary) hypertension; D64.81 Anemia due to antineoplastic chemotherapy; J44.9 Chronic obstructive pulmonary disease, unspecified; E03.9 Hypothyroidism, unspecified; D69.59 Other secondary thrombocytopenia; E11.40 Type 2 diabetes mellitus with diabetic neuropathy, unspecified; R53.82 Chronic fatigue, unspecified; Y92.89 Other specified places as the place of occurrence of the external cause; Z80.3 Family history of malignant neoplasm of breast; Z85.118 Personal history of other malignant neoplasm of bronchus and lung; Z88.1 Allergy status to other antibiotic agents; Z88.0 Allergy status to penicillin; Z88.5 Allergy status to narcotic agent
CPT/HCPCS: 36415; 71045; 80048; 80053; 81001; 85007; 85025; 85027; 86850; 86900; 86901; 86920; 87040; 87086; G0378; J1956

== ENCOUNTER → 2019-08-29 | Outpatient (CLI) | payer OTHER ==
[~2019-08-29] MED LIST changes: +DEXT1SYP9 PO; +FLUT1AER3 IN; +LEVO750T64 PO
[2019-08-29 12:07] LABS: Hematocrit 21.5 % (36.0-46.0); Hemoglobin 7.2 g/dL (12.2-16.2); Mean Corpuscular Hemoglobin 33.2 pg (28.0-32.0); Mean Corpuscular Hgb Conc. 33.7 g/dL (32.0-36.0); Mean Corpuscular Volume 98.6 fL (80.0-100.0); Platelet Count (auto) 51 10^3/uL (140-450); Red Blood Cells 2.18 10^6/uL (4.0-5.20); Red Cell Distribution Width 18.8 % (11.8-14.3); White Blood Cell 11.5 10^3/uL (4.4-10.8)
[2019-08-29 12:14] LABS: Basophils % (manual) 0 (0.0-2.0); Blast Cells 0; Eosinophils % (manual) 0 (0-7); Metamyelocytes % 0; Promyelocytes % 0; Reactive Lymphocytes 0
[2019-08-29 12:22] LABS: Albumin 3.3 g/dL (3.4-5.0); Calcium 8.5 mg/dL (8.5-10.1); Potassium 3.9 mmol/L (3.5-5.1)
[2019-08-29 12:25] LABS: BUN/Creatinine Ratio 11.6; Bilirubin, Total 0.5 mg/dL (0.2-1.0); Total Protein 6.8 g/dL (6.4-8.2)
[2019-08-29 13:27] LABS: Band Neutrophils % (manual) 1; Lymphocytes % (manual) 23 (10.0-50.0); Monocytes % (manual) 14 (0-12); Myelocytes % 1
== END | disposition home or self-care (01) ==
LOC: LAB 11:54
PROVIDERS: ATTEND Internal Medicine
DX: C34.2 Malignant neoplasm of middle lobe, bronchus or lung (principal)
CPT/HCPCS: 36415; 80053; 85007; 85027

== ENCOUNTER → 2019-09-05 | Outpatient (CLI) | payer OTHER ==
[~2019-09-05] MED LIST changes: +FLUT1AER3 IN
[2019-09-05 11:39] LABS: Hematocrit 30.2 % (36.0-46.0); Hemoglobin 10.2 g/dL (12.2-16.2); Mean Corpuscular Hemoglobin 32.8 pg (28.0-32.0); Mean Corpuscular Hgb Conc. 33.9 g/dL (32.0-36.0); Mean Corpuscular Volume 96.7 fL (80.0-100.0); Platelet Count (auto) 183 10^3/uL (140-450); Red Blood Cells 3.13 10^6/uL (4.0-5.20); White Blood Cell 4.1 10^3/uL (4.4-10.8)
[2019-09-05 11:43] LABS: Red Cell Distribution Width 21.3 % (11.8-14.3)
[2019-09-05 11:44] LABS: Band Neutrophils % (manual) 0; Blast Cells 0; Eosinophils % (manual) 0 (0-7); Metamyelocytes % 0; Myelocytes % 0; Promyelocytes % 0; Reactive Lymphocytes 0
[2019-09-05 12:08] LABS: Basophils % (manual) 1 (0.0-2.0); Lymphocytes % (manual) 51 (10.0-50.0); Monocytes % (manual) 14 (0-12)
== END | disposition home or self-care (01) ==
LOC: LAB 11:29
PROVIDERS: ATTEND Internal Medicine
DX: C34.2 Malignant neoplasm of middle lobe, bronchus or lung (principal)
CPT/HCPCS: 36415; 85007; 85027

== ENCOUNTER → 2019-09-30 | Outpatient (CLI) | payer OTHER ==
[2019-09-30 10:26] LABS: Mean Corpuscular Hgb Conc. 34.8 g/dL (32.0-36.0); Mean Corpuscular Volume 100.5 fL (80.0-100.0); Platelet Count (auto) 74 10^3/uL (140-450); Red Blood Cells 2.59 10^6/uL (4.0-5.20); White Blood Cell 5.6 10^3/uL (4.4-10.8)
[2019-09-30 10:29] LABS: Band Neutrophils % (manual) 0; Basophils % (manual) 0 (0.0-2.0); Blast Cells 0; Eosinophils % (manual) 0 (0-7); Myelocytes % 0; Promyelocytes % 0; Reactive Lymphocytes 0; Red Cell Distribution Width 21.6 % (11.8-14.3)
[2019-09-30 11:28] LABS: Albumin 3.6 g/dL (3.4-5.0); Calcium 8.8 mg/dL (8.5-10.1); Potassium 3.9 mmol/L (3.5-5.1)
[2019-09-30 11:38] LABS: BUN/Creatinine Ratio 21.3; Bilirubin, Total 0.4 mg/dL (0.2-1.0); Total Protein 6.9 g/dL (6.4-8.2)
[2019-09-30 12:10] LABS: Lymphocytes % (manual) 22 (10.0-50.0); Metamyelocytes % 1; Monocytes % (manual) 9 (0-12)
== END | disposition home or self-care (01) ==
LOC: LAB 10:03
PROVIDERS: ATTEND Internal Medicine
DX: C34.2 Malignant neoplasm of middle lobe, bronchus or lung (principal)
CPT/HCPCS: 36415; 80053; 83615; 85007; 85027

== ENCOUNTER → 2019-10-07 | Outpatient (CLI) | payer OTHER ==
[2019-10-07 10:00] LABS: Hemoglobin 9.7 g/dL (12.2-16.2); Mean Corpuscular Volume 102.5 fL (80.0-100.0); White Blood Cell 9.1 10^3/uL (4.4-10.8)
[2019-10-07 10:01] LABS: Hematocrit 27.9 % (36.0-46.0); Mean Corpuscular Hemoglobin 35.5 pg (28.0-32.0); Mean Corpuscular Hgb Conc. 34.6 g/dL (32.0-36.0); Platelet Count (auto) 219 10^3/uL (140-450); Red Blood Cells 2.72 10^6/uL (4.0-5.20)
[2019-10-07 10:04] LABS: Basophils % (manual) 0 (0.0-2.0); Blast Cells 0; Myelocytes % 0; Promyelocytes % 0; Reactive Lymphocytes 0; Red Cell Distribution Width 22.3 % (11.8-14.3)
[2019-10-07 10:31] LABS: Band Neutrophils % (manual) 1; Eosinophils % (manual) 1 (0-7); Lymphocytes % (manual) 17 (10.0-50.0); Metamyelocytes % 1; Monocytes % (manual) 7 (0-12)
== END | disposition home or self-care (01) ==
LOC: LAB 09:43
PROVIDERS: ATTEND Internal Medicine
DX: C34.2 Malignant neoplasm of middle lobe, bronchus or lung (principal)
CPT/HCPCS: 36415; 85007; 85027

== ENCOUNTER → 2019-10-15 | Outpatient (CLI) | payer OTHER ==
[2019-10-15 10:07] LABS: Basophils # (auto) 0 10 ^3/uL (0-0.2); Eosinophils # (auto) 0.1 10 ^3/uL (0-0.8); Eosinophils % (auto) 0.6 % (0.0-7.0); Hemoglobin 10.3 g/dL (12.2-16.2); Monocytes # (auto) 1.6 10 ^3/uL (0-1.3)
[2019-10-15 10:09] LABS: Basophils % (auto) 0.5 % (0.0-2.0); Lymphocytes % (auto) 32.1 % (10.0-50.0); Mean Corpuscular Hemoglobin 34.2 pg (28.0-32.0); Mean Corpuscular Hgb Conc. 33.3 g/dL (32.0-36.0); Mean Corpuscular Volume 102.7 fL (80.0-100.0); Monocytes % (auto) 17.4 % (0.0-12.0); Neutrophils # (auto) 4.6 10 ^3/uL (1.6-8.6); Neutrophils % (auto) 49.4 % (37.0-80.0); Platelet Count (auto) 336 10^3/uL (140-450); Red Blood Cells 3.02 10^6/uL (4.0-5.20); White Blood Cell 9.3 10^3/uL (4.4-10.8)
[2019-10-15 10:11] LABS: Red Cell Distribution Width 20.6 % (11.8-14.3)
[2019-10-15 10:14] LABS: Albumin 3.4 g/dL (3.4-5.0); Calcium 8.9 mg/dL (8.5-10.1); Potassium 3.5 mmol/L (3.5-5.1)
[2019-10-15 10:17] LABS: BUN/Creatinine Ratio 17.4; Bilirubin, Total 0.7 mg/dL (0.2-1.0); Total Protein 7.3 g/dL (6.4-8.2)
== END | disposition home or self-care (01) ==
LOC: LAB 09:51
PROVIDERS: ATTEND Internal Medicine
DX: C34.2 Malignant neoplasm of middle lobe, bronchus or lung (principal)
CPT/HCPCS: 36415; 80053; 83615; 85025

== ENCOUNTER → 2019-10-21 | Outpatient (CLI) | payer OTHER ==
[2019-10-21 14:04] LABS: Basophils # (auto) 0 10 ^3/uL (0-0.2); Basophils % (auto) 0.3 % (0.0-2.0); Eosinophils # (auto) 0 10 ^3/uL (0-0.8); Monocytes # (auto) 0.2 10 ^3/uL (0-1.3); Nucleated Red Blood Cells % 0.1 %; White Blood Cell 10.5 10^3/uL (4.4-10.8)
[2019-10-21 14:07] LABS: Eosinophils % (auto) 0.4 % (0.0-7.0); Hemoglobin 9.9 g/dL (12.2-16.2); Lymphocytes # (auto) 1.8 10 ^3/uL (0.4-5.4); Lymphocytes % (auto) 17.5 % (10.0-50.0); Mean Corpuscular Hemoglobin 34.1 pg (28.0-32.0); Mean Corpuscular Volume 103.3 fL (80.0-100.0); Monocytes % (auto) 1.6 % (0.0-12.0); Neutrophils # (auto) 8.4 10 ^3/uL (1.6-8.6); Neutrophils % (auto) 80.2 % (37.0-80.0); Platelet Count (auto) 214 10^3/uL (140-450); Red Blood Cells 2.91 10^6/uL (4.0-5.20); Red Cell Distribution Width 18.4 % (11.8-14.3)
[2019-10-21 14:33] LABS: Albumin 3.4 g/dL (3.4-5.0); Calcium 8.3 mg/dL (8.5-10.1); Potassium 4.2 mmol/L (3.5-5.1)
[2019-10-21 14:37] LABS: BUN/Creatinine Ratio 23.1; Bilirubin, Total 0.5 mg/dL (0.2-1.0); Total Protein 7.5 g/dL (6.4-8.2)
== END | disposition home or self-care (01) ==
LOC: LAB 13:29
PROVIDERS: ATTEND Internal Medicine
DX: C34.2 Malignant neoplasm of middle lobe, bronchus or lung (principal)
CPT/HCPCS: 36415; 80053; 85025

== ENCOUNTER → 2019-11-04 | Outpatient (CLI) | payer OTHER ==
[~2019-11-04] MED LIST changes: -HYDR20TA19 PO; +HYDR20TA20 PO; -LORA0.5T12 PO; +LORA0.5T20 PO
[2019-11-04 09:22] LABS: Hemoglobin 9.8 g/dL (12.2-16.2); Mean Corpuscular Hemoglobin 34.7 pg (28.0-32.0); White Blood Cell 4.7 10^3/uL (4.4-10.8)
[2019-11-04 09:23] LABS: Hematocrit 29.5 % (36.0-46.0); Mean Corpuscular Hgb Conc. 33.2 g/dL (32.0-36.0); Mean Corpuscular Volume 104.6 fL (80.0-100.0); Platelet Count (auto) 110 10^3/uL (140-450); Red Blood Cells 2.82 10^6/uL (4.0-5.20); Red Cell Distribution Width 19.2 % (11.8-14.3)
[2019-11-04 09:28] LABS: Basophils % (manual) 0 (0.0-2.0); Blast Cells 0; Metamyelocytes % 0; Promyelocytes % 0; Reactive Lymphocytes 0
[2019-11-04 09:38] LABS: Albumin 3.5 g/dL (3.4-5.0); Calcium 8.4 mg/dL (8.5-10.1); Potassium 3.6 mmol/L (3.5-5.1)
[2019-11-04 09:41] LABS: BUN/Creatinine Ratio 17.3; Bilirubin, Total 0.3 mg/dL (0.2-1.0); Total Protein 7.1 g/dL (6.4-8.2)
[2019-11-04 09:58] LABS: Band Neutrophils % (manual) 4; Eosinophils % (manual) 2 (0-7); Lymphocytes % (manual) 37 (10.0-50.0); Monocytes % (manual) 19 (0-12); Myelocytes % 1
== END | disposition home or self-care (01) ==
LOC: LAB 09:06
PROVIDERS: ATTEND Internal Medicine
DX: C34.2 Malignant neoplasm of middle lobe, bronchus or lung (principal)
CPT/HCPCS: 36415; 80053; 83615; 85007; 85027

== ENCOUNTER → 2019-11-25 | Outpatient (CLI) | payer OTHER ==
[~2019-11-25] MED LIST changes: +HYDR20TA19 PO; -HYDR20TA20 PO
[2019-11-25 10:44] LABS: Hemoglobin 10.4 g/dL (12.2-16.2); Mean Corpuscular Hemoglobin 34.6 pg (28.0-32.0)
[2019-11-25 10:45] LABS: Hematocrit 31.4 % (36.0-46.0); Mean Corpuscular Hgb Conc. 33.1 g/dL (32.0-36.0); Mean Corpuscular Volume 104.5 fL (80.0-100.0); Platelet Count (auto) 182 10^3/uL (140-450)
[2019-11-25 10:46] LABS: Red Cell Distribution Width 20.9 % (11.8-14.3)
[2019-11-25 10:47] LABS: Band Neutrophils % (manual) 0; Basophils % (manual) 0 (0.0-2.0); Blast Cells 0; Promyelocytes % 0; Reactive Lymphocytes 0
[2019-11-25 11:05] LABS: Albumin 3.5 g/dL (3.4-5.0); Calcium 8.6 mg/dL (8.5-10.1); Potassium 3.9 mmol/L (3.5-5.1)
[2019-11-25 11:06] LABS: Eosinophils % (manual) 1 (0-7); Lymphocytes % (manual) 50 (10.0-50.0); Metamyelocytes % 1; Monocytes % (manual) 8 (0-12); Myelocytes % 2
[2019-11-25 11:08] LABS: BUN/Creatinine Ratio 16.4; Bilirubin, Total 0.2 mg/dL (0.2-1.0)
== END | disposition home or self-care (01) ==
LOC: LAB 10:26
PROVIDERS: ATTEND Internal Medicine
DX: C34.2 Malignant neoplasm of middle lobe, bronchus or lung (principal)
CPT/HCPCS: 36415; 80053; 83615; 85007; 85027

== ENCOUNTER → 2019-12-06 | Outpatient (CLI) | payer OTHER ==
[~2019-12-06] MED LIST changes: -HYDR20TA19 PO; +HYDR20TA20 PO
[2019-12-06 10:45] LABS: Basophils # (auto) 0 10 ^3/uL (0-0.2); Eosinophils # (auto) 0.1 10 ^3/uL (0-0.8); Hemoglobin 9.5 g/dL (12.2-16.2); Lymphocytes # (auto) 1.2 10 ^3/uL (0.4-5.4); Mean Corpuscular Volume 103.6 fL (80.0-100.0); Monocytes # (auto) 0.4 10 ^3/uL (0-1.3); Nucleated Red Blood Cells % 0.1 %
[2019-12-06 10:47] LABS: Basophils % (auto) 0.8 % (0.0-2.0); Eosinophils % (auto) 1.6 % (0.0-7.0); Hematocrit 28.3 % (36.0-46.0); Lymphocytes % (auto) 38.4 % (10.0-50.0); Mean Corpuscular Hemoglobin 34.9 pg (28.0-32.0); Mean Corpuscular Hgb Conc. 33.7 g/dL (32.0-36.0); Monocytes % (auto) 11.5 % (0.0-12.0); Neutrophils # (auto) 1.5 10 ^3/uL (1.6-8.6); Neutrophils % (auto) 47.7 % (37.0-80.0); Platelet Count (auto) 135 10^3/uL (140-450); Red Blood Cells 2.73 10^6/uL (4.0-5.20); Red Cell Distribution Width 19.1 % (11.8-14.3); White Blood Cell 3.2 10^3/uL (4.4-10.8)
[2019-12-06 13:13] LABS: Potassium 4.2 mmol/L (3.5-5.1)
[2019-12-06 13:26] LABS: Albumin 3.5 g/dL (3.4-5.0); BUN/Creatinine Ratio 20.7; Bilirubin, Total 0.3 mg/dL (0.2-1.0); Calcium 8.5 mg/dL (8.5-10.1); Total Protein 6.9 g/dL (6.4-8.2)
== END | disposition home or self-care (01) ==
LOC: LAB 10:17
PROVIDERS: ATTEND Internal Medicine
DX: C34.90 Malignant neoplasm of unspecified part of unspecified bronchus or lung (principal)
CPT/HCPCS: 36415; 80053; 83615; 85025

== ENCOUNTER → 2019-12-16 | Outpatient (CLI) | payer OTHER ==
[~2019-12-16] MED LIST changes: +HYDR20TA19 PO; -HYDR20TA20 PO; +LORA0.5T12 PO; -LORA0.5T20 PO
[2019-12-16 10:48] LABS: Hematocrit 31.5 % (36.0-46.0); Hemoglobin 10.6 g/dL (12.2-16.2); Mean Corpuscular Hemoglobin 35.2 pg (28.0-32.0); Mean Corpuscular Hgb Conc. 33.6 g/dL (32.0-36.0); Mean Corpuscular Volume 104.9 fL (80.0-100.0); Platelet Count (auto) 133 10^3/uL (140-450); Red Blood Cells 3.01 10^6/uL (4.0-5.20); White Blood Cell 5.5 10^3/uL (4.4-10.8)
[2019-12-16 10:49] LABS: Red Cell Distribution Width 20.5 % (11.8-14.3)
[2019-12-16 10:52] LABS: Basophils % (manual) 0 (0.0-2.0); Blast Cells 0; Eosinophils % (manual) 0 (0-7); Metamyelocytes % 0; Myelocytes % 0; Promyelocytes % 0; Reactive Lymphocytes 0
[2019-12-16 11:15] LABS: Albumin 3.7 g/dL (3.4-5.0); Calcium 8.9 mg/dL (8.5-10.1); Potassium 3.8 mmol/L (3.5-5.1)
[2019-12-16 11:19] LABS: BUN/Creatinine Ratio 19.7; Bilirubin, Total 0.3 mg/dL (0.2-1.0); Total Protein 7.1 g/dL (6.4-8.2)
[2019-12-16 11:52] LABS: Band Neutrophils % (manual) 1; Lymphocytes % (manual) 27 (10.0-50.0); Monocytes % (manual) 18 (0-12)
== END | disposition home or self-care (01) ==
LOC: LAB 10:33
PROVIDERS: ATTEND Internal Medicine
DX: C34.90 Malignant neoplasm of unspecified part of unspecified bronchus or lung (principal)
CPT/HCPCS: 36415; 80053; 83615; 85007; 85027

== ENCOUNTER → 2019-12-26 | Outpatient (CLI) | payer OTHER ==
[~2019-12-26] MED LIST changes: -HYDR20TA19 PO; +HYDR20TA20 PO; -LORA0.5T12 PO; +LORA0.5T20 PO
[2019-12-26 09:50] LABS: Hematocrit 29.7 % (36.0-46.0); Mean Corpuscular Hemoglobin 34.8 pg (28.0-32.0); Mean Corpuscular Hgb Conc. 33.7 g/dL (32.0-36.0); Mean Corpuscular Volume 103.4 fL (80.0-100.0); Platelet Count (auto) 112 10^3/uL (140-450); Red Blood Cells 2.88 10^6/uL (4.0-5.20); White Blood Cell 2.8 10^3/uL (4.4-10.8)
[2019-12-26 10:07] LABS: Band Neutrophils % (manual) 0; Basophils % (manual) 0 (0.0-2.0); Blast Cells 0; Eosinophils % (manual) 0 (0-7); Metamyelocytes % 0; Myelocytes % 0; Promyelocytes % 0; Reactive Lymphocytes 0
[2019-12-26 10:13] LABS: Lymphocytes % (manual) 65 (10.0-50.0); Monocytes % (manual) 2 (0-12)
[2019-12-26 10:59] LABS: Albumin 3.6 g/dL (3.4-5.0); Calcium 8.8 mg/dL (8.5-10.1); Potassium 3.6 mmol/L (3.5-5.1)
[2019-12-26 11:03] LABS: BUN/Creatinine Ratio 23.6; Bilirubin, Total 0.3 mg/dL (0.2-1.0); Total Protein 7.1 g/dL (6.4-8.2)
== END | disposition home or self-care (01) ==
LOC: LAB 09:22
PROVIDERS: ATTEND Internal Medicine
DX: C34.90 Malignant neoplasm of unspecified part of unspecified bronchus or lung (principal)
CPT/HCPCS: 36415; 80053; 83615; 85007; 85027

== ENCOUNTER → 2020-01-03 | Outpatient (CLI) | payer OTHER ==
[~2020-01-03] MED LIST changes: +HYDR20TA19 PO; -HYDR20TA20 PO
[2020-01-03 09:47] LABS: Hemoglobin 9.5 g/dL (12.2-16.2)
[2020-01-03 09:49] LABS: Mean Corpuscular Hemoglobin 35.1 pg (28.0-32.0); Mean Corpuscular Hgb Conc. 33.9 g/dL (32.0-36.0); Mean Corpuscular Volume 103.6 fL (80.0-100.0); Red Cell Distribution Width 19.4 % (11.8-14.3); White Blood Cell 3.1 10^3/uL (4.4-10.8)
[2020-01-03 09:55] LABS: Platelet Count (auto) 55 10^3/uL (140-450)
[2020-01-03 09:56] LABS: Band Neutrophils % (manual) 0; Basophils % (manual) 0 (0.0-2.0); Blast Cells 0; Eosinophils % (manual) 0 (0-7); Metamyelocytes % 0; Myelocytes % 0; Promyelocytes % 0; Reactive Lymphocytes 0
[2020-01-03 10:23] LABS: Albumin 3.6 g/dL (3.4-5.0); Calcium 8.6 mg/dL (8.5-10.1); Potassium 3.5 mmol/L (3.5-5.1)
[2020-01-03 10:26] LABS: BUN/Creatinine Ratio 14.3; Bilirubin, Total 0.4 mg/dL (0.2-1.0); Total Protein 7.3 g/dL (6.4-8.2)
[2020-01-03 10:31] LABS: Lymphocytes % (manual) 44 (10.0-50.0); Monocytes % (manual) 25 (0-12)
== END | disposition home or self-care (01) ==
LOC: LAB 09:28
PROVIDERS: ATTEND Internal Medicine
DX: C34.90 Malignant neoplasm of unspecified part of unspecified bronchus or lung (principal)
CPT/HCPCS: 36415; 80053; 83615; 85007; 85027

== ENCOUNTER → 2020-01-13 | Outpatient (CLI) | payer OTHER ==
[2020-01-13 10:01] LABS: Basophils # (auto) 0 10 ^3/uL (0-0.2); Eosinophils # (auto) 0 10 ^3/uL (0-0.8); Hemoglobin 10.4 g/dL (12.2-16.2); Lymphocytes # (auto) 1.2 10 ^3/uL (0.4-5.4); Neutrophils # (auto) 4.2 10 ^3/uL (1.6-8.6); White Blood Cell 6.5 10^3/uL (4.4-10.8)
[2020-01-13 10:03] LABS: Basophils % (auto) 0.3 % (0.0-2.0); Eosinophils % (auto) 0.6 % (0.0-7.0); Hematocrit 31.6 % (36.0-46.0); Lymphocytes % (auto) 18.3 % (10.0-50.0); Mean Corpuscular Hemoglobin 34.6 pg (28.0-32.0); Mean Corpuscular Hgb Conc. 32.9 g/dL (32.0-36.0); Mean Corpuscular Volume 104.9 fL (80.0-100.0); Monocytes % (auto) 15.4 % (0.0-12.0); Neutrophils % (auto) 65.4 % (37.0-80.0); Platelet Count (auto) 195 10^3/uL (140-450); Red Blood Cells 3.02 10^6/uL (4.0-5.20); Red Cell Distribution Width 19.3 % (11.8-14.3)
[2020-01-13 10:34] LABS: Albumin 3.2 g/dL (3.4-5.0); Calcium 8.7 mg/dL (8.5-10.1); Potassium 3.9 mmol/L (3.5-5.1)
[2020-01-13 10:36] LABS: BUN/Creatinine Ratio 15.4; Bilirubin, Total 0.4 mg/dL (0.2-1.0); Total Protein 7.2 g/dL (6.4-8.2)
== END | disposition home or self-care (01) ==
LOC: LAB 09:43
PROVIDERS: ATTEND Internal Medicine
DX: C34.90 Malignant neoplasm of unspecified part of unspecified bronchus or lung (principal)
CPT/HCPCS: 36415; 80053; 83615; 85025

== ENCOUNTER → 2020-02-04 | Outpatient (CLI) | payer OTHER ==
[~2020-02-04] MED LIST changes: -HYDR20TA19 PO; +HYDR20TA20 PO
[2020-02-04 09:12] LABS: Hemoglobin 10.3 g/dL (12.2-16.2)
[2020-02-04 09:14] LABS: Hematocrit 30.8 % (36.0-46.0); Mean Corpuscular Hemoglobin 35.1 pg (28.0-32.0); Mean Corpuscular Hgb Conc. 33.6 g/dL (32.0-36.0); Mean Corpuscular Volume 104.4 fL (80.0-100.0); Platelet Count (auto) 120 10^3/uL (140-450); Red Blood Cells 2.95 10^6/uL (4.0-5.20); Red Cell Distribution Width 18.6 % (11.8-14.3); White Blood Cell 3.7 10^3/uL (4.4-10.8)
[2020-02-04 09:19] LABS: Band Neutrophils % (manual) 0; Blast Cells 0; Myelocytes % 0; Promyelocytes % 0; Reactive Lymphocytes 0
[2020-02-04 09:27] LABS: Albumin 3.5 g/dL (3.4-5.0); Calcium 8.7 mg/dL (8.5-10.1); Potassium 3.3 mmol/L (3.5-5.1)
[2020-02-04 09:34] LABS: BUN/Creatinine Ratio 17.1; Bilirubin, Total 0.3 mg/dL (0.2-1.0); Total Protein 6.9 g/dL (6.4-8.2)
[2020-02-04 09:57] LABS: Basophils % (manual) 1 (0.0-2.0); Eosinophils % (manual) 3 (0-7); Lymphocytes % (manual) 61 (10.0-50.0); Metamyelocytes % 1; Monocytes % (manual) 12 (0-12)
== END | disposition home or self-care (01) ==
LOC: LAB 08:51
PROVIDERS: ATTEND Internal Medicine
DX: C34.90 Malignant neoplasm of unspecified part of unspecified bronchus or lung (principal); E11.42 Type 2 diabetes mellitus with diabetic polyneuropathy; E03.9 Hypothyroidism, unspecified; E78.5 Hyperlipidemia, unspecified
CPT/HCPCS: 36415; 80053; 80061; 83036; 83615; 84439; 84443; 85007; 85027

== ENCOUNTER → 2020-02-10 | Outpatient (CLI) | payer OTHER ==
[2020-02-10 08:14] LABS: Basophils # (auto) 0 10 ^3/uL (0-0.2); Eosinophils # (auto) 0 10 ^3/uL (0-0.8); Hematocrit 31.4 % (36.0-46.0); Hemoglobin 10.6 g/dL (12.2-16.2); Lymphocytes # (auto) 2.3 10 ^3/uL (0.4-5.4); Monocytes # (auto) 0.9 10 ^3/uL (0-1.3); Neutrophils # (auto) 2.2 10 ^3/uL (1.6-8.6); Nucleated Red Blood Cells % 0.2 %
[2020-02-10 08:18] LABS: Basophils % (auto) 0.5 % (0.0-2.0); Eosinophils % (auto) 0.7 % (0.0-7.0); Lymphocytes % (auto) 41.5 % (10.0-50.0); Mean Corpuscular Hemoglobin 35.3 pg (28.0-32.0); Mean Corpuscular Hgb Conc. 33.7 g/dL (32.0-36.0); Mean Corpuscular Volume 104.8 fL (80.0-100.0); Monocytes % (auto) 16.9 % (0.0-12.0); Neutrophils % (auto) 40.4 % (37.0-80.0); Platelet Count (auto) 220 10^3/uL (140-450); Red Cell Distribution Width 18.9 % (11.8-14.3); White Blood Cell 5.5 10^3/uL (4.4-10.8)
[2020-02-10 08:37] LABS: Potassium 3.6 mmol/L (3.5-5.1)
[2020-02-10 08:52] LABS: Albumin 3.4 g/dL (3.4-5.0); Bilirubin, Total 0.3 mg/dL (0.2-1.0); Calcium 8.7 mg/dL (8.5-10.1)
== END | disposition home or self-care (01) ==
LOC: LAB 07:38
PROVIDERS: ATTEND Internal Medicine
DX: C34.90 Malignant neoplasm of unspecified part of unspecified bronchus or lung (principal); Z88.0 Allergy status to penicillin; Z88.1 Allergy status to other antibiotic agents
CPT/HCPCS: 36415; 80053; 83615; 85025

== ENCOUNTER → 2020-02-24 | Outpatient (CLI) | payer OTHER ==
[2020-02-24 09:52] LABS: Basophils # (auto) 0 10 ^3/uL (0-0.2); Eosinophils # (auto) 0.2 10 ^3/uL (0-0.8)
[2020-02-24 09:55] LABS: Basophils % (auto) 0.6 % (0.0-2.0); Eosinophils % (auto) 2.3 % (0.0-7.0); Hematocrit 36.9 % (36.0-46.0); Hemoglobin 12.2 g/dL (12.2-16.2); Lymphocytes # (auto) 2.6 10 ^3/uL (0.4-5.4); Lymphocytes % (auto) 35.2 % (10.0-50.0); Mean Corpuscular Hemoglobin 34.2 pg (28.0-32.0); Mean Corpuscular Hgb Conc. 32.9 g/dL (32.0-36.0); Mean Corpuscular Volume 104.1 fL (80.0-100.0); Monocytes # (auto) 0.5 10 ^3/uL (0-1.3); Monocytes % (auto) 7.4 % (0.0-12.0); Neutrophils % (auto) 54.5 % (37.0-80.0); Platelet Count (auto) 301 10^3/uL (140-450); Red Blood Cells 3.55 10^6/uL (4.0-5.20); Red Cell Distribution Width 17.3 % (11.8-14.3); White Blood Cell 7.3 10^3/uL (4.4-10.8)
[2020-02-24 11:02] LABS: Albumin 3.4 g/dL (3.4-5.0); Calcium 9.2 mg/dL (8.5-10.1); Potassium 3.7 mmol/L (3.5-5.1)
[2020-02-24 11:06] LABS: BUN/Creatinine Ratio 14.9; Bilirubin, Total 0.3 mg/dL (0.2-1.0); Total Protein 7.2 g/dL (6.4-8.2)
== END | disposition home or self-care (01) ==
LOC: LAB 09:21
PROVIDERS: ATTEND Internal Medicine
DX: C34.90 Malignant neoplasm of unspecified part of unspecified bronchus or lung (principal)
CPT/HCPCS: 36415; 80053; 83615; 85025

== ENCOUNTER → 2020-03-03 | Outpatient (CLI) | payer OTHER ==
[2020-03-03 08:45] LABS: Basophils # (auto) 0 10 ^3/uL (0-0.2); Eosinophils # (auto) 0.2 10 ^3/uL (0-0.8); Neutrophils # (auto) 4.2 10 ^3/uL (1.6-8.6); White Blood Cell 7.2 10^3/uL (4.4-10.8)
[2020-03-03 08:47] LABS: Basophils % (auto) 0.4 % (0.0-2.0); Hematocrit 34.5 % (36.0-46.0); Hemoglobin 11.7 g/dL (12.2-16.2); Lymphocytes % (auto) 28.3 % (10.0-50.0); Mean Corpuscular Hemoglobin 34.9 pg (28.0-32.0); Mean Corpuscular Volume 102.5 fL (80.0-100.0); Monocytes # (auto) 0.7 10 ^3/uL (0-1.3); Monocytes % (auto) 9.4 % (0.0-12.0); Neutrophils % (auto) 58.9 % (37.0-80.0); Nucleated Red Blood Cells % 0.1 %; Platelet Count (auto) 275 10^3/uL (140-450); Red Blood Cells 3.36 10^6/uL (4.0-5.20); Red Cell Distribution Width 17.2 % (11.8-14.3)
[2020-03-03 09:05] LABS: Albumin 3.4 g/dL (3.4-5.0); Calcium 8.5 mg/dL (8.5-10.1); Potassium 3.6 mmol/L (3.5-5.1)
[2020-03-03 09:09] LABS: BUN/Creatinine Ratio 17.2; Bilirubin, Total 0.4 mg/dL (0.2-1.0); Total Protein 6.8 g/dL (6.4-8.2)
== END | disposition home or self-care (01) ==
LOC: LAB 08:27
PROVIDERS: ATTEND Internal Medicine
DX: C34.90 Malignant neoplasm of unspecified part of unspecified bronchus or lung (principal)
CPT/HCPCS: 36415; 80053; 83615; 85025

== ENCOUNTER → 2020-03-14 | Outpatient (CLI) | payer OTHER ==
[2020-03-14 10:08] LABS: Basophils # (auto) 0 10 ^3/uL (0-0.2); Basophils % (auto) 0.2 % (0.0-2.0); Hematocrit 35.1 % (36.0-46.0); Hemoglobin 11.8 g/dL (12.2-16.2); Lymphocytes # (auto) 2.5 10 ^3/uL (0.4-5.4); Mean Corpuscular Hgb Conc. 33.7 g/dL (32.0-36.0); Monocytes # (auto) 0.2 10 ^3/uL (0-1.3); Neutrophils # (auto) 3.5 10 ^3/uL (1.6-8.6); Platelet Count (auto) 312 10^3/uL (140-450)
[2020-03-14 10:11] LABS: Eosinophils # (auto) 0.1 10 ^3/uL (0-0.8); Eosinophils % (auto) 2.1 % (0.0-7.0); Lymphocytes % (auto) 38.9 % (10.0-50.0); Mean Corpuscular Hemoglobin 34.9 pg (28.0-32.0); Mean Corpuscular Volume 103.4 fL (80.0-100.0); Monocytes % (auto) 3.2 % (0.0-12.0); Neutrophils % (auto) 55.6 % (37.0-80.0); Nucleated Red Blood Cells % 0.1 %; Red Blood Cells 3.39 10^6/uL (4.0-5.20); Red Cell Distribution Width 17.1 % (11.8-14.3); White Blood Cell 6.3 10^3/uL (4.4-10.8)
[2020-03-14 10:29] LABS: Albumin 3.5 g/dL (3.4-5.0); Calcium 8.5 mg/dL (8.5-10.1); Potassium 3.6 mmol/L (3.5-5.1)
[2020-03-14 10:32] LABS: BUN/Creatinine Ratio 20.3; Bilirubin, Total 0.3 mg/dL (0.2-1.0)
== END | disposition home or self-care (01) ==
LOC: LAB 09:45
PROVIDERS: ATTEND Internal Medicine
DX: C34.90 Malignant neoplasm of unspecified part of unspecified bronchus or lung (principal); Z88.1 Allergy status to other antibiotic agents; Z88.0 Allergy status to penicillin
CPT/HCPCS: 36415; 80053; 83615; 85025

== ENCOUNTER → 2020-03-23 | Outpatient (CLI) | payer OTHER ==
[2020-03-23 10:34] LABS: Basophils # (auto) 0 10 ^3/uL (0-0.2); Basophils % (auto) 0.3 % (0.0-2.0); Eosinophils # (auto) 0.2 10 ^3/uL (0-0.8); Hematocrit 34.5 % (36.0-46.0); Hemoglobin 11.8 g/dL (12.2-16.2); Lymphocytes # (auto) 1.6 10 ^3/uL (0.4-5.4); Monocytes # (auto) 0.7 10 ^3/uL (0-1.3)
[2020-03-23 10:35] LABS: Eosinophils % (auto) 3.5 % (0.0-7.0); Lymphocytes % (auto) 29.6 % (10.0-50.0); Mean Corpuscular Hemoglobin 35.3 pg (28.0-32.0); Mean Corpuscular Hgb Conc. 34.1 g/dL (32.0-36.0); Mean Corpuscular Volume 103.2 fL (80.0-100.0); Monocytes % (auto) 14.1 % (0.0-12.0); Neutrophils # (auto) 2.8 10 ^3/uL (1.6-8.6); Neutrophils % (auto) 52.5 % (37.0-80.0); Nucleated Red Blood Cells % 0.2 %; Platelet Count (auto) 268 10^3/uL (140-450); Red Blood Cells 3.34 10^6/uL (4.0-5.20); Red Cell Distribution Width 17.5 % (11.8-14.3); White Blood Cell 5.3 10^3/uL (4.4-10.8)
[2020-03-23 11:29] LABS: Potassium 3.5 mmol/L (3.5-5.1)
[2020-03-23 11:46] LABS: Albumin 3.1 g/dL (3.4-5.0); BUN/Creatinine Ratio 12.1; Bilirubin, Total 0.2 mg/dL (0.2-1.0); Calcium 8.1 mg/dL (8.5-10.1); Total Protein 5.9 g/dL (6.4-8.2)
== END | disposition home or self-care (01) ==
LOC: LAB 10:19
PROVIDERS: ATTEND Internal Medicine
DX: C34.90 Malignant neoplasm of unspecified part of unspecified bronchus or lung (principal)
CPT/HCPCS: 36415; 80053; 83615; 85025; 87045; 87427

== ENCOUNTER → 2020-03-30 | Outpatient (CLI) | payer OTHER ==
[2020-03-30 09:51] LABS: Basophils # (auto) 0 10 ^3/uL (0-0.2); Basophils % (auto) 0.4 % (0.0-2.0); Eosinophils # (auto) 0.3 10 ^3/uL (0-0.8); Eosinophils % (auto) 5.4 % (0.0-7.0); Hematocrit 34.4 % (36.0-46.0); Hemoglobin 11.5 g/dL (12.2-16.2); Lymphocytes # (auto) 1.8 10 ^3/uL (0.4-5.4); Lymphocytes % (auto) 37.6 % (10.0-50.0); Mean Corpuscular Hemoglobin 34.8 pg (28.0-32.0); Mean Corpuscular Hgb Conc. 33.4 g/dL (32.0-36.0); Mean Corpuscular Volume 104.2 fL (80.0-100.0); Monocytes # (auto) 0.6 10 ^3/uL (0-1.3); Monocytes % (auto) 12.1 % (0.0-12.0); Neutrophils # (auto) 2.2 10 ^3/uL (1.6-8.6); Neutrophils % (auto) 44.5 % (37.0-80.0); Nucleated Red Blood Cells % 0.2 %; Platelet Count (auto) 268 10^3/uL (140-450); Red Cell Distribution Width 17.6 % (11.8-14.3); White Blood Cell 4.9 10^3/uL (4.4-10.8)
[2020-03-30 10:08] LABS: Albumin 3.3 g/dL (3.4-5.0); Calcium 8.5 mg/dL (8.5-10.1); Potassium 3.7 mmol/L (3.5-5.1)
[2020-03-30 10:12] LABS: BUN/Creatinine Ratio 14.5; Bilirubin, Total 0.2 mg/dL (0.2-1.0); Total Protein 6.2 g/dL (6.4-8.2)
== END | disposition home or self-care (01) ==
LOC: LAB 09:22
PROVIDERS: ATTEND Internal Medicine
DX: C34.90 Malignant neoplasm of unspecified part of unspecified bronchus or lung (principal)
CPT/HCPCS: 36415; 80053; 83615; 85025

== ENCOUNTER → 2020-04-06 | Outpatient (CLI) | payer OTHER ==
[2020-04-06 10:36] LABS: Basophils # (auto) 0 10 ^3/uL (0-0.2); Eosinophils # (auto) 0.1 10 ^3/uL (0-0.8); Lymphocytes % (auto) 21.7 % (10.0-50.0); Monocytes # (auto) 0.9 10 ^3/uL (0-1.3); Neutrophils # (auto) 4.2 10 ^3/uL (1.6-8.6); White Blood Cell 6.7 10^3/uL (4.4-10.8)
[2020-04-06 10:38] LABS: Basophils % (auto) 0.3 % (0.0-2.0); Eosinophils % (auto) 1.8 % (0.0-7.0); Hematocrit 37.4 % (36.0-46.0); Hemoglobin 12.7 g/dL (12.2-16.2); Lymphocytes # (auto) 1.5 10 ^3/uL (0.4-5.4); Mean Corpuscular Hemoglobin 35.3 pg (28.0-32.0); Mean Corpuscular Hgb Conc. 33.9 g/dL (32.0-36.0); Mean Corpuscular Volume 104.3 fL (80.0-100.0); Neutrophils % (auto) 63.2 % (37.0-80.0); Nucleated Red Blood Cells % 0.1 %; Platelet Count (auto) 270 10^3/uL (140-450); Red Blood Cells 3.59 10^6/uL (4.0-5.20); Red Cell Distribution Width 17.7 % (11.8-14.3)
[2020-04-06 11:36] LABS: Albumin 3.5 g/dL (3.4-5.0); Calcium 8.9 mg/dL (8.5-10.1)
[2020-04-06 11:40] LABS: BUN/Creatinine Ratio 14.7; Bilirubin, Total 0.3 mg/dL (0.2-1.0); Total Protein 6.9 g/dL (6.4-8.2)
== END | disposition home or self-care (01) ==
LOC: LAB 10:25
PROVIDERS: ATTEND Internal Medicine
DX: C34.90 Malignant neoplasm of unspecified part of unspecified bronchus or lung (principal)
CPT/HCPCS: 36415; 80053; 83615; 85025

== ENCOUNTER → 2020-04-13 | Outpatient (CLI) | payer OTHER ==
[2020-04-13 10:33] LABS: Basophils # (auto) 0 10 ^3/uL (0-0.2); Eosinophils # (auto) 0.1 10 ^3/uL (0-0.8); Mean Corpuscular Hemoglobin 34.8 pg (28.0-32.0); Monocytes # (auto) 0.7 10 ^3/uL (0-1.3); Neutrophils # (auto) 3.2 10 ^3/uL (1.6-8.6); Red Blood Cells 3.44 10^6/uL (4.0-5.20)
[2020-04-13 10:35] LABS: Basophils % (auto) 0.3 % (0.0-2.0); Eosinophils % (auto) 1.8 % (0.0-7.0); Hematocrit 35.8 % (36.0-46.0); Lymphocytes % (auto) 19.7 % (10.0-50.0); Mean Corpuscular Hgb Conc. 33.4 g/dL (32.0-36.0); Monocytes % (auto) 13.9 % (0.0-12.0); Neutrophils % (auto) 64.3 % (37.0-80.0); Nucleated Red Blood Cells % 0.1 %; Platelet Count (auto) 240 10^3/uL (140-450); Red Cell Distribution Width 17.8 % (11.8-14.3); White Blood Cell 4.9 10^3/uL (4.4-10.8)
[2020-04-13 11:01] LABS: Albumin 3.5 g/dL (3.4-5.0); Calcium 8.7 mg/dL (8.5-10.1); Potassium 3.7 mmol/L (3.5-5.1)
[2020-04-13 11:04] LABS: BUN/Creatinine Ratio 10.6; Bilirubin, Total 0.2 mg/dL (0.2-1.0); Total Protein 6.6 g/dL (6.4-8.2)
== END | disposition home or self-care (01) ==
LOC: LAB 10:11
PROVIDERS: ATTEND Internal Medicine
DX: C34.90 Malignant neoplasm of unspecified part of unspecified bronchus or lung (principal)
CPT/HCPCS: 36415; 80053; 83615; 85025

== ENCOUNTER → 2020-04-20 | Outpatient (CLI) | payer OTHER ==
[2020-04-20 09:49] LABS: Hemoglobin 11.9 g/dL (12.2-16.2); Mean Corpuscular Hemoglobin 34.1 pg (28.0-32.0); Mean Corpuscular Hgb Conc. 33.1 g/dL (32.0-36.0); Mean Corpuscular Volume 103.1 fL (80.0-100.0); Platelet Count (auto) 224 10^3/uL (140-450); Red Cell Distribution Width 17.8 % (11.8-14.3); White Blood Cell 4.6 10^3/uL (4.4-10.8)
[2020-04-20 09:53] LABS: Basophils % (manual) 0 (0.0-2.0); Blast Cells 0; Promyelocytes % 0; Reactive Lymphocytes 0
[2020-04-20 10:37] LABS: Calcium 8.9 mg/dL (8.5-10.1); Potassium 3.6 mmol/L (3.5-5.1)
[2020-04-20 10:54] LABS: Albumin 3.6 g/dL (3.4-5.0); Bilirubin, Total 0.4 mg/dL (0.2-1.0); Total Protein 6.6 g/dL (6.4-8.2)
[2020-04-20 10:57] LABS: Band Neutrophils % (manual) 1; Eosinophils % (manual) 1 (0-7); Lymphocytes % (manual) 46 (10.0-50.0); Metamyelocytes % 3; Monocytes % (manual) 7 (0-12); Myelocytes % 1
== END | disposition home or self-care (01) ==
LOC: LAB 09:30
PROVIDERS: ATTEND Internal Medicine
DX: C34.90 Malignant neoplasm of unspecified part of unspecified bronchus or lung (principal); Z88.0 Allergy status to penicillin; Z88.1 Allergy status to other antibiotic agents
CPT/HCPCS: 36415; 80053; 83615; 85007; 85027

== ENCOUNTER → 2020-04-27 | Outpatient (CLI) | payer OTHER ==
[2020-04-27 11:09] LABS: Basophils # (auto) 0 10 ^3/uL (0-0.2); Basophils % (auto) 0.5 % (0.0-2.0); Eosinophils # (auto) 0.1 10 ^3/uL (0-0.8); Eosinophils % (auto) 1.7 % (0.0-7.0); Hematocrit 34.3 % (36.0-46.0); Hemoglobin 12.1 g/dL (12.2-16.2); Lymphocytes # (auto) 0.9 10 ^3/uL (0.4-5.4); Lymphocytes % (auto) 22.4 % (10.0-50.0); Mean Corpuscular Hemoglobin 36.6 pg (28.0-32.0); Mean Corpuscular Hgb Conc. 35.2 g/dL (32.0-36.0); Mean Corpuscular Volume 104.1 fL (80.0-100.0); Monocytes # (auto) 0.7 10 ^3/uL (0-1.3); Monocytes % (auto) 16.8 % (0.0-12.0); Neutrophils # (auto) 2.5 10 ^3/uL (1.6-8.6); Neutrophils % (auto) 58.6 % (37.0-80.0); Nucleated Red Blood Cells % 0.2 %; Platelet Count (auto) 204 10^3/uL (140-450); Red Blood Cells 3.29 10^6/uL (4.0-5.20); Red Cell Distribution Width 17.6 % (11.8-14.3); White Blood Cell 4.2 10^3/uL (4.4-10.8)
[2020-04-27 11:48] LABS: Albumin 3.3 g/dL (3.4-5.0); Calcium 8.3 mg/dL (8.5-10.1); Potassium 3.9 mmol/L (3.5-5.1)
[2020-04-27 11:51] LABS: BUN/Creatinine Ratio 13.1; Bilirubin, Total 0.4 mg/dL (0.2-1.0); Total Protein 6.2 g/dL (6.4-8.2)
== END | disposition home or self-care (01) ==
LOC: LAB 10:47
PROVIDERS: ATTEND Internal Medicine
DX: C34.90 Malignant neoplasm of unspecified part of unspecified bronchus or lung (principal); Z88.0 Allergy status to penicillin; Z88.1 Allergy status to other antibiotic agents
CPT/HCPCS: 36415; 80053; 83615; 85025

== ENCOUNTER 2020-05-02 11:08 | Inpatient (IN) | payer OTHER ==
[~2020-05-02] VITALS: Ht 170.2 cm; Wt 81.3 kg
[2020-05-02] MEDS ORDERED: SODIUM CHLORIDE 0.9% 1,000 ML IV ONE ×2 (11:30→14:15)
[2020-05-02 11:51] LABS: Basophils # (auto) 0 10 ^3/uL (0-0.2); Eosinophils # (auto) 0 10 ^3/uL (0-0.8); Eosinophils % (auto) 0.2 % (0.0-7.0); Monocytes # (auto) 0.2 10 ^3/uL (0-1.3); White Blood Cell 5.1 10^3/uL (4.4-10.8)
[2020-05-02 11:54] LABS: Basophils % (auto) 0.1 % (0.0-2.0); Hematocrit 32.4 % (36.0-46.0); Hemoglobin 11.3 g/dL (12.2-16.2); Lymphocytes # (auto) 0.7 10 ^3/uL (0.4-5.4); Lymphocytes % (auto) 13.6 % (10.0-50.0); Mean Corpuscular Hemoglobin 35.3 pg (28.0-32.0); Mean Corpuscular Hgb Conc. 34.9 g/dL (32.0-36.0); Mean Corpuscular Volume 101.1 fL (80.0-100.0); Monocytes % (auto) 4.3 % (0.0-12.0); Neutrophils # (auto) 4.2 10 ^3/uL (1.6-8.6); Neutrophils % (auto) 81.8 % (37.0-80.0); Nucleated Red Blood Cells % 0.1 %; Platelet Count (auto) 190 10^3/uL (140-450); Red Cell Distribution Width 17.9 % (11.8-14.3)
[2020-05-02 12:22] LABS: Partial Thromboplastin Time 22.4 sec (23.0-31.2)
[2020-05-02 13:14] LABS: Albumin 3.6 g/dL (3.4-5.0); Anion Gap 11 (5-15); BUN/Creatinine Ratio 11.1; Blood Urea Nitrogen 7 mg/dL (7-18); Calcium 7.8 mg/dL (8.5-10.1); Carbon Dioxide 24 mmol/L (21-32); Chloride 79 mmol/L (98-107); GFR African American 122 mL/min; GFR Non-African American 100 mL/min; Glucose 163 mg/dL (74-106); Potassium 3.8 mmol/L (3.5-5.1)
[2020-05-02 13:19] LABS: Alanine Aminotransferase 76 U/L (13-56); Alkaline Phosphatase 92 U/L (45-117); Aspartate Aminotransferase 46 U/L (15-37); Bilirubin, Total 0.8 mg/dL (0.2-1.0); Total Protein 6.7 g/dL (6.4-8.2)
[2020-05-02 13:33] LABS: Sodium 114 mmol/L (136-145)
[2020-05-02] MEDS ORDERED: SODIUM CHL 3% 500 ML IV ONE (14:00)
[2020-05-02] MEDS ORDERED: NITROGLYCERIN 0.4 MG SL TAB SL PRN (14:15)
[2020-05-02] MEDS ORDERED: MORPHINE SULF INJ 2 MG/ML SYRINGE 1ML IV PRN ×5 (14:15→19:00)
[2020-05-02] MEDS ORDERED: ACETAMINOPHEN 500 MG TAB PO PRN (14:15)
[2020-05-02] MEDS ORDERED: DEXTROSE (50%) 50ML SYRG IV PRN (14:15)
[2020-05-02] MEDS ORDERED: ALBUTEROL SULF 2.5 MG/0.5ML(0.5%) NEB SOLN NEB PRN (14:15)
[2020-05-02] MEDS ORDERED: HYDROcodone-ACET 5/325MG TAB PO PRN ×3 (14:15→19:00)
[2020-05-02 15:15] VITALS: BP 143/90
[2020-05-02 15:51] VITALS: BP 143/90
[2020-05-02] MEDS: ACCU-CHEK COMFORT CURVE STRIP VI SCH ×2 (17:00→23:43)
[2020-05-02] MEDS: InsuLIN REG 1unit/0.01ml Soln (100units/ml) SC SCH ×2 (17:00→22:00)
[2020-05-02] MEDS: LORazepam 0.5 MG TAB PO PRN (17:41)
[2020-05-02 20:01] VITALS: BP 142/90
[2020-05-02] MEDS: LISINOPRIL 20 MG TAB PO SCH (23:30)
[2020-05-03] VITALS (7 sets, daily range): BP systolic 103–135; BP diastolic 68–87
[2020-05-03] MEDS: LORazepam 0.5 MG TAB PO PRN ×3 (03:21→22:24)
[2020-05-03] MEDS: InsuLIN REG 1unit/0.01ml Soln (100units/ml) SC SCH ×4 (07:00→21:35)
[2020-05-03] MEDS: ACCU-CHEK COMFORT CURVE STRIP VI SCH ×4 (07:00→21:35)
[2020-05-03 08:02] LABS: Basophils # (auto) 0 10 ^3/uL (0-0.2); Basophils % (auto) 0.3 % (0.0-2.0); Eosinophils # (auto) 0 10 ^3/uL (0-0.8); Monocytes # (auto) 0.2 10 ^3/uL (0-1.3); Platelet Count (auto) 162 10^3/uL (140-450)
[2020-05-03 08:03] LABS: Eosinophils % (auto) 0.7 % (0.0-7.0); Hematocrit 30.1 % (36.0-46.0); Hemoglobin 10.4 g/dL (12.2-16.2); Lymphocytes # (auto) 0.7 10 ^3/uL (0.4-5.4); Lymphocytes % (auto) 21.8 % (10.0-50.0); Mean Corpuscular Hgb Conc. 34.4 g/dL (32.0-36.0); Mean Corpuscular Volume 101.9 fL (80.0-100.0); Monocytes % (auto) 7.5 % (0.0-12.0); Neutrophils # (auto) 2.3 10 ^3/uL (1.6-8.6); Neutrophils % (auto) 69.7 % (37.0-80.0); Nucleated Red Blood Cells % 0.1 %; Red Blood Cells 2.96 10^6/uL (4.0-5.20); Red Cell Distribution Width 18.1 % (11.8-14.3); White Blood Cell 3.3 10^3/uL (4.4-10.8)
[2020-05-03 08:13] LABS: Potassium 3.5 mmol/L (3.5-5.1)
[2020-05-03 08:20] LABS: BUN/Creatinine Ratio 9.1; Bilirubin, Total 0.5 mg/dL (0.2-1.0); Calcium 7.9 mg/dL (8.5-10.1); Total Protein 5.6 g/dL (6.4-8.2)
[2020-05-03] MEDS: PANTOPRAZOLE 40 MG TAB PO SCH (09:36)
[2020-05-03] MEDS: LEVOTHYROXINE SODIUM 88 MCG TAB PO SCH (09:36)
[2020-05-03] MEDS: LISINOPRIL 20 MG TAB PO SCH ×2 (09:37→12:45)
[2020-05-03] MEDS ORDERED: traMADol HCL 50 MG TAB PO PRN (13:00)
[2020-05-03 14:07] LABS: Urine Bacteria NONE SEEN /hpf (None Seen); Urine Blood Negative /uL (Negative); Urine Mucus FEW (None Seen); Urine Specific Gravity 1.006 (1.001-1.035); Urine WBC 1 /hpf (0 - 5)
[2020-05-03 14:22] LABS: Protein, Urine 5.5 mg/dL (0.0-11.9)
[2020-05-03 17:56] LABS: BUN/Creatinine Ratio 6.6; Calcium 7.9 mg/dL (8.5-10.1); Potassium 3.3 mmol/L (3.5-5.1)
[2020-05-03] MEDS: ALBUTEROL SULF 2.5 MG/0.5ML(0.5%) NEB SOLN NEB SCH ×2 (18:00→22:00)
[2020-05-03] MEDS ORDERED: POTASSIUM CHL 20 Meq TABLET PO ONE (18:45)
[2020-05-03] MEDS ORDERED: GABA300C10 PO (18:59)
[2020-05-03] MEDS ORDERED: DIPH2.5T73 PO (18:59)
[2020-05-03] MEDS ORDERED: HYDR10T PO (18:59)
[2020-05-03] MEDS ORDERED: ALBU2TAB4 PO (18:59)
[2020-05-03] MEDS ORDERED: DIPHENOXYLATE W/ATROPINE 2.5 MG TAB PO PRN (19:00)
[2020-05-03] MEDS: ONDANSETRON HCL 4 MG/2 ML VIAL IV PRN (22:24)
[2020-05-03 22:34] LABS: Calcium 8.1 mg/dL (8.5-10.1); Potassium 3.6 mmol/L (3.5-5.1)
[2020-05-04 01:30] VITALS: BP 102/55
[2020-05-04 05:30] LABS: BUN/Creatinine Ratio 6.8; Calcium 8.1 mg/dL (8.5-10.1); Potassium 3.5 mmol/L (3.5-5.1)
[2020-05-04] MEDS: InsuLIN REG 1unit/0.01ml Soln (100units/ml) SC SCH ×4 (05:57→22:00)
[2020-05-04] MEDS: ACCU-CHEK COMFORT CURVE STRIP VI SCH ×4 (05:57→22:00)
[2020-05-04] MEDS: IPRATROPIUM BROM 0.5 MG/2.5ML INH SOL NEB PRN ×4 (06:32→19:30)
[2020-05-04] MEDS: ALBUTEROL SULF 2.5 MG/0.5ML(0.5%) NEB SOLN NEB SCH ×5 (06:32→22:44)
[2020-05-04 08:00] VITALS: BP 98/47
[2020-05-04] MEDS: ONDANSETRON HCL 4 MG/2 ML VIAL IV PRN (08:15)
[2020-05-04] MEDS: LEVOTHYROXINE SODIUM 88 MCG TAB PO SCH (08:16)
[2020-05-04] MEDS: LISINOPRIL 20 MG TAB PO SCH (10:00)
[2020-05-04] MEDS: PANTOPRAZOLE 40 MG TAB PO SCH (10:19)
[2020-05-04] MEDS: GABAPENTIN 300 MG CAP PO SCH ×2 (10:19→21:49)
[2020-05-04] MEDS: DIPHENOXYLATE W/ATROPINE 2.5 MG TAB PO PRN (11:15)
[2020-05-04 12:00] VITALS: BP 103/79
[2020-05-04] MEDS ORDERED: IOHEXOL 300 MG/ML 100ML BOTTLE IJ ONE (12:41)
[2020-05-04] MEDS ORDERED: SODIUM CHL 3% 150 ML IV ONE (15:30)
[2020-05-04 15:52] LABS: BUN/Creatinine Ratio 8.6; Calcium 7.8 mg/dL (8.5-10.1); Potassium 3.1 mmol/L (3.5-5.1)
[2020-05-04 16:00] VITALS: BP 100/60
[2020-05-04 20:00] VITALS: BP 110/61
[2020-05-04] MEDS: ALPRAZolam 0.25 MG TAB PO PRN (21:49)
[2020-05-04 22:00] VITALS: BP 107/62
[2020-05-04 22:37] LABS: Calcium 8.1 mg/dL (8.5-10.1); Potassium 3.2 mmol/L (3.5-5.1)
[2020-05-04 22:39] LABS: BUN/Creatinine Ratio 6.3
[2020-05-05] VITALS (33 sets, daily range): BP systolic 69–123; BP diastolic 46–73
[2020-05-05] MEDS: ALBUTEROL SULF 2.5 MG/0.5ML(0.5%) NEB SOLN NEB SCH ×4 (02:00→09:57)
[2020-05-05] MEDS: IPRATROPIUM BROM 0.5 MG/2.5ML INH SOL NEB PRN ×2 (05:42→09:51)
[2020-05-05 06:43] LABS: BUN/Creatinine Ratio 7.7; Potassium 3.4 mmol/L (3.5-5.1)
[2020-05-05] MEDS: LEVOTHYROXINE SODIUM 88 MCG TAB PO SCH (06:54)
[2020-05-05] MEDS: ACCU-CHEK COMFORT CURVE STRIP VI SCH ×4 (06:55→22:02)
[2020-05-05] MEDS: InsuLIN REG 1unit/0.01ml Soln (100units/ml) SC SCH ×4 (06:57→22:15)
[2020-05-05] MEDS: TRELEGY IN SCH (10:00)
[2020-05-05] MEDS: GABAPENTIN 300 MG CAP PO SCH ×2 (10:58→22:03)
[2020-05-05] MEDS: traMADol HCL 50 MG TAB PO PRN (10:58)
[2020-05-05] MEDS: PANTOPRAZOLE 40 MG TAB PO SCH (10:59)
[2020-05-05] MEDS: LISINOPRIL 20 MG TAB PO SCH (11:01)
[2020-05-05] MEDS: ONDANSETRON HCL 4 MG/2 ML VIAL IV PRN (13:10)
[2020-05-05] MEDS: POTASSIUM CHL 20MEQ/100ML 100 ML IV SCH ×2 (13:10→22:01)
[2020-05-05] MEDS: ACETAMINOPHEN 500 MG TAB PO PRN (13:11)
[2020-05-05] MEDS: SODIUM CHLORIDE 1 GM TAB PO SCH ×3 (14:00→22:03)
[2020-05-05] MEDS ORDERED: SODIUM CHLORIDE 0.9% 1,000 ML IV ONE ×2 (14:15→15:04)
[2020-05-05] MEDS: NOREPINEPHRINE 8 MG/250ML KIT 250 ML IV SCH (15:30)
[2020-05-05 15:55] LABS: Red Cell Distribution Width 17.8 % (11.8-14.3)
[2020-05-05 15:56] LABS: Hematocrit 26.6 % (36.0-46.0); Hemoglobin 9.4 g/dL (12.2-16.2); Mean Corpuscular Hemoglobin 36.7 pg (28.0-32.0); Mean Corpuscular Hgb Conc. 35.4 g/dL (32.0-36.0); Mean Corpuscular Volume 103.7 fL (80.0-100.0); Platelet Count (auto) 153 10^3/uL (140-450); Red Blood Cells 2.56 10^6/uL (4.0-5.20); White Blood Cell 2.5 10^3/uL (4.4-10.8)
[2020-05-05 16:03] LABS: Basophils % (manual) 0 (0.0-2.0); Blast Cells 0; Metamyelocytes % 0; Myelocytes % 0; Promyelocytes % 0; Reactive Lymphocytes 0
[2020-05-05 16:13] LABS: Albumin 2.6 g/dL (3.4-5.0); Magnesium 1.6 mg/dL (1.6-2.6); Potassium 3.1 mmol/L (3.5-5.1)
[2020-05-05 16:17] LABS: BUN/Creatinine Ratio 7.1; Bilirubin, Total 0.5 mg/dL (0.2-1.0); Total Protein 4.9 g/dL (6.4-8.2)
[2020-05-05 16:26] LABS: Band Neutrophils % (manual) 2; Eosinophils % (manual) 4 (0-7); Lymphocytes % (manual) 28 (10.0-50.0); Monocytes % (manual) 21 (0-12)
[2020-05-05] MEDS ORDERED: ALBUMIN 25% 100 ML IV ONE (16:47)
[2020-05-05] MEDS: ALBUMIN 25% 100 ML IV SCH (17:00)
[2020-05-05] MEDS: MIDODRINE HCL 10 MG TAB PO SCH (18:00)
[2020-05-05] MEDS: DIPHENOXYLATE W/ATROPINE 2.5 MG TAB PO PRN (18:33)
[2020-05-05] MEDS ORDERED: POTASSIUM CHL 20MEQ/100ML 200 ML IV ONE (19:55)
[2020-05-05 20:52] LABS: Calcium 7.6 mg/dL (8.5-10.1); Potassium 3.4 mmol/L (3.5-5.1)
[2020-05-05 20:54] LABS: BUN/Creatinine Ratio 7.4
[2020-05-05] MEDS: BUDESONIDE (INHALATION) 0.5 MG/2 ML NEB NEB SCH (21:51)
[2020-05-06] VITALS (31 sets, daily range): BP systolic 87–133; BP diastolic 41–82
[2020-05-06] MEDS: ALBUMIN 25% 100 ML IV SCH ×3 (01:19→18:57)
[2020-05-06] MEDS: POTASSIUM CHL 20MEQ/100ML 100 ML IV SCH (01:20)
[2020-05-06 04:19] LABS: Hemoglobin 8.2 g/dL (12.2-16.2)
[2020-05-06 04:21] LABS: Hematocrit 24.2 % (36.0-46.0); Mean Corpuscular Hemoglobin 35.2 pg (28.0-32.0); Mean Corpuscular Hgb Conc. 33.9 g/dL (32.0-36.0); Mean Corpuscular Volume 103.9 fL (80.0-100.0); Platelet Count (auto) 139 10^3/uL (140-450); Red Blood Cells 2.33 10^6/uL (4.0-5.20); Red Cell Distribution Width 17.9 % (11.8-14.3)
[2020-05-06 04:25] LABS: Basophils % (manual) 0 (0.0-2.0); Blast Cells 0; Metamyelocytes % 0; Promyelocytes % 0; Reactive Lymphocytes 0
[2020-05-06 04:37] LABS: Albumin 3.6 g/dL (3.4-5.0); Calcium 7.9 mg/dL (8.5-10.1); Potassium 4.1 mmol/L (3.5-5.1)
[2020-05-06 04:41] LABS: BUN/Creatinine Ratio 6.7; Bilirubin, Total 0.6 mg/dL (0.2-1.0); Total Protein 5.5 g/dL (6.4-8.2)
[2020-05-06 04:45] LABS: Band Neutrophils % (manual) 1; Eosinophils % (manual) 4 (0-7); Lymphocytes % (manual) 38 (10.0-50.0); Monocytes % (manual) 11 (0-12); Myelocytes % 1
[2020-05-06] MEDS: MIDODRINE HCL 10 MG TAB PO SCH ×3 (06:05→18:53)
[2020-05-06] MEDS: LEVOTHYROXINE SODIUM 88 MCG TAB PO SCH (06:05)
[2020-05-06] MEDS: ACCU-CHEK COMFORT CURVE STRIP VI SCH ×4 (06:06→21:00)
[2020-05-06] MEDS: DIPHENOXYLATE W/ATROPINE 2.5 MG TAB PO PRN ×2 (06:06→19:18)
[2020-05-06] MEDS: InsuLIN REG 1unit/0.01ml Soln (100units/ml) SC SCH ×4 (06:06→21:00)
[2020-05-06] MEDS: SODIUM CHLORIDE 1 GM TAB PO SCH ×3 (06:53→22:00)
[2020-05-06] MEDS: TRELEGY IN SCH (10:45)
[2020-05-06] MEDS: GABAPENTIN 300 MG CAP PO SCH ×2 (10:46→22:00)
[2020-05-06] MEDS: PANTOPRAZOLE 40 MG TAB PO SCH (10:52)
[2020-05-06 14:44] LABS: Calcium 8.3 mg/dL (8.5-10.1); Potassium 3.7 mmol/L (3.5-5.1)
[2020-05-06] MEDS: NOREPINEPHRINE 8 MG/250ML KIT 250 ML IV SCH (15:30)
[2020-05-06] MEDS: traMADol HCL 50 MG TAB PO PRN (15:59)
[2020-05-06] MEDS: BUDESONIDE (INHALATION) 0.5 MG/2 ML NEB NEB SCH (18:13)
[2020-05-06] MEDS: Glucerna Carbsteady SHAKE Vanilla 8oz PO SCH ×4 (18:57→19:29)
[2020-05-07] VITALS (13 sets, daily range): BP systolic 90–129; BP diastolic 29–79
[2020-05-07] MEDS: ALBUMIN 25% 100 ML IV SCH ×3 (01:00→17:00)
[2020-05-07] MEDS: CHOLESTYRAMINE 4 GM POWDER GT SCH ×3 (01:30→23:16)
[2020-05-07 04:32] LABS: Basophils # (auto) 0 10 ^3/uL (0-0.2); Basophils % (auto) 0.2 % (0.0-2.0); Eosinophils # (auto) 0.1 10 ^3/uL (0-0.8); Lymphocytes # (auto) 0.7 10 ^3/uL (0.4-5.4); Monocytes # (auto) 0.5 10 ^3/uL (0-1.3); White Blood Cell 2.6 10^3/uL (4.4-10.8)
[2020-05-07 04:34] LABS: Eosinophils % (auto) 2.5 % (0.0-7.0); Hematocrit 24.8 % (36.0-46.0); Hemoglobin 8.3 g/dL (12.2-16.2); Lymphocytes % (auto) 27.9 % (10.0-50.0); Mean Corpuscular Hemoglobin 34.6 pg (28.0-32.0); Mean Corpuscular Hgb Conc. 33.3 g/dL (32.0-36.0); Mean Corpuscular Volume 104.2 fL (80.0-100.0); Monocytes % (auto) 17.8 % (0.0-12.0); Neutrophils # (auto) 1.4 10 ^3/uL (1.6-8.6); Neutrophils % (auto) 51.6 % (37.0-80.0); Nucleated Red Blood Cells % 0.2 %; Platelet Count (auto) 140 10^3/uL (140-450); Red Blood Cells 2.38 10^6/uL (4.0-5.20)
[2020-05-07 04:53] LABS: BUN/Creatinine Ratio 5.6; Calcium 8.2 mg/dL (8.5-10.1); Potassium 3.3 mmol/L (3.5-5.1)
[2020-05-07] MEDS: SODIUM CHLORIDE 1 GM TAB PO SCH ×3 (06:00→22:00)
[2020-05-07] MEDS: MIDODRINE HCL 10 MG TAB PO SCH ×3 (06:45→17:52)
[2020-05-07] MEDS: InsuLIN REG 1unit/0.01ml Soln (100units/ml) SC SCH ×4 (07:00→22:00)
[2020-05-07] MEDS: ACCU-CHEK COMFORT CURVE STRIP VI SCH ×4 (07:00→23:01)
[2020-05-07] MEDS: LEVOTHYROXINE SODIUM 88 MCG TAB PO SCH (07:00)
[2020-05-07] MEDS: Glucerna Carbsteady SHAKE Vanilla 8oz PO SCH ×3 (08:00→18:00)
[2020-05-07] MEDS: PANTOPRAZOLE 40 MG TAB PO SCH (09:58)
[2020-05-07] MEDS: GABAPENTIN 300 MG CAP PO SCH ×2 (09:58→23:01)
[2020-05-07] MEDS: TRELEGY IN SCH (09:59)
[2020-05-07] MEDS: BUDESONIDE (INHALATION) 0.5 MG/2 ML NEB NEB SCH ×2 (10:00→22:00)
[2020-05-07] MEDS: ONDANSETRON HCL 4 MG/2 ML VIAL IV PRN (14:02)
[2020-05-07] MEDS ORDERED: SODIUM CHL 3% 100 ML IV ONE (14:45)
[2020-05-07] MEDS: NOREPINEPHRINE 8 MG/250ML KIT 250 ML IV SCH (15:30)
[2020-05-07] MEDS ORDERED: METOCLOPRAMIDE HCL 5MG/ml INJ 2ml VIAL IV ONE (16:15)
[2020-05-07] MEDS: ALPRAZolam 0.25 MG TAB PO PRN (16:50)
[2020-05-07] MEDS: ACETAMINOPHEN 500 MG TAB PO PRN (17:01)
[2020-05-08] MEDS: ALBUMIN 25% 100 ML IV SCH ×3 (00:33→17:49)
[2020-05-08 00:58] VITALS: BP 104/50
[2020-05-08 05:00] VITALS: BP 135/73
[2020-05-08 05:32] LABS: Basophils # (auto) 0 10 ^3/uL (0-0.2); Basophils % (auto) 0.2 % (0.0-2.0); Eosinophils # (auto) 0 10 ^3/uL (0-0.8); Eosinophils % (auto) 1.4 % (0.0-7.0); Hematocrit 23.6 % (36.0-46.0); Hemoglobin 7.9 g/dL (12.2-16.2); Lymphocytes # (auto) 0.8 10 ^3/uL (0.4-5.4); Lymphocytes % (auto) 26.3 % (10.0-50.0); Mean Corpuscular Hemoglobin 35.3 pg (28.0-32.0); Mean Corpuscular Hgb Conc. 33.7 g/dL (32.0-36.0); Mean Corpuscular Volume 104.9 fL (80.0-100.0); Monocytes # (auto) 0.4 10 ^3/uL (0-1.3); Neutrophils # (auto) 1.7 10 ^3/uL (1.6-8.6); Neutrophils % (auto) 57.1 % (37.0-80.0); Nucleated Red Blood Cells % 0.2 %; Platelet Count (auto) 131 10^3/uL (140-450); Red Blood Cells 2.25 10^6/uL (4.0-5.20); Red Cell Distribution Width 18.2 % (11.8-14.3)
[2020-05-08 05:48] LABS: Calcium 8.4 mg/dL (8.5-10.1); Potassium 3.1 mmol/L (3.5-5.1)
[2020-05-08] MEDS: SODIUM CHLORIDE 1 GM TAB PO SCH ×3 (06:00→22:00)
[2020-05-08] MEDS: LEVOTHYROXINE SODIUM 88 MCG TAB PO SCH (06:12)
[2020-05-08] MEDS: ACCU-CHEK COMFORT CURVE STRIP VI SCH ×3 (06:13→17:55)
[2020-05-08] MEDS: InsuLIN REG 1unit/0.01ml Soln (100units/ml) SC SCH ×3 (06:13→17:00)
[2020-05-08] MEDS: MIDODRINE HCL 10 MG TAB PO SCH ×3 (06:14→18:47)
[2020-05-08] MEDS: Glucerna Carbsteady SHAKE Vanilla 8oz PO SCH ×3 (08:00→18:00)
[2020-05-08 09:00] VITALS: BP 122/76
[2020-05-08] MEDS: BUDESONIDE (INHALATION) 0.5 MG/2 ML NEB NEB SCH (10:00)
[2020-05-08] MEDS: TRELEGY IN SCH (10:00)
[2020-05-08] MEDS: ONDANSETRON HCL 4 MG/2 ML VIAL IV PRN (10:17)
[2020-05-08] MEDS: PANTOPRAZOLE 40 MG TAB PO SCH (10:18)
[2020-05-08] MEDS: GABAPENTIN 300 MG CAP PO SCH ×2 (10:18→21:44)
[2020-05-08] MEDS: CHOLESTYRAMINE 4 GM POWDER GT SCH ×2 (12:19→23:00)
[2020-05-08] MEDS ORDERED: POTASSIUM CHL 20 Meq TABLET PO ONE (12:30)
[2020-05-08] MEDS: ACETAMINOPHEN 500 MG TAB PO PRN ×2 (12:55→23:12)
[2020-05-08 13:00] VITALS: BP 131/71
[2020-05-08] MEDS ORDERED: IBUPROFEN 600 MG TAB PO PRN (13:45)
[2020-05-08] MEDS ORDERED: levoFLOXacin 500MG 100 ML IV ONE (13:45)
[2020-05-08 17:00] VITALS: BP 112/66
[2020-05-08] MEDS: traMADol HCL 50 MG TAB PO PRN (18:47)
[2020-05-08] MEDS: ALPRAZolam 0.25 MG TAB PO PRN (18:55)
[2020-05-08] MEDS ORDERED: CLINIMIX PER PHARMACY 0 ML IV SCH (19:15)
[2020-05-08] MEDS ORDERED: CLINIMIX PER PHARMACY IV NR (20:00)
[2020-05-08] MEDS ORDERED: DEXTROSE (50%) 50ML SYRG IV PRN (20:00)
[2020-05-08 20:12] LABS: Albumin 4.7 g/dL (3.4-5.0); Magnesium 1.5 mg/dL (1.6-2.6)
[2020-05-08 20:17] LABS: Bilirubin, Direct 0.3 mg/dL (0-0.2); Bilirubin, Total 0.8 mg/dL (0.2-1.0); Phosphorus 1.8 mg/dL (2.5-4.90); Pre Albumin 7.9 mg/dL (20.0-40.0); Total Protein 6.3 g/dL (6.4-8.2)
[2020-05-08] MEDS: MAGNESIUM SULFATE 1GM/100ML 100 ML IV SCH ×2 (21:00→21:55)
[2020-05-08] MEDS ORDERED: POTASSIUM PHOSPHATE 44 MEQ in D5W 5% 250 ML IV ONE ×3 (21:15→23:00)
[2020-05-08] MEDS: UREA 15gm PO Powder PKG PO SCH (21:44)
[2020-05-08] MEDS ORDERED: InsuLIN REG 1unit/0.01ml Soln (100units/ml) SC SCH (22:00)
[2020-05-08] MEDS ORDERED: ACCU-CHEK COMFORT CURVE STRIP VI SCH (22:00)
[2020-05-09] MEDS ORDERED: DEXTROSE (50%) 50ML SYRG IV SCH
[2020-05-09] MEDS ORDERED: ALPRAZolam 0.5 MG TAB PO PRN (00:15)
[2020-05-09] MEDS: ACCU-CHEK COMFORT CURVE STRIP VI SCH ×4 (00:25→18:00)
[2020-05-09] MEDS: ALPRAZolam 0.5 MG TAB PO PRN ×2 (01:13→20:07)
[2020-05-09] MEDS ORDERED: ALBUMIN 25% 100 ML IV SCH (03:00)
[2020-05-09] MEDS ORDERED: ALBUMIN 25% 100 ML IV ONE (03:10)
[2020-05-09] MEDS: InsuLIN REG 1unit/0.01ml Soln (100units/ml) SC SCH ×3 (06:00→12:59)
[2020-05-09] MEDS: SODIUM CHLORIDE 1 GM TAB PO SCH ×2 (06:00→14:00)
[2020-05-09 06:07] VITALS: BP 126/68
[2020-05-09] MEDS: MIDODRINE HCL 10 MG TAB PO SCH ×3 (06:19→18:00)
[2020-05-09] MEDS: LEVOTHYROXINE SODIUM 88 MCG TAB PO SCH (06:19)
[2020-05-09 07:21] LABS: Potassium 3.4 mmol/L (3.5-5.1)
[2020-05-09 07:26] LABS: Basophils # (auto) 0 10 ^3/uL (0-0.2); Basophils % (auto) 0.5 % (0.0-2.0); Eosinophils # (auto) 0 10 ^3/uL (0-0.8); Eosinophils % (auto) 1.8 % (0.0-7.0); Hematocrit 22.2 % (36.0-46.0); Hemoglobin 7.2 g/dL (12.2-16.2); Lymphocytes # (auto) 0.5 10 ^3/uL (0.4-5.4); Lymphocytes % (auto) 26.5 % (10.0-50.0); Mean Corpuscular Hemoglobin 34.3 pg (28.0-32.0); Mean Corpuscular Hgb Conc. 32.6 g/dL (32.0-36.0); Mean Corpuscular Volume 105.2 fL (80.0-100.0); Monocytes # (auto) 0.3 10 ^3/uL (0-1.3); Monocytes % (auto) 17.5 % (0.0-12.0); Neutrophils # (auto) 1.1 10 ^3/uL (1.6-8.6); Neutrophils % (auto) 53.7 % (37.0-80.0); Nucleated Red Blood Cells % 0.2 %; Platelet Count (auto) 121 10^3/uL (140-450); Red Blood Cells 2.11 10^6/uL (4.0-5.20); Red Cell Distribution Width 17.4 % (11.8-14.3)
[2020-05-09 07:35] LABS: Albumin 4.5 g/dL (3.4-5.0); BUN/Creatinine Ratio 25.9; Bilirubin, Total 0.8 mg/dL (0.2-1.0); Calcium 7.8 mg/dL (8.5-10.1); Total Protein 6.2 g/dL (6.4-8.2)
[2020-05-09] MEDS: Glucerna Carbsteady SHAKE Vanilla 8oz PO SCH ×3 (08:00→18:00)
[2020-05-09 09:00] VITALS: BP 145/87
[2020-05-09] MEDS: GABAPENTIN 300 MG CAP PO SCH ×2 (09:24→21:14)
[2020-05-09] MEDS: PANTOPRAZOLE 40 MG TAB PO SCH (09:24)
[2020-05-09] MEDS: traMADol HCL 50 MG TAB PO PRN ×2 (09:24→21:20)
[2020-05-09] MEDS: levoFLOXacin 500MG 100 ML IV SCH (09:24)
[2020-05-09] MEDS: TRELEGY IN SCH (09:25)
[2020-05-09] MEDS: UREA 15gm PO Powder PKG PO SCH ×2 (10:00→21:15)
[2020-05-09] MEDS: CHOLESTYRAMINE 4 GM POWDER GT SCH ×2 (11:00→23:00)
[2020-05-09 12:04] LABS: Albumin 5.1 g/dL (3.4-5.0); Potassium 3.3 mmol/L (3.5-5.1)
[2020-05-09 12:09] LABS: Phosphorus 1.6 mg/dL (2.5-4.90)
[2020-05-09 12:11] LABS: BUN/Creatinine Ratio 21.2; Calcium 8.3 mg/dL (8.5-10.1); Total Protein 6.8 g/dL (6.4-8.2)
[2020-05-09 13:00] VITALS: BP 155/78
[2020-05-09] MEDS ORDERED: CALCIUM GLUC 4.65meq/50ml D5AE 50 ML IV ONE (13:00)
[2020-05-09] MEDS ORDERED: POTASSIUM PHOSPHATE 44 MEQ in D5W 5% 250 ML IV ONE ×2 (13:00→18:00)
[2020-05-09 17:00] VITALS: BP 104/64
[2020-05-09] MEDS ORDERED: AMINO ACID INFUSION IN D5W 2,000 ML IV NR (20:00)
[2020-05-09 22:00] VITALS: BP 112/58
[2020-05-10] MEDS: traMADol HCL 50 MG TAB PO PRN ×2 (04:57→10:41)
[2020-05-10 05:27] VITALS: BP 126/74
[2020-05-10] MEDS: UREA 15gm PO Powder PKG PO SCH ×3 (05:29→22:00)
[2020-05-10] MEDS: MIDODRINE HCL 10 MG TAB PO SCH ×3 (05:29→18:00)
[2020-05-10] MEDS: ACCU-CHEK COMFORT CURVE STRIP VI SCH ×4 (05:35→18:00)
[2020-05-10] MEDS: InsuLIN REG 1unit/0.01ml Soln (100units/ml) SC SCH ×4 (05:36→19:44)
[2020-05-10] MEDS: LEVOTHYROXINE SODIUM 88 MCG TAB PO SCH (05:41)
[2020-05-10 07:15] LABS: Hemoglobin 8.1 g/dL (12.2-16.2); White Blood Cell 2.2 10^3/uL (4.4-10.8)
[2020-05-10 07:18] LABS: Hematocrit 24.4 % (36.0-46.0); Mean Corpuscular Hemoglobin 34.8 pg (28.0-32.0); Mean Corpuscular Hgb Conc. 33.3 g/dL (32.0-36.0); Mean Corpuscular Volume 104.6 fL (80.0-100.0); Platelet Count (auto) 124 10^3/uL (140-450); Red Blood Cells 2.33 10^6/uL (4.0-5.20); Red Cell Distribution Width 17.6 % (11.8-14.3)
[2020-05-10 07:26] LABS: Potassium 3.7 mmol/L (3.5-5.1)
[2020-05-10 07:37] LABS: Albumin 4.5 g/dL (3.4-5.0); BUN/Creatinine Ratio 34.1; Bilirubin, Total 0.8 mg/dL (0.2-1.0); Calcium 8.2 mg/dL (8.5-10.1); Magnesium 1.9 mg/dL (1.6-2.6); Phosphorus 2.4 mg/dL (2.5-4.90); Total Protein 6.4 g/dL (6.4-8.2)
[2020-05-10] MEDS: Glucerna Carbsteady SHAKE Vanilla 8oz PO SCH ×3 (08:00→18:00)
[2020-05-10 08:02] LABS: Basophils % (manual) 0 (0.0-2.0); Blast Cells 0; Myelocytes % 0; Promyelocytes % 0; Reactive Lymphocytes 0
[2020-05-10 09:00] VITALS: BP 107/70
[2020-05-10 09:16] LABS: Band Neutrophils % (manual) 7; Eosinophils % (manual) 2 (0-7); Lymphocytes % (manual) 18 (10.0-50.0); Metamyelocytes % 1; Monocytes % (manual) 22 (0-12)
[2020-05-10] MEDS: levoFLOXacin 500MG 100 ML IV SCH (10:40)
[2020-05-10] MEDS: GABAPENTIN 300 MG CAP PO SCH ×2 (10:40→22:00)
[2020-05-10] MEDS: TRELEGY IN SCH (10:40)
[2020-05-10] MEDS: PANTOPRAZOLE 40 MG TAB PO SCH (10:40)
[2020-05-10] MEDS: ALPRAZolam 0.5 MG TAB PO PRN (10:50)
[2020-05-10] MEDS ORDERED: MAGNESIUM SULFATE 1GM/100ML 100 ML IV ONE (12:00)
[2020-05-10] MEDS ORDERED: POTASSIUM PHOSPHATE 22 MEQ in SODIUM CHL 0.9% 100 ML IV ONE (12:00)
[2020-05-10] MEDS ORDERED: CALCIUM GLUC 4.65meq/50ml D5AE 50 ML IV ONE (12:00)
[2020-05-10] MEDS ORDERED: SODIUM CHL 3% 200 ML IV ONE (12:30)
[2020-05-10 13:00] VITALS: BP 119/70
[2020-05-10] MEDS: CHOLESTYRAMINE 4 GM POWDER GT SCH ×2 (13:20→23:00)
[2020-05-10 17:00] VITALS: BP 122/57
[2020-05-10] MEDS ORDERED: AMINO ACID INFUSION IN D5W 2,000 ML IV NR (20:00)
[2020-05-10 22:00] VITALS: BP 119/64
[2020-05-11] MEDS: InsuLIN REG 1unit/0.01ml Soln (100units/ml) SC SCH ×5 (00:05→23:58)
[2020-05-11] MEDS: ALPRAZolam 0.5 MG TAB PO PRN (00:14)
[2020-05-11 05:00] VITALS: BP 114/61
[2020-05-11] MEDS: LEVOTHYROXINE SODIUM 88 MCG TAB PO SCH (05:45)
[2020-05-11] MEDS: MIDODRINE HCL 10 MG TAB PO SCH ×3 (05:45→18:01)
[2020-05-11] MEDS: UREA 15gm PO Powder PKG PO SCH ×3 (05:45→22:19)
[2020-05-11] MEDS: ACCU-CHEK COMFORT CURVE STRIP VI SCH ×5 (06:00→23:55)
[2020-05-11 07:53] LABS: Basophils # (auto) 0 10 ^3/uL (0-0.2); Eosinophils # (auto) 0 10 ^3/uL (0-0.8); Hemoglobin 7.9 g/dL (12.2-16.2); Monocytes # (auto) 0.5 10 ^3/uL (0-1.3); Platelet Count (auto) 138 10^3/uL (140-450); White Blood Cell 2.9 10^3/uL (4.4-10.8)
[2020-05-11 07:55] LABS: Basophils % (auto) 0.7 % (0.0-2.0); Eosinophils % (auto) 0.8 % (0.0-7.0); Hematocrit 23.3 % (36.0-46.0); Lymphocytes # (auto) 1.1 10 ^3/uL (0.4-5.4); Lymphocytes % (auto) 36.1 % (10.0-50.0); Mean Corpuscular Hemoglobin 35.1 pg (28.0-32.0); Mean Corpuscular Hgb Conc. 33.9 g/dL (32.0-36.0); Mean Corpuscular Volume 103.6 fL (80.0-100.0); Monocytes % (auto) 15.7 % (0.0-12.0); Neutrophils # (auto) 1.4 10 ^3/uL (1.6-8.6); Neutrophils % (auto) 46.7 % (37.0-80.0); Nucleated Red Blood Cells % 0.1 %; Red Blood Cells 2.25 10^6/uL (4.0-5.20)
[2020-05-11 08:09] LABS: Calcium 8.5 mg/dL (8.5-10.1); Potassium 3.4 mmol/L (3.5-5.1)
[2020-05-11 08:11] LABS: Magnesium 1.7 mg/dL (1.6-2.6); Phosphorus 1.5 mg/dL (2.5-4.90)
[2020-05-11 08:13] LABS: BUN/Creatinine Ratio 55.7; Bilirubin, Total 0.6 mg/dL (0.2-1.0); Total Protein 6.3 g/dL (6.4-8.2)
[2020-05-11] MEDS: Glucerna Carbsteady SHAKE Vanilla 8oz PO SCH ×3 (08:20→18:00)
[2020-05-11 09:00] VITALS: BP 120/70
[2020-05-11] MEDS ORDERED: POTASSIUM PHOSPHATE 44 MEQ in D5W 5% 250 ML IV ONE (09:30)
[2020-05-11] MEDS: TRELEGY IN SCH (10:18)
[2020-05-11] MEDS: PANTOPRAZOLE 40 MG TAB PO SCH (10:18)
[2020-05-11] MEDS: GABAPENTIN 300 MG CAP PO SCH ×2 (10:18→22:19)
[2020-05-11] MEDS: levoFLOXacin 500MG 100 ML IV SCH (10:18)
[2020-05-11] MEDS ORDERED: POTASSIUM CHL 20 Meq TABLET PO ONE (12:30)
[2020-05-11] MEDS: CHOLESTYRAMINE 4 GM POWDER GT SCH ×2 (12:41→23:54)
[2020-05-11 13:00] VITALS: BP 123/71
[2020-05-11] MEDS ORDERED: DIPHENOXYLATE W/ATROPINE 2.5 MG TAB PO ONE (14:00)
[2020-05-11 17:00] VITALS: BP 138/68
[2020-05-11] MEDS ORDERED: AMINO ACID INFUSION IN D5W 2,000 ML IV NR (20:00)
[2020-05-11 22:00] VITALS: BP 138/73
[2020-05-11] MEDS: traMADol HCL 50 MG TAB PO PRN (22:19)
[2020-05-12] MEDS ORDERED: DIPHENOXYLATE W/ATROPINE 2.5 MG TAB PO PRN
[2020-05-12 05:00] VITALS: BP 109/63
[2020-05-12] MEDS: InsuLIN REG 1unit/0.01ml Soln (100units/ml) SC SCH ×3 (06:00→18:01)
[2020-05-12] MEDS: ACCU-CHEK COMFORT CURVE STRIP VI SCH ×3 (06:00→16:58)
[2020-05-12 06:28] LABS: Potassium 3.9 mmol/L (3.5-5.1)
[2020-05-12] MEDS: MIDODRINE HCL 10 MG TAB PO SCH ×3 (06:38→17:56)
[2020-05-12] MEDS: traMADol HCL 50 MG TAB PO PRN ×3 (06:38→22:18)
[2020-05-12] MEDS: UREA 15gm PO Powder PKG PO SCH ×3 (06:38→22:17)
[2020-05-12] MEDS: LEVOTHYROXINE SODIUM 88 MCG TAB PO SCH (06:39)
[2020-05-12 06:46] LABS: Albumin 3.6 g/dL (3.4-5.0); Bilirubin, Total 0.4 mg/dL (0.2-1.0); Calcium 8.1 mg/dL (8.5-10.1); Magnesium 1.6 mg/dL (1.6-2.6); Phosphorus 1.8 mg/dL (2.5-4.90); Total Protein 5.6 g/dL (6.4-8.2)
[2020-05-12] MEDS: Glucerna Carbsteady SHAKE Vanilla 8oz PO SCH ×3 (08:00→18:01)
[2020-05-12 09:00] VITALS: BP 132/83
[2020-05-12] MEDS: TRELEGY IN SCH (10:00)
[2020-05-12] MEDS: levoFLOXacin 500MG 100 ML IV SCH (11:16)
[2020-05-12] MEDS: GABAPENTIN 300 MG CAP PO SCH ×2 (11:17→22:17)
[2020-05-12] MEDS: PANTOPRAZOLE 40 MG TAB PO SCH (11:17)
[2020-05-12] MEDS: CHOLESTYRAMINE 4 GM POWDER GT SCH ×2 (11:17→23:48)
[2020-05-12 13:00] VITALS: BP 122/64
[2020-05-12] MEDS: POTASSIUM PHOSPHATE 44 MEQ in D5W 5% 250 ML IV ONE ×2 (16:17→16:59)
[2020-05-12 17:11] VITALS: BP 135/75
[2020-05-12] MEDS ORDERED: AMINO ACID INFUSION IN D5W 2,000 ML IV NR (20:00)
[2020-05-12] MEDS: ALPRAZolam 0.5 MG TAB PO PRN (22:29)
[2020-05-13] MEDS: ACCU-CHEK COMFORT CURVE STRIP VI SCH ×4 (00:03→17:36)
[2020-05-13] MEDS: InsuLIN REG 1unit/0.01ml Soln (100units/ml) SC SCH ×4 (00:04→18:03)
[2020-05-13 01:10] VITALS: BP 122/73
[2020-05-13] MEDS: MIDODRINE HCL 10 MG TAB PO SCH ×3 (06:05→17:35)
[2020-05-13] MEDS: UREA 15gm PO Powder PKG PO SCH ×3 (06:05→22:12)
[2020-05-13 06:13] VITALS: BP 124/72
[2020-05-13] MEDS: LEVOTHYROXINE SODIUM 88 MCG TAB PO SCH (06:31)
[2020-05-13 07:58] LABS: Albumin 3.8 g/dL (3.4-5.0); Calcium 8.3 mg/dL (8.5-10.1); Magnesium 1.5 mg/dL (1.6-2.6); Potassium 3.9 mmol/L (3.5-5.1)
[2020-05-13 08:01] LABS: BUN/Creatinine Ratio 64.6; Bilirubin, Total 0.4 mg/dL (0.2-1.0); Phosphorus 2.4 mg/dL (2.5-4.90); Pre Albumin 6.6 mg/dL (20.0-40.0); Total Protein 6.1 g/dL (6.4-8.2)
[2020-05-13] MEDS: Glucerna Carbsteady SHAKE Vanilla 8oz PO SCH ×3 (08:45→17:35)
[2020-05-13 09:00] VITALS: BP 147/76
[2020-05-13] MEDS ORDERED: MAGNESIUM SULFATE 1GM/100ML 100 ML IV ONE (09:15)
[2020-05-13] MEDS ORDERED: POTASSIUM PHOSPHATE 26.4 MEQ in SODIUM CHL 0.9% 100 ML IV ONE (10:00)
[2020-05-13] MEDS: levoFLOXacin 500MG 100 ML IV SCH (11:40)
[2020-05-13] MEDS: GABAPENTIN 300 MG CAP PO SCH ×2 (11:40→22:11)
[2020-05-13] MEDS: PANTOPRAZOLE 40 MG TAB PO SCH (11:40)
[2020-05-13] MEDS: TRELEGY IN SCH (11:41)
[2020-05-13] MEDS: CHOLESTYRAMINE 4 GM POWDER GT SCH (11:41)
[2020-05-13] MEDS: traMADol HCL 50 MG TAB PO PRN ×2 (11:57→18:01)
[2020-05-13 13:00] VITALS: BP 123/75
[2020-05-13] MEDS: ONDANSETRON HCL 4 MG/2 ML VIAL IV PRN (13:30)
[2020-05-13 17:00] VITALS: BP 134/77
[2020-05-13] MEDS: levoFLOXacin 500 MG TAB PO SCH (17:35)
[2020-05-13] MEDS: FUROSEMIDE 40 MG TAB PO SCH (17:35)
[2020-05-13] MEDS ORDERED: FUROSEMIDE 20 MG/2 ML VIAL IV SCH (18:00)
[2020-05-13] MEDS ORDERED: AMINO ACID INFUSION IN D5W 2,000 ML IV NR (20:00)
[2020-05-13] MEDS: POTASSIUM CHL 20 Meq TABLET PO SCH (22:12)
[2020-05-13 22:43] VITALS: BP 113/66
[2020-05-14] MEDS ORDERED: InsuLIN REG 1unit/0.01ml Soln (100units/ml) SC SCH
[2020-05-14] MEDS ORDERED: ACCU-CHEK COMFORT CURVE STRIP VI SCH
[2020-05-14] MEDS ORDERED: DEXTROSE (50%) 50ML SYRG IV SCH
[2020-05-14] MEDS: ALPRAZolam 0.5 MG TAB PO PRN ×2 (00:22→21:25)
[2020-05-14] MEDS: CHOLESTYRAMINE 4 GM POWDER GT SCH ×4 (00:22→23:00)
[2020-05-14] MEDS: ACCU-CHEK COMFORT CURVE STRIP VI SCH ×5 (00:23→23:07)
[2020-05-14] MEDS: InsuLIN REG 1unit/0.01ml Soln (100units/ml) SC SCH ×5 (00:43→23:08)
[2020-05-14] MEDS: traMADol HCL 50 MG TAB PO PRN ×2 (00:45→06:24)
[2020-05-14 05:26] VITALS: BP 119/76
[2020-05-14] MEDS: UREA 15gm PO Powder PKG PO SCH ×4 (06:08→21:14)
[2020-05-14] MEDS: MIDODRINE HCL 10 MG TAB PO SCH ×3 (06:08→18:00)
[2020-05-14 06:14] LABS: Albumin 3.4 g/dL (3.4-5.0); Magnesium 1.8 mg/dL (1.6-2.6); Potassium 3.4 mmol/L (3.5-5.1)
[2020-05-14 06:17] LABS: BUN/Creatinine Ratio 54.7; Bilirubin, Total 0.5 mg/dL (0.2-1.0); Total Protein 5.9 g/dL (6.4-8.2)
[2020-05-14] MEDS: LEVOTHYROXINE SODIUM 88 MCG TAB PO SCH (06:23)
[2020-05-14] MEDS: Glucerna Carbsteady SHAKE Vanilla 8oz PO SCH ×3 (08:00→18:00)
[2020-05-14] MEDS ORDERED: POTASSIUM CHL 20MEQ/100ML 100 ML IV ONE (08:30)
[2020-05-14 09:00] VITALS: BP 135/69
[2020-05-14] MEDS: ONDANSETRON HCL 4 MG/2 ML VIAL IV PRN (09:17)
[2020-05-14] MEDS: GABAPENTIN 300 MG CAP PO SCH ×2 (09:20→21:10)
[2020-05-14] MEDS: PANTOPRAZOLE 40 MG TAB PO SCH (09:20)
[2020-05-14] MEDS: levoFLOXacin 500 MG TAB PO SCH (09:20)
[2020-05-14] MEDS: FUROSEMIDE 40 MG TAB PO SCH (09:20)
[2020-05-14] MEDS: POTASSIUM CHL 20 Meq TABLET PO SCH (09:21)
[2020-05-14] MEDS ORDERED: POTASSIUM PHOSPHATE 44 MEQ in D5W 5% 250 ML IV ONE (10:00)
[2020-05-14] MEDS: TRELEGY IN SCH (10:00)
[2020-05-14] MEDS: PROMETHAZINE HCL 25 MG/ML 1ML IV PRN ×2 (11:20→18:56)
[2020-05-14 13:00] VITALS: BP 115/65
[2020-05-14] MEDS ORDERED: SODIUM CHLORIDE 0.9% 1,000 ML IV SCH (15:30)
[2020-05-14] MEDS ORDERED: HYDROCORTISONE SOD SUCC 100 MG/2ML INJ VIAL IV ONE (15:30)
[2020-05-14 16:53] VITALS: BP 132/79
[2020-05-14] MEDS ORDERED: FUROSEMIDE 20 MG TAB PO SCH (18:00)
[2020-05-14] MEDS ORDERED: AMINO ACID INFUSION IN D5W 2,000 ML IV SCH (20:00)
[2020-05-14] MEDS: HYDROCORTISONE SOD SUCC 100 MG/2ML INJ VIAL IV SCH (21:09)
[2020-05-14 22:00] VITALS: BP 142/81
[2020-05-15 05:00] VITALS: BP 142/81
[2020-05-15] MEDS: MIDODRINE HCL 10 MG TAB PO SCH ×2 (05:09→11:40)
[2020-05-15] MEDS: LEVOTHYROXINE SODIUM 88 MCG TAB PO SCH (05:10)
[2020-05-15] MEDS: UREA 15gm PO Powder PKG PO SCH ×3 (05:11→22:02)
[2020-05-15] MEDS: ACCU-CHEK COMFORT CURVE STRIP VI SCH ×3 (05:24→18:23)
[2020-05-15] MEDS: InsuLIN REG 1unit/0.01ml Soln (100units/ml) SC SCH ×3 (05:25→18:00)
[2020-05-15 07:08] LABS: White Blood Cell 3.7 10^3/uL (4.4-10.8)
[2020-05-15 07:10] LABS: Hematocrit 23.9 % (36.0-46.0); Mean Corpuscular Hemoglobin 34.7 pg (28.0-32.0); Mean Corpuscular Hgb Conc. 33.4 g/dL (32.0-36.0); Platelet Count (auto) 157 10^3/uL (140-450); Red Cell Distribution Width 18.5 % (11.8-14.3)
[2020-05-15 07:26] LABS: Albumin 3.5 g/dL (3.4-5.0); Calcium 8.5 mg/dL (8.5-10.1); Magnesium 1.9 mg/dL (1.6-2.6); Potassium 3.8 mmol/L (3.5-5.1)
[2020-05-15 07:27] LABS: Basophils % (manual) 0 (0.0-2.0); Blast Cells 0; Eosinophils % (manual) 0 (0-7); Promyelocytes % 0; Reactive Lymphocytes 0
[2020-05-15 07:33] LABS: Bilirubin, Total 0.4 mg/dL (0.2-1.0); Phosphorus 1.8 mg/dL (2.5-4.90); Pre Albumin 7.9 mg/dL (20.0-40.0); Total Protein 6.4 g/dL (6.4-8.2)
[2020-05-15] MEDS: Glucerna Carbsteady SHAKE Vanilla 8oz PO SCH ×3 (08:00→18:23)
[2020-05-15 08:03] LABS: Band Neutrophils % (manual) 3; Lymphocytes % (manual) 32 (10.0-50.0); Metamyelocytes % 2; Monocytes % (manual) 16 (0-12); Myelocytes % 2
[2020-05-15] MEDS: GABAPENTIN 300 MG CAP PO SCH ×2 (08:47→22:02)
[2020-05-15] MEDS: levoFLOXacin 500 MG TAB PO SCH (08:47)
[2020-05-15] MEDS: traMADol HCL 50 MG TAB PO PRN (08:47)
[2020-05-15] MEDS: PANTOPRAZOLE 40 MG TAB PO SCH (08:48)
[2020-05-15] MEDS: HYDROCORTISONE SOD SUCC 100 MG/2ML INJ VIAL IV SCH (08:48)
[2020-05-15] MEDS: TRELEGY IN SCH (08:50)
[2020-05-15 09:00] VITALS: BP 131/79
[2020-05-15] MEDS: CHOLESTYRAMINE 4 GM POWDER GT SCH (10:20)
[2020-05-15 13:00] VITALS: BP 134/82
[2020-05-15 17:00] VITALS: BP 130/76
[2020-05-15] MEDS ORDERED: LACTULOSE 20Gm/30ML SOLN PO ONE (17:30)
[2020-05-15] MEDS ORDERED: LACTULOSE 20Gm/30ML SOLN PO PRN (17:30)
[2020-05-15] MEDS: HYDROCORTISONE 10 MG TAB PO SCH (18:23)
[2020-05-15] MEDS: PROMETHAZINE HCL 25 MG/ML 1ML IV PRN (18:57)
[2020-05-15 22:00] VITALS: BP 138/88
[2020-05-16] MEDS: ACCU-CHEK COMFORT CURVE STRIP VI SCH ×4 (00:20→18:21)
[2020-05-16] MEDS: InsuLIN REG 1unit/0.01ml Soln (100units/ml) SC SCH ×4 (00:54→18:22)
[2020-05-16] MEDS: ALPRAZolam 0.5 MG TAB PO PRN ×2 (00:55→22:10)
[2020-05-16] MEDS: traMADol HCL 50 MG TAB PO PRN ×4 (04:29→22:10)
[2020-05-16 05:00] VITALS: BP 118/74
[2020-05-16 05:43] LABS: BUN/Creatinine Ratio 70.8
[2020-05-16] MEDS: UREA 15gm PO Powder PKG PO SCH ×3 (06:56→22:09)
[2020-05-16] MEDS: LEVOTHYROXINE SODIUM 88 MCG TAB PO SCH (07:04)
[2020-05-16] MEDS: HYDROCORTISONE 10 MG TAB PO SCH ×2 (07:04→17:43)
[2020-05-16 08:00] VITALS: BP 132/80
[2020-05-16] MEDS: Glucerna Carbsteady SHAKE Vanilla 8oz PO SCH ×3 (08:00→18:21)
[2020-05-16 09:00] VITALS: BP 118/74
[2020-05-16] MEDS: TRELEGY IN SCH (09:32)
[2020-05-16] MEDS: GABAPENTIN 300 MG CAP PO SCH ×2 (09:33→22:09)
[2020-05-16] MEDS: PANTOPRAZOLE 40 MG TAB PO SCH (09:34)
[2020-05-16 13:00] VITALS: BP 132/80
[2020-05-16 16:21] VITALS: BP 142/77
[2020-05-16] MEDS ORDERED: POTASSIUM CHL 20 Meq TABLET PO ONE (16:30)
[2020-05-16] MEDS: ACETAMINOPHEN 500 MG TAB PO PRN (17:51)
[2020-05-16 22:00] VITALS: BP_SYST 133; BP_SYST 182; BP_DIAS 78; BP_DIAS 82
[2020-05-17] MEDS: ACCU-CHEK COMFORT CURVE STRIP VI SCH ×5 (00:30→23:28)
[2020-05-17] MEDS: InsuLIN REG 1unit/0.01ml Soln (100units/ml) SC SCH ×5 (00:30→23:29)
[2020-05-17 05:48] VITALS: BP 120/76
[2020-05-17] MEDS: HYDROCORTISONE 10 MG TAB PO SCH ×2 (06:40→17:36)
[2020-05-17] MEDS: UREA 15gm PO Powder PKG PO SCH ×3 (06:41→21:36)
[2020-05-17] MEDS: LEVOTHYROXINE SODIUM 88 MCG TAB PO SCH (06:41)
[2020-05-17] MEDS: traMADol HCL 50 MG TAB PO PRN ×3 (06:41→21:37)
[2020-05-17 07:11] LABS: BUN/Creatinine Ratio 82.7; Calcium 9.1 mg/dL (8.5-10.1); Magnesium 2.2 mg/dL (1.6-2.6)
[2020-05-17 07:40] VITALS: BP 127/70
[2020-05-17] MEDS: Glucerna Carbsteady SHAKE Vanilla 8oz PO SCH ×3 (08:08→17:47)
[2020-05-17 08:19] VITALS: BP 127/70
[2020-05-17] MEDS: PANTOPRAZOLE 40 MG TAB PO SCH (09:35)
[2020-05-17] MEDS: GABAPENTIN 300 MG CAP PO SCH ×2 (09:35→21:36)
[2020-05-17] MEDS: TRELEGY IN SCH (09:35)
[2020-05-17 12:26] VITALS: BP 158/86
[2020-05-17 17:00] VITALS: BP 158/97
[2020-05-17] MEDS: ALPRAZolam 0.5 MG TAB PO PRN (21:37)
[2020-05-17 22:00] VITALS: BP 141/88
[2020-05-18] MEDS: InsuLIN REG 1unit/0.01ml Soln (100units/ml) SC SCH ×3 (06:00→18:00)
[2020-05-18] MEDS: UREA 15gm PO Powder PKG PO SCH ×2 (06:00→13:34)
[2020-05-18 06:05] VITALS: BP 133/72
[2020-05-18] MEDS: ACCU-CHEK COMFORT CURVE STRIP VI SCH ×3 (06:19→18:17)
[2020-05-18] MEDS: HYDROCORTISONE 10 MG TAB PO SCH ×2 (06:37→18:15)
[2020-05-18] MEDS: LEVOTHYROXINE SODIUM 88 MCG TAB PO SCH (06:37)
[2020-05-18 08:15] VITALS: BP 125/71
[2020-05-18] MEDS: Glucerna Carbsteady SHAKE Vanilla 8oz PO SCH ×3 (08:15→18:15)
[2020-05-18 09:00] VITALS: BP 125/71
[2020-05-18] MEDS: PANTOPRAZOLE 40 MG TAB PO SCH (09:52)
[2020-05-18] MEDS: GABAPENTIN 300 MG CAP PO SCH (09:52)
[2020-05-18] MEDS: TRELEGY IN SCH (09:52)
[2020-05-18 13:00] VITALS: BP 128/83
[2020-05-18] MEDS: traMADol HCL 50 MG TAB PO PRN (16:36)
[2020-05-18 16:50] VITALS: BP 128/83
== END 2020-05-18 18:30 | disposition home or self-care (01) | DRG 180 ==
LOC: ER 11:08 → EDBD 11:08 → TELE 11:09 → ER 15:09 → DOU IN ICU 15:15 → ER 15:21 → TELE-WESTW 05-04 20:45 → ICU WEST 05-05 15:48 → TELE-WESTW 05-07 22:00
PROVIDERS: ADMIT Nurse Practitioner Acute Care; ATTEND Internal Medicine
PROC: 02HV33Z Insertion of Infusion Device into Superior Vena Cava, Percutaneous Approach (ICD-10-PCS; principal; 2020-05-15)
DX: C34.01 Malignant neoplasm of right main bronchus (principal); G93.41 Metabolic encephalopathy; J96.00 Acute respiratory failure, unspecified whether with hypoxia or hypercapnia; C78.7 Secondary malignant neoplasm of liver and intrahepatic bile duct; E22.2 Syndrome of inappropriate secretion of antidiuretic hormone; J44.1 Chronic obstructive pulmonary disease with (acute) exacerbation; E44.0 Moderate protein-calorie malnutrition; E27.40 Unspecified adrenocortical insufficiency; J98.11 Atelectasis; D63.1 Anemia in chronic kidney disease; E86.0 Dehydration; E66.9 Obesity, unspecified; E03.9 Hypothyroidism, unspecified; D53.9 Nutritional anemia, unspecified; E78.5 Hyperlipidemia, unspecified; E88.09 Other disorders of plasma-protein metabolism, not elsewhere classified; E11.22 Type 2 diabetes mellitus with diabetic chronic kidney disease; I12.9 Hypertensive chronic kidney disease with stage 1 through stage 4 chronic kidney disease, or unspecified chronic kidney disease; J44.9 Chronic obstructive pulmonary disease, unspecified; K52.9 Noninfective gastroenteritis and colitis, unspecified; N18.9 Chronic kidney disease, unspecified; Z79.84 Long term (current) use of oral hypoglycemic drugs; Z80.3 Family history of malignant neoplasm of breast; Z83.3 Family history of diabetes mellitus; Z85.05 Personal history of malignant neoplasm of liver; Z85.118 Personal history of other malignant neoplasm of bronchus and lung; Z87.310 Personal history of (healed) osteoporosis fracture; Z92.21 Personal history of antineoplastic chemotherapy; Z96.652 Presence of left artificial knee joint; Z68.28 Body mass index [BMI] 28.0-28.9, adult; Z88.6 Allergy status to analgesic agent; Z88.1 Allergy status to other antibiotic agents; Z88.5 Allergy status to narcotic agent; Z88.0 Allergy status to penicillin; D69.6 Thrombocytopenia, unspecified; I95.9 Hypotension, unspecified; Z20.828 Contact with and (suspected) exposure to other viral communicable diseases
CPT/HCPCS: 36415; 70470; 71045; 71250; 80048; 80053; 80076; 81001; 82040; 82570; 82962; 83036; 83735; 83880; 83930; 83935; 84100; 84156; 84300; 84443; 84478; 84484; 85007; 85025; 85027; 85610; 85730; 86850; 86900; 86901; 87040; 87086; 87493; 93005; 94640; 96360; 96361; 97163; 99291; G0378; J0610; J1642; J1815; J1956; J2405; J3480; J7060; P9047

== ENCOUNTER 2020-05-24 12:03 | Inpatient (IN) | payer OTHER ==
[~2020-05-24] VITALS: Ht 167.6 cm; Wt 81.6 kg
[~2020-05-24 12:03] MED LIST changes: +ALBU2TAB4 PO; +DIPH2.5T73 PO; +GABA300C10 PO; +HYDR10T PO
[2020-05-24] MEDS ORDERED: SODIUM CHLORIDE 0.9% 1,000 ML IV ONE (13:00)
[2020-05-24 16:01] LABS: Basophils # (auto) 0.1 10 ^3/uL (0-0.2); Eosinophils # (auto) 0.1 10 ^3/uL (0-0.8); Lymphocytes # (auto) 2.5 10 ^3/uL (0.4-5.4); Monocytes # (auto) 0.9 10 ^3/uL (0-1.3)
[2020-05-24 16:02] LABS: Basophils % (auto) 0.9 % (0.0-2.0); Eosinophils % (auto) 1.6 % (0.0-7.0); Hematocrit 32.5 % (36.0-46.0); Hemoglobin 10.8 g/dL (12.2-16.2); Lymphocytes % (auto) 39.5 % (10.0-50.0); Mean Corpuscular Hemoglobin 34.9 pg (28.0-32.0); Mean Corpuscular Hgb Conc. 33.2 g/dL (32.0-36.0); Mean Corpuscular Volume 105.2 fL (80.0-100.0); Monocytes % (auto) 13.3 % (0.0-12.0); Neutrophils # (auto) 2.9 10 ^3/uL (1.6-8.6); Neutrophils % (auto) 44.7 % (37.0-80.0); Nucleated Red Blood Cells % 0.2 %; Platelet Count (auto) 187 10^3/uL (140-450); Red Blood Cells 3.09 10^6/uL (4.0-5.20); Red Cell Distribution Width 18.4 % (11.8-14.3); White Blood Cell 6.4 10^3/uL (4.4-10.8)
[2020-05-24 16:16] LABS: Albumin 3.9 g/dL (3.4-5.0); Calcium 7.5 mg/dL (8.5-10.1)
[2020-05-24 16:21] LABS: Bilirubin, Total 1.1 mg/dL (0.2-1.0); Total Protein 7.5 g/dL (6.4-8.2)
[2020-05-24 16:28] LABS: BUN/Creatinine Ratio 11.4; Potassium 2.8 mmol/L (3.5-5.1)
[2020-05-24] MEDS ORDERED: SODIUM CHL 3% 500 ML IV ONE (16:45)
[2020-05-24 16:50] LABS: Urine Bacteria FEW /hpf (None Seen); Urine Blood Negative /uL (Negative); Urine Hyaline Cast FEW /lpf (0 - 2); Urine Mucus FEW (None Seen); Urine Specific Gravity 1.018 (1.001-1.035); Urine WBC 3 /hpf (0 - 5)
[2020-05-24] MEDS ORDERED: DOCUSATE SOD 100 MG CAP PO PRN (21:15)
[2020-05-24] MEDS ORDERED: ALBUTEROL SULF 2.5 MG/0.5ML(0.5%) NEB SOLN NEB PRN (21:15)
[2020-05-24] MEDS ORDERED: IPRATROPIUM BROM 0.5 MG/2.5ML INH SOL NEB PRN (21:15)
[2020-05-24] MEDS ORDERED: SODIUM CHLORIDE 0.9% 1,000 ML IV SCH (21:15)
[2020-05-24] MEDS ORDERED: cefTRIAXone 1GM/50ML D5W 50 ML IV SCH (21:15)
[2020-05-24] MEDS: ONDANSETRON HCL 4 MG/2 ML VIAL IV PRN (23:00)
[2020-05-24] MEDS: POTASSIUM CHL 20MEQ/100ML 100 ML IV SCH (23:23)
[2020-05-25] MEDS: KETOROLAC TROMETH 30 MG/ML 1ML VIAL IV PRN ×2 (00:38→12:15)
[2020-05-25] MEDS: ONDANSETRON HCL 4 MG/2 ML VIAL IV PRN ×2 (04:38→16:35)
[2020-05-25] MEDS: LORazepam 0.5 MG TAB PO PRN ×2 (04:40→21:40)
[2020-05-25 07:14] LABS: Lymphocytes # (auto) 1.2 10 ^3/uL (0.4-5.4); Nucleated Red Blood Cells % 0.1 %; White Blood Cell 4.5 10^3/uL (4.4-10.8)
[2020-05-25 07:17] LABS: Basophils # (auto) 0 10 ^3/uL (0-0.2); Basophils % (auto) 1.1 % (0.0-2.0); Eosinophils # (auto) 0 10 ^3/uL (0-0.8); Eosinophils % (auto) 1.1 % (0.0-7.0); Hemoglobin 10.1 g/dL (12.2-16.2); Lymphocytes % (auto) 27.3 % (10.0-50.0); Mean Corpuscular Hemoglobin 34.3 pg (28.0-32.0); Mean Corpuscular Hgb Conc. 33.6 g/dL (32.0-36.0); Mean Corpuscular Volume 102.2 fL (80.0-100.0); Monocytes # (auto) 0.4 10 ^3/uL (0-1.3); Monocytes % (auto) 9.1 % (0.0-12.0); Neutrophils # (auto) 2.7 10 ^3/uL (1.6-8.6); Neutrophils % (auto) 61.4 % (37.0-80.0); Platelet Count (auto) 141 10^3/uL (140-450); Red Blood Cells 2.93 10^6/uL (4.0-5.20)
[2020-05-25 07:33] LABS: Potassium 3.2 mmol/L (3.5-5.1)
[2020-05-25 07:41] LABS: BUN/Creatinine Ratio 17.6; Calcium 7.5 mg/dL (8.5-10.1)
[2020-05-25] MEDS ORDERED: POTASSIUM CHL 20MEQ/100ML 100 ML IV ONE ×2 (09:37→15:27)
[2020-05-25] MEDS: POTASSIUM CHL 20MEQ/100ML 100 ML IV SCH ×2 (12:17→15:30)
[2020-05-25] MEDS: B-COMPLEX W/ C & FOLIC ACID(NEPHROVITE TAB) PO SCH (12:32)
[2020-05-25 12:35] VITALS: BP 147/90
[2020-05-25] MEDS ORDERED: HYDROCORTISONE SOD SUCC 100 MG/2ML INJ VIAL IV ONE (13:45)
[2020-05-25] MEDS ORDERED: PANTOPRAZOLE 40 MG/10 ML VIAL INJ IV ONE (14:00)
[2020-05-25] MEDS ORDERED: LEVOTHYROXINE SODIUM 88 MCG TAB PO ONE (14:00)
[2020-05-25] MEDS ORDERED: DEXTROSE (50%) 50ML SYRG IV PRN (14:00)
[2020-05-25 16:35] VITALS: BP 156/83
[2020-05-25] MEDS: GABAPENTIN 300 MG CAP PO ONE ×2 (16:56→16:57)
[2020-05-25] MEDS: InsuLIN REG 1unit/0.01ml Soln (100units/ml) SC SCH ×2 (18:00→23:50)
[2020-05-25] MEDS: ACCU-CHEK COMFORT CURVE STRIP VI SCH ×2 (18:16→23:41)
[2020-05-25 20:00] VITALS: BP 155/75
[2020-05-25] MEDS: HYDROCORTISONE SOD SUCC 100 MG/2ML INJ VIAL IV SCH (21:40)
[2020-05-25] MEDS: GABAPENTIN 300 MG CAP PO SCH (21:40)
[2020-05-25] MEDS: SOD CHL 0.9%/ KCL 20MEQ 1,000 ML IV SCH (23:40)
[2020-05-26] MEDS ORDERED: traMADol HCL 50 MG TAB PO ONE (01:15)
[2020-05-26 05:08] VITALS: BP 112/74
[2020-05-26] MEDS: InsuLIN REG 1unit/0.01ml Soln (100units/ml) SC SCH ×3 (06:00→17:56)
[2020-05-26] MEDS: LEVOTHYROXINE SODIUM 88 MCG TAB PO SCH (06:46)
[2020-05-26] MEDS: ACCU-CHEK COMFORT CURVE STRIP VI SCH ×3 (06:46→17:55)
[2020-05-26 09:15] LABS: Eosinophils # (auto) 0 10 ^3/uL (0-0.8); Lymphocytes # (auto) 1.8 10 ^3/uL (0.4-5.4); Mean Corpuscular Hemoglobin 34.7 pg (28.0-32.0)
[2020-05-26 09:17] LABS: Basophils # (auto) 0.2 10 ^3/uL (0-0.2); Basophils % (auto) 3.6 % (0.0-2.0); Eosinophils % (auto) 0.1 % (0.0-7.0); Hematocrit 29.4 % (36.0-46.0); Lymphocytes % (auto) 35.7 % (10.0-50.0); Monocytes # (auto) 0.6 10 ^3/uL (0-1.3); Monocytes % (auto) 12.6 % (0.0-12.0); Neutrophils # (auto) 2.4 10 ^3/uL (1.6-8.6); Nucleated Red Blood Cells % 0.1 %; Platelet Count (auto) 165 10^3/uL (140-450); Red Blood Cells 2.88 10^6/uL (4.0-5.20); Red Cell Distribution Width 18.4 % (11.8-14.3)
[2020-05-26] MEDS ORDERED: SODIUM CHL 3% 100 ML IV ONE (09:30)
[2020-05-26 09:32] LABS: Albumin 3.5 g/dL (3.4-5.0); Calcium 7.9 mg/dL (8.5-10.1); Magnesium 2.3 mg/dL (1.6-2.6); Potassium 3.7 mmol/L (3.5-5.1)
[2020-05-26 09:38] LABS: BUN/Creatinine Ratio 7.3; Total Protein 6.7 g/dL (6.4-8.2)
[2020-05-26] MEDS: GABAPENTIN 300 MG CAP PO SCH ×2 (09:58→21:09)
[2020-05-26] MEDS: B-COMPLEX W/ C & FOLIC ACID(NEPHROVITE TAB) PO SCH (09:58)
[2020-05-26] MEDS: SOD CHL 0.9%/ KCL 20MEQ 1,000 ML IV SCH ×3 (09:59→12:30)
[2020-05-26] MEDS: HYDROCORTISONE SOD SUCC 100 MG/2ML INJ VIAL IV SCH (09:59)
[2020-05-26] MEDS ORDERED: PANTOPRAZOLE 40 MG/10 ML VIAL INJ IV SCH (10:00)
[2020-05-26] MEDS: CHOLESTYRAMINE 4 GM POWDER PO SCH ×2 (12:28→21:08)
[2020-05-26 13:00] VITALS: BP 141/80
[2020-05-26] MEDS ORDERED: TRAM-297 PO (14:41)
[2020-05-26 17:00] VITALS: BP 144/86
[2020-05-26] MEDS: traMADol HCL 50 MG TAB PO PRN (17:59)
[2020-05-26] MEDS: ONDANSETRON HCL 4 MG/2 ML VIAL IV PRN (17:59)
[2020-05-26 21:00] VITALS: BP 157/97
[2020-05-26] MEDS: LORazepam 0.5 MG TAB PO PRN (21:09)
[2020-05-26] MEDS: HYDROCORTISONE 10 MG TAB PO SCH (21:09)
[2020-05-27] MEDS: ACCU-CHEK COMFORT CURVE STRIP VI SCH ×5 (00:07→23:23)
[2020-05-27 05:00] VITALS: BP 138/86
[2020-05-27] MEDS: SOD CHL 0.9%/ KCL 20MEQ 1,000 ML IV SCH (05:44)
[2020-05-27] MEDS: InsuLIN REG 1unit/0.01ml Soln (100units/ml) SC SCH ×5 (05:45→23:25)
[2020-05-27] MEDS: LEVOTHYROXINE SODIUM 88 MCG TAB PO SCH (05:45)
[2020-05-27] MEDS: traMADol HCL 50 MG TAB PO PRN ×3 (05:45→21:33)
[2020-05-27 08:09] LABS: Potassium 3.2 mmol/L (3.5-5.1)
[2020-05-27 08:15] LABS: BUN/Creatinine Ratio 11.4; Calcium 8.2 mg/dL (8.5-10.1)
[2020-05-27 09:00] VITALS: BP 150/88
[2020-05-27] MEDS ORDERED: POTASSIUM CHL 20 Meq TABLET PO ONE (10:15)
[2020-05-27] MEDS ORDERED: DEMECLOCYCLINE HCL 150 MG TAB PO ONE (10:15)
[2020-05-27] MEDS ORDERED: PANTOPRAZOLE 40 MG TAB PO ONE (10:30)
[2020-05-27] MEDS: B-COMPLEX W/ C & FOLIC ACID(NEPHROVITE TAB) PO SCH (10:55)
[2020-05-27] MEDS: HYDROCORTISONE 10 MG TAB PO SCH ×2 (10:55→21:33)
[2020-05-27] MEDS: CHOLESTYRAMINE 4 GM POWDER PO SCH ×3 (10:55→22:30)
[2020-05-27] MEDS: GABAPENTIN 300 MG CAP PO SCH ×2 (10:55→21:33)
[2020-05-27 13:00] VITALS: BP 140/77
[2020-05-27 17:00] VITALS: BP 153/95
[2020-05-27 20:00] VITALS: BP 149/94
[2020-05-27] MEDS: DEMECLOCYCLINE HCL 150 MG TAB PO SCH (21:33)
[2020-05-27] MEDS: LORazepam 0.5 MG TAB PO PRN (21:33)
[2020-05-28 00:15] VITALS: BP 149/94
[2020-05-28] MEDS: traMADol HCL 50 MG TAB PO PRN (04:44)
[2020-05-28 05:27] VITALS: BP 138/90
[2020-05-28] MEDS: ACCU-CHEK COMFORT CURVE STRIP VI SCH ×2 (05:51→12:00)
[2020-05-28] MEDS: InsuLIN REG 1unit/0.01ml Soln (100units/ml) SC SCH ×2 (05:54→12:00)
[2020-05-28] MEDS: LEVOTHYROXINE SODIUM 88 MCG TAB PO SCH (06:07)
[2020-05-28 07:46] LABS: Calcium 8.3 mg/dL (8.5-10.1); Potassium 3.2 mmol/L (3.5-5.1)
[2020-05-28 09:00] VITALS: BP 129/81
[2020-05-28] MEDS: PANTOPRAZOLE 40 MG/10 ML VIAL INJ IV SCH ×2 (09:34→09:39)
[2020-05-28] MEDS: HYDROCORTISONE 10 MG TAB PO SCH (09:35)
[2020-05-28] MEDS: GABAPENTIN 300 MG CAP PO SCH (09:35)
[2020-05-28] MEDS: B-COMPLEX W/ C & FOLIC ACID(NEPHROVITE TAB) PO SCH (09:35)
[2020-05-28] MEDS: CHOLESTYRAMINE 4 GM POWDER PO SCH (09:40)
[2020-05-28] MEDS: DEMECLOCYCLINE HCL 150 MG TAB PO SCH (09:43)
[2020-05-28] MEDS ORDERED: PANTOPRAZOLE 40 MG TAB PO SCH (10:00)
[2020-05-28] MEDS ORDERED: POTASSIUM CHL 20 Meq TABLET PO ONE (10:30)
[2020-05-28 10:37] VITALS: BP 129/81
[2020-05-28] MEDS ORDERED: PANTOPRAZOLE 40 MG TAB PO ONE (10:45)
[2020-05-28 13:00] VITALS: BP 139/85
== END 2020-05-28 15:55 | disposition home or self-care (01) | DRG 644 ==
LOC: ER 12:03 → TELE-CENTR 12:04 → TELE 21:51 → TELE-WESTW 05-25 20:20
PROVIDERS: ADMIT Hospitalist; ATTEND Internal Medicine
DX: E22.2 Syndrome of inappropriate secretion of antidiuretic hormone (principal); N39.0 Urinary tract infection, site not specified; E27.40 Unspecified adrenocortical insufficiency; E87.6 Hypokalemia; E66.9 Obesity, unspecified; Z68.28 Body mass index [BMI] 28.0-28.9, adult; E03.9 Hypothyroidism, unspecified; E78.5 Hyperlipidemia, unspecified; I10 Essential (primary) hypertension; Z96.652 Presence of left artificial knee joint; E11.9 Type 2 diabetes mellitus without complications; Z80.3 Family history of malignant neoplasm of breast; Z83.3 Family history of diabetes mellitus; Z87.310 Personal history of (healed) osteoporosis fracture; Z92.21 Personal history of antineoplastic chemotherapy; Z90.49 Acquired absence of other specified parts of digestive tract; Z88.0 Allergy status to penicillin; Z88.8 Allergy status to other drugs, medicaments and biological substances; D53.9 Nutritional anemia, unspecified; Z68.29 Body mass index [BMI] 29.0-29.9, adult
CPT/HCPCS: 36415; 71045; 80048; 80053; 81001; 82962; 83735; 83930; 83935; 85025; 87081; 87086; 93005; 99291; C9113; G0378; J1815; J1885; J2405; J3480

== ENCOUNTER → 2020-06-02 | Outpatient (CLI) | payer OTHER ==
[~2020-06-02] MED LIST changes: +TRAM-297 PO
[2020-06-02 11:02] LABS: Albumin 3.6 g/dL (3.4-5.0); Potassium 3.6 mmol/L (3.5-5.1)
[2020-06-02 11:05] LABS: BUN/Creatinine Ratio 35.3; Bilirubin, Total 0.7 mg/dL (0.2-1.0)
[2020-06-02 11:13] LABS: Basophils # (auto) 0.2 10 ^3/uL (0-0.2); Basophils % (auto) 2.3 % (0.0-2.0); Eosinophils # (auto) 0 10 ^3/uL (0-0.8); Hemoglobin 11.4 g/dL (12.2-16.2); Neutrophils # (auto) 3.3 10 ^3/uL (1.6-8.6); Platelet Count (auto) 235 10^3/uL (140-450); Red Cell Distribution Width 19.5 % (11.8-14.3)
[2020-06-02 11:14] LABS: Eosinophils % (auto) 0.2 % (0.0-7.0); Hematocrit 34.8 % (36.0-46.0); Lymphocytes # (auto) 3.3 10 ^3/uL (0.4-5.4); Lymphocytes % (auto) 41.6 % (10.0-50.0); Mean Corpuscular Hemoglobin 34.9 pg (28.0-32.0); Mean Corpuscular Hgb Conc. 32.9 g/dL (32.0-36.0); Mean Corpuscular Volume 106.2 fL (80.0-100.0); Monocytes # (auto) 1.2 10 ^3/uL (0-1.3); Monocytes % (auto) 14.8 % (0.0-12.0); Neutrophils % (auto) 41.1 % (37.0-80.0); Red Blood Cells 3.27 10^6/uL (4.0-5.20)
== END | disposition home or self-care (01) ==
LOC: LAB 10:22
PROVIDERS: ATTEND Internal Medicine
DX: C34.90 Malignant neoplasm of unspecified part of unspecified bronchus or lung (principal)
CPT/HCPCS: 36415; 80053; 83615; 85025

== ENCOUNTER → 2020-06-30 | Outpatient (CLI) | payer OTHER ==
[2020-06-30 11:11] LABS: Basophils # (auto) 0 10 ^3/uL (0-0.2); Eosinophils # (auto) 0 10 ^3/uL (0-0.8); Eosinophils % (auto) 0.1 % (0.0-7.0); Mean Corpuscular Hgb Conc. 32.4 g/dL (32.0-36.0); Monocytes # (auto) 0.9 10 ^3/uL (0-1.3); Red Cell Distribution Width 17.4 % (11.8-14.3)
[2020-06-30 11:14] LABS: Basophils % (auto) 0.1 % (0.0-2.0); Hemoglobin 11.7 g/dL (12.2-16.2); Lymphocytes # (auto) 1.3 10 ^3/uL (0.4-5.4); Lymphocytes % (auto) 12.5 % (10.0-50.0); Mean Corpuscular Hemoglobin 35.2 pg (28.0-32.0); Mean Corpuscular Volume 108.6 fL (80.0-100.0); Monocytes % (auto) 9.2 % (0.0-12.0); Neutrophils # (auto) 7.9 10 ^3/uL (1.6-8.6); Neutrophils % (auto) 78.1 % (37.0-80.0); Platelet Count (auto) 225 10^3/uL (140-450); Red Blood Cells 3.32 10^6/uL (4.0-5.20); White Blood Cell 10.1 10^3/uL (4.4-10.8)
[2020-06-30 12:10] LABS: Potassium 3.9 mmol/L (3.5-5.1)
[2020-06-30 12:19] LABS: BUN/Creatinine Ratio 20.7; Bilirubin, Total 0.6 mg/dL (0.2-1.0); Calcium 8.7 mg/dL (8.5-10.1); Total Protein 6.7 g/dL (6.4-8.2)
== END | disposition home or self-care (01) ==
LOC: LAB 10:41
PROVIDERS: ATTEND Internal Medicine
DX: C34.90 Malignant neoplasm of unspecified part of unspecified bronchus or lung (principal); Z88.0 Allergy status to penicillin; Z88.1 Allergy status to other antibiotic agents
CPT/HCPCS: 36415; 80053; 83615; 85025

== ENCOUNTER → 2020-07-21 | Outpatient (CLI) | payer OTHER ==
[2020-07-21 09:50] LABS: Basophils # (auto) 0 10 ^3/uL (0-0.2); Basophils % (auto) 0.1 % (0.0-2.0); Eosinophils # (auto) 0 10 ^3/uL (0-0.8); Eosinophils % (auto) 0.1 % (0.0-7.0); Hemoglobin 11.4 g/dL (12.2-16.2); Lymphocytes # (auto) 1.3 10 ^3/uL (0.4-5.4); Red Cell Distribution Width 16.8 % (11.8-14.3)
[2020-07-21 09:52] LABS: Hematocrit 33.3 % (36.0-46.0); Lymphocytes % (auto) 15.1 % (10.0-50.0); Mean Corpuscular Hemoglobin 35.3 pg (28.0-32.0); Mean Corpuscular Hgb Conc. 34.2 g/dL (32.0-36.0); Mean Corpuscular Volume 103.3 fL (80.0-100.0); Monocytes % (auto) 12.4 % (0.0-12.0); Neutrophils % (auto) 72.3 % (37.0-80.0); Platelet Count (auto) 261 10^3/uL (140-450); Red Blood Cells 3.23 10^6/uL (4.0-5.20); White Blood Cell 8.3 10^3/uL (4.4-10.8)
[2020-07-21 10:06] LABS: Calcium 8.8 mg/dL (8.5-10.1); Potassium 3.1 mmol/L (3.5-5.1)
[2020-07-21 10:11] LABS: Albumin 2.6 g/dL (3.4-5.0); BUN/Creatinine Ratio 30.5; Total Protein 7.1 g/dL (6.4-8.2)
== END | disposition home or self-care (01) ==
LOC: LAB 08:54
PROVIDERS: ATTEND Internal Medicine
DX: C34.90 Malignant neoplasm of unspecified part of unspecified bronchus or lung (principal); Z88.0 Allergy status to penicillin; Z88.8 Allergy status to other drugs, medicaments and biological substances
CPT/HCPCS: 36415; 80053; 83615; 85025

== ENCOUNTER → 2020-08-14 | Outpatient (CLI) | payer OTHER ==
[2020-08-14 09:15] LABS: White Blood Cell 9.7 10^3/uL (4.4-10.8)
[2020-08-14 09:16] LABS: Hematocrit 33.6 % (36.0-46.0); Hemoglobin 10.9 g/dL (12.2-16.2); Mean Corpuscular Hemoglobin 33.8 pg (28.0-32.0); Mean Corpuscular Hgb Conc. 32.5 g/dL (32.0-36.0); Mean Corpuscular Volume 104.1 fL (80.0-100.0); Platelet Count (auto) 229 10^3/uL (140-450); Red Blood Cells 3.23 10^6/uL (4.0-5.20); Red Cell Distribution Width 18.7 % (11.8-14.3)
[2020-08-14 09:20] LABS: Band Neutrophils % (manual) 0; Basophils % (manual) 0 (0.0-2.0); Blast Cells 0; Eosinophils % (manual) 0 (0-7); Metamyelocytes % 0; Myelocytes % 0; Promyelocytes % 0; Reactive Lymphocytes 0
[2020-08-14 10:04] LABS: Potassium 3.6 mmol/L (3.5-5.1)
[2020-08-14 10:11] LABS: Lymphocytes % (manual) 21 (10.0-50.0); Monocytes % (manual) 4 (0-12)
[2020-08-14 10:24] LABS: Albumin 2.4 g/dL (3.4-5.0); BUN/Creatinine Ratio 25.5; Bilirubin, Total 4.9 mg/dL (0.2-1.0); Total Protein 6.4 g/dL (6.4-8.2)
== END | disposition home or self-care (01) ==
LOC: LAB 08:28
PROVIDERS: ATTEND Internal Medicine
DX: Z01.812 Encounter for preprocedural laboratory examination (principal); M79.89 Other specified soft tissue disorders
CPT/HCPCS: 36415; 80053; 83615; 85007; 85027

== ENCOUNTER → 2020-08-17 | Outpatient (CLI) | payer OTHER ==
[~2020-08-17] MED LIST changes: +IOHEXOL 350 MG/ML 100ML IJ ONE
== END | disposition home or self-care (01) ==
LOC: CT 08:32
PROVIDERS: ATTEND Internal Medicine
DX: C78.7 Secondary malignant neoplasm of liver and intrahepatic bile duct (principal); J98.11 Atelectasis; J42 Unspecified chronic bronchitis; J43.9 Emphysema, unspecified; I25.10 Atherosclerotic heart disease of native coronary artery without angina pectoris; M48.54XA Collapsed vertebra, not elsewhere classified, thoracic region, initial encounter for fracture; I70.0 Atherosclerosis of aorta; M79.89 Other specified soft tissue disorders; Z98.890 Other specified postprocedural states
CPT/HCPCS: 71260; Q9967

== ENCOUNTER → 2020-08-24 | Outpatient (CLI) | payer OTHER ==
[~2020-08-24] MED LIST changes: -IOHEXOL 350 MG/ML 100ML IJ ONE
[2020-08-24 09:03] LABS: Hematocrit 33.1 % (36.0-46.0); Hemoglobin 10.6 g/dL (12.2-16.2); Mean Corpuscular Hemoglobin 33.5 pg (28.0-32.0); Mean Corpuscular Hgb Conc. 31.9 g/dL (32.0-36.0); Mean Corpuscular Volume 104.8 fL (80.0-100.0); Platelet Count (auto) 243 10^3/uL (140-450); Red Blood Cells 3.15 10^6/uL (4.0-5.20); White Blood Cell 14.1 10^3/uL (4.4-10.8)
[2020-08-24 09:04] LABS: Red Cell Distribution Width 20.3 % (11.8-14.3)
[2020-08-24 09:06] LABS: Basophils % (manual) 0 (0.0-2.0); Blast Cells 0; Eosinophils % (manual) 0 (0-7); Promyelocytes % 0; Reactive Lymphocytes 0
[2020-08-24 09:43] LABS: Albumin 2.3 g/dL (3.4-5.0); Calcium 9.2 mg/dL (8.5-10.1); Potassium 4.1 mmol/L (3.5-5.1)
[2020-08-24 09:56] LABS: BUN/Creatinine Ratio 30.3; Bilirubin, Total 9.8 mg/dL (0.2-1.0); Total Protein 6.2 g/dL (6.4-8.2)
[2020-08-24 10:27] LABS: Band Neutrophils % (manual) 16; Lymphocytes % (manual) 14 (10.0-50.0); Metamyelocytes % 3; Monocytes % (manual) 4 (0-12); Myelocytes % 3
== END | disposition home or self-care (01) ==
LOC: LAB 08:28
PROVIDERS: ATTEND Internal Medicine
DX: C34.90 Malignant neoplasm of unspecified part of unspecified bronchus or lung (principal); Z88.0 Allergy status to penicillin; Z88.1 Allergy status to other antibiotic agents; Z88.8 Allergy status to other drugs, medicaments and biological substances
CPT/HCPCS: 36415; 80053; 83615; 85007; 85027

== ENCOUNTER 2020-08-28 10:45 | Inpatient (IN) | payer OTHER ==
[~2020-08-28] VITALS: Ht 160 cm; Wt 82.5 kg
[2020-08-28] MEDS ORDERED: SODIUM CHLORIDE 0.9% 500 ML IV ONE (11:00)
[2020-08-28] MEDS ORDERED: MORPHINE SULF INJ 2 MG/ML SYRINGE 1ML IV ONE (11:00)
[2020-08-28] MEDS ORDERED: ONDANSETRON HCL 4 MG/2 ML VIAL IV ONE (11:00)
[2020-08-28 11:38] LABS: Mean Corpuscular Volume 106.8 fL (80.0-100.0)
[2020-08-28 11:40] LABS: Hematocrit 33.7 % (36.0-46.0); Hemoglobin 10.5 g/dL (12.2-16.2); Mean Corpuscular Hemoglobin 33.3 pg (28.0-32.0); Mean Corpuscular Hgb Conc. 31.1 g/dL (32.0-36.0); Platelet Count (auto) 181 10^3/uL (140-450); Red Blood Cells 3.16 10^6/uL (4.0-5.20); White Blood Cell 13.8 10^3/uL (4.4-10.8)
[2020-08-28 11:45] LABS: Albumin 2.3 g/dL (3.4-5.0); Calcium 8.9 mg/dL (8.5-10.1); Magnesium 2.1 mg/dL (1.6-2.6); Potassium 3.7 mmol/L (3.5-5.1)
[2020-08-28 11:50] LABS: Bilirubin, Total 11.6 mg/dL (0.2-1.0); Total Protein 6.2 g/dL (6.4-8.2)
[2020-08-28 11:58] LABS: Basophils % (manual) 0 (0.0-2.0); Blast Cells 0; Eosinophils % (manual) 0 (0-7); Promyelocytes % 0; Reactive Lymphocytes 0
[2020-08-28 12:08] LABS: INR 1.51 (0.9-1.15); Partial Thromboplastin Time 21.2 sec (23.0-31.2)
[2020-08-28 13:10] LABS: Band Neutrophils % (manual) 5; Lymphocytes % (manual) 3 (10.0-50.0); Metamyelocytes % 3; Monocytes % (manual) 7 (0-12); Myelocytes % 1
[2020-08-28] MEDS ORDERED: ONDANSETRON HCL 4 MG/2 ML VIAL IV PRN (16:30)
[2020-08-28] MEDS ORDERED: DOCUSATE CALCIUM 240 MG CAP PO PRN (16:30)
[2020-08-28] MEDS: SODIUM CHLORIDE 0.9% 1,000 ML IV SCH (16:30)
[2020-08-28] MEDS ORDERED: ACETAMINOPHEN 325 MG TAB PO PRN (16:30)
[2020-08-28] MEDS ORDERED: LABETALOL HCL 5 MG/ML 4ML SYRINGE IV PRN (16:30)
[2020-08-28] MEDS ORDERED: NITROGLYCERIN 0.4 MG SL TAB SL PRN (16:30)
[2020-08-28] MEDS ORDERED: DEXTROSE (50%) 50ML SYRG IV PRN (16:30)
[2020-08-28] MEDS: ACCU-CHEK COMFORT CURVE STRIP VI SCH ×2 (20:00→23:52)
[2020-08-28 20:44] VITALS: BP 126/62
[2020-08-28 20:53] VITALS: BP 122/74
[2020-08-28] MEDS: InsuLIN REG 1unit/0.01ml Soln (100units/ml) SC SCH ×2 (21:19→23:52)
[2020-08-28] MEDS ORDERED: LEVO88TA4 PO (21:36)
[2020-08-28] MEDS ORDERED: LEVO100T8 PO (21:36)
[2020-08-28] MEDS ORDERED: HYDR-4623 PO (21:36)
[2020-08-28] MEDS ORDERED: FURO20TA3 PO (21:36)
[2020-08-28] MEDS ORDERED: LISI-646 PO (21:36)
[2020-08-28] MEDS ORDERED: DIPH2.5T73 PO (21:36)
[2020-08-28] MEDS ORDERED: GLIP5TAB12 PO (21:36)
[2020-08-28] MEDS ORDERED: PROC10TA2 PO (21:36)
[2020-08-28] MEDS ORDERED: POTA-220 PO (21:36)
[2020-08-28] MEDS ORDERED: SITA100T7 PO ×2 (21:36→21:38)
[2020-08-28 22:00] VITALS: BP 126/62
[2020-08-28] MEDS: BUDESONIDE (INHALATION) 0.5 MG/2 ML NEB NEB SCH (22:00)
[2020-08-29] MEDS: ACCU-CHEK COMFORT CURVE STRIP VI SCH ×6 (04:01→23:54)
[2020-08-29] MEDS: InsuLIN REG 1unit/0.01ml Soln (100units/ml) SC SCH ×6 (04:08→23:54)
[2020-08-29 05:00] VITALS: BP 132/68
[2020-08-29] MEDS: SODIUM CHLORIDE 0.9% 1,000 ML IV SCH ×2 (06:10→19:55)
[2020-08-29] MEDS: ALBUTEROL SULF 2.5 MG/0.5ML(0.5%) NEB SOLN NEB PRN ×2 (07:20→19:32)
[2020-08-29] MEDS: BUDESONIDE (INHALATION) 0.5 MG/2 ML NEB NEB SCH ×2 (07:20→19:32)
[2020-08-29 07:25] LABS: Hemoglobin 9.2 g/dL (12.2-16.2); Platelet Count (auto) 151 10^3/uL (140-450); Red Blood Cells 2.66 10^6/uL (4.0-5.20)
[2020-08-29 07:28] LABS: Hematocrit 28.1 % (36.0-46.0); Mean Corpuscular Hemoglobin 34.7 pg (28.0-32.0); Mean Corpuscular Hgb Conc. 32.8 g/dL (32.0-36.0); Mean Corpuscular Volume 105.6 fL (80.0-100.0); Red Cell Distribution Width 19.8 % (11.8-14.3)
[2020-08-29 07:45] LABS: Albumin 1.9 g/dL (3.4-5.0); Potassium 3.5 mmol/L (3.5-5.1)
[2020-08-29 07:49] LABS: INR 1.55 (0.9-1.15)
[2020-08-29 07:56] LABS: Band Neutrophils % (manual) 0; Basophils % (manual) 0 (0.0-2.0); Blast Cells 0; Eosinophils % (manual) 0 (0-7); Promyelocytes % 0; Reactive Lymphocytes 0
[2020-08-29 07:58] LABS: BUN/Creatinine Ratio 42.4; Bilirubin, Total 9.7 mg/dL (0.2-1.0); Calcium 8.5 mg/dL (8.5-10.1); Total Protein 5.3 g/dL (6.4-8.2)
[2020-08-29] MEDS ORDERED: HYDROCORTISONE 10 MG TAB PO SCH (08:00)
[2020-08-29 09:00] VITALS: BP 130/69
[2020-08-29] MEDS ORDERED: LEVOTHYROXINE SODIUM 25 MCG TAB PO ONE ×2 (10:30→10:45)
[2020-08-29] MEDS ORDERED: LEVOTHYROXINE SODIUM 112 MCG TAB PO ONE (10:45)
[2020-08-29] MEDS: PANTOPRAZOLE 40 MG TAB PO SCH (10:54)
[2020-08-29] MEDS: ENOXAPARIN SOD 40 MG/0.4 ML SYRINGE SC SCH (10:54)
[2020-08-29 11:36] LABS: Lymphocytes % (manual) 9 (10.0-50.0); Metamyelocytes % 1; Monocytes % (manual) 7 (0-12); Myelocytes % 2
[2020-08-29 13:00] VITALS: BP 139/82
[2020-08-29 17:00] VITALS: BP 134/78
[2020-08-29] MEDS: HYDROCORTISONE 10 MG TAB PO SCH (21:01)
[2020-08-29] MEDS: LORazepam 0.5 MG TAB PO PRN (21:11)
[2020-08-29] MEDS: GABAPENTIN 300 MG CAP PO PRN (21:11)
[2020-08-29 22:00] VITALS: BP 136/70
[2020-08-30] MEDS: ACCU-CHEK COMFORT CURVE STRIP VI SCH ×5 (03:57→21:45)
[2020-08-30] MEDS: InsuLIN REG 1unit/0.01ml Soln (100units/ml) SC SCH ×4 (04:00→16:42)
[2020-08-30 05:00] VITALS: BP 127/67
[2020-08-30] MEDS: LEVOTHYROXINE SODIUM 25 MCG TAB PO SCH (06:44)
[2020-08-30] MEDS: LEVOTHYROXINE SODIUM 112 MCG TAB PO SCH (06:44)
[2020-08-30] MEDS ORDERED: LEVOTHYROXINE SODIUM 25 MCG TAB PO SCH (07:00)
[2020-08-30 08:54] VITALS: BP 128/68
[2020-08-30] MEDS: HYDROCORTISONE 10 MG TAB PO SCH ×2 (11:00→21:45)
[2020-08-30] MEDS: ENOXAPARIN SOD 40 MG/0.4 ML SYRINGE SC SCH (11:00)
[2020-08-30] MEDS: PANTOPRAZOLE 40 MG TAB PO SCH (11:00)
[2020-08-30] MEDS ORDERED: DEXTROSE (50%) 50ML SYRG IV PRN (12:45)
[2020-08-30] MEDS: SODIUM CHLORIDE 0.9% 1,000 ML IV SCH ×2 (12:59→20:36)
[2020-08-30 13:00] VITALS: BP 143/75
[2020-08-30] MEDS: traMADol HCL 50 MG TAB PO PRN ×2 (13:35→21:45)
[2020-08-30] MEDS: NYSTATIN (MOUTH-THROAT) 500,000 UNITS/5 ML SUSP MT SCH ×2 (16:42→21:45)
[2020-08-30 17:00] VITALS: BP 134/71
[2020-08-30] MEDS: ALBUTEROL SULF 2.5 MG/0.5ML(0.5%) NEB SOLN NEB PRN (19:28)
[2020-08-30] MEDS: BUDESONIDE (INHALATION) 0.5 MG/2 ML NEB NEB SCH (19:28)
[2020-08-30] MEDS: LORazepam 0.5 MG TAB PO PRN (21:45)
[2020-08-30 22:00] VITALS: BP 133/69
[2020-08-30] MEDS ORDERED: InsuLIN REG 1unit/0.01ml Soln (100units/ml) SC SCH (22:00)
[2020-08-31 05:00] VITALS: BP 136/73
[2020-08-31] MEDS: NYSTATIN (MOUTH-THROAT) 500,000 UNITS/5 ML SUSP MT SCH ×2 (06:41→12:37)
[2020-08-31] MEDS: LEVOTHYROXINE SODIUM 25 MCG TAB PO SCH (06:41)
[2020-08-31] MEDS: LEVOTHYROXINE SODIUM 112 MCG TAB PO SCH (06:41)
[2020-08-31] MEDS: InsuLIN REG 1unit/0.01ml Soln (100units/ml) SC SCH ×2 (07:16→12:25)
[2020-08-31] MEDS: ACCU-CHEK COMFORT CURVE STRIP VI SCH ×2 (07:17→12:05)
[2020-08-31 08:30] VITALS: BP 148/73
[2020-08-31] MEDS: HYDROCORTISONE 10 MG TAB PO SCH (08:45)
[2020-08-31] MEDS: ENOXAPARIN SOD 40 MG/0.4 ML SYRINGE SC SCH (08:45)
[2020-08-31] MEDS: PANTOPRAZOLE 40 MG TAB PO SCH (08:45)
[2020-08-31] MEDS: traMADol HCL 50 MG TAB PO PRN (08:46)
[2020-08-31] MEDS: GABAPENTIN 300 MG CAP PO PRN (08:46)
[2020-08-31] MEDS: SODIUM CHLORIDE 0.9% 1,000 ML IV SCH (11:10)
[2020-08-31] MEDS: BUDESONIDE (INHALATION) 0.5 MG/2 ML NEB NEB SCH (11:48)
[2020-08-31 12:41] VITALS: BP 137/73
[2020-08-31 16:33] VITALS: BP 131/70
== END 2020-08-31 16:30 | disposition hospice, home (50) | DRG 181 ==
LOC: ER 10:45 → EDBD 10:45 → OVERFLOW 16:35 → WEST WING 20:44
PROVIDERS: ADMIT Family Medicine; ATTEND Family Medicine
DX: C34.01 Malignant neoplasm of right main bronchus (principal); E87.1 Hypo-osmolality and hyponatremia; E27.40 Unspecified adrenocortical insufficiency; C78.7 Secondary malignant neoplasm of liver and intrahepatic bile duct; C79.51 Secondary malignant neoplasm of bone; D64.9 Anemia, unspecified; D72.829 Elevated white blood cell count, unspecified; E03.9 Hypothyroidism, unspecified; E86.0 Dehydration; I10 Essential (primary) hypertension; K72.90 Hepatic failure, unspecified without coma; E80.6 Other disorders of bilirubin metabolism; E11.65 Type 2 diabetes mellitus with hyperglycemia; E78.5 Hyperlipidemia, unspecified; Z20.822 Contact with and (suspected) exposure to COVID-19; Z80.3 Family history of malignant neoplasm of breast; Z83.3 Family history of diabetes mellitus; Z85.118 Personal history of other malignant neoplasm of bronchus and lung; Z87.891 Personal history of nicotine dependence; Z92.21 Personal history of antineoplastic chemotherapy; Z88.6 Allergy status to analgesic agent; Z88.1 Allergy status to other antibiotic agents; Z88.0 Allergy status to penicillin; Z90.49 Acquired absence of other specified parts of digestive tract; S61.411A Laceration without foreign body of right hand, initial encounter; W18.30XA Fall on same level, unspecified, initial encounter; Y93.89 Activity, other specified; Y92.89 Other specified places as the place of occurrence of the external cause
CPT/HCPCS: 36415; 71045; 80053; 82533; 82962; 83036; 83735; 83880; 84443; 84484; 85007; 85027; 85610; 85730; 87040; 87081; 87426; 93005; 94640; 96360; 96361; G0378; J1815